=== PATIENT | female | born 1955 | race Caucasian/White ===

== ENCOUNTER 2018-06-03 15:31 | Emergency (ER) | payer MEDICARE, SELFPAY ==
[2018-06-03 15:32] VITALS: BP 104/58; PULSE 59; RESP 16; TEMP 36.6; O2SAT 98; BMI 44.4
--- NOTE | 2018-06-03 15:59 | ED.VISSUMM ---
- ER Visit Summary Date of Service: 06/03/18 Chief Complaint: Right ear pain and drainage History of Present Illness: The patient is a 63 F presents to the emergency department with right ear pain and drainage. Patient has had symptoms for the past 2 or 3 days. She states she has had a lot of drainage from right ear and decreased hearing. She denies any fevers or chills. She has had a scant cough. She denies any nausea or vomiting. Patient has no history of diabetes. She states that her ear to get wet about a week ago. Physical Examination: Vital signs reviewed General: Well-nourished, well-developed Head: Normocephalic, atraumatic Eyes: Pupils equal and reactive, extraocular muscles intact ENT: Patient has otitis externa of the right ear. There is no perforation. There is no mastoid tenderness. Left ear is normal. Neck, supple, no lymphadenopathy Heart: Regular rate and rhythm Respiratory: No distress, clear bilaterally Abdomen: Soft, nontender, nondistended, no peritoneal signs Back: Nontender Extremities: Nontender, no edema, no cords Skin: Normal color no rash Neuro: Alert and oriented, no focal or lateralizing deficits Test Results: [] Emergency Department Course and Treatment: Patient has acute otitis externa of the left ear. There is no evidence of malignant otitis externa. The canal itself is almost swollen closed. It would not hold a wick. With this, the patient will be started on oral Cipro. She will be continued on this as an outpatient. She will be discharged home. Treatment Plan: [] Disposition: Discharge Impression: 1. Otitis externa of the right ear This note was generated with [employer] dictation software. It may contain incorrect words, spelling, and punctuation that were not noted in review of the chart prior to signing ED Disposition - Plan for ED Patient: Chief Complaint: Ear Problem Instructions: ED Otitis Externa Prescriptions: Ciprofloxacin [Cipro] 500 mg PO BID #14 tab Referrals: Rufino Howard MD [Primary Care Provider] -
[2018-06-03] MEDS: Ciprofloxacin 500 MG Tablet PO (16:18)
[2018-06-03 16:19] VITALS: RESP 18
== END 2018-06-03 16:19 | disposition home or self-care (01) ==
PROVIDERS: Emergency Provider Emergency Medicine
DX: H60.91 Unspecified otitis externa, right ear (principal); I10 Essential (primary) hypertension; Z72.0 Tobacco use
CPT/HCPCS: 99283

== ENCOUNTER → 2018-07-21 15:32 | Outpatient (CLI) | payer MEDICARE, SELFPAY | PROVIDERS: Visit Provider Otolaryngology | DX: H92.10 Otorrhea, unspecified ear (principal) | CPT/HCPCS: 87070; 87075; 87077; 87186; 87205 ==

== ENCOUNTER 2020-09-10 19:09 | Emergency (ER) | payer MEDICARE, MEDICAID, SELFPAY ==
[2020-09-10 19:10] VITALS: BP 135/87; PULSE 60; RESP 17; TEMP 36.3; O2SAT 98; BMI 41.0
--- NOTE | 2020-09-10 19:23 | ED.DCSUM_ITS ---
History of Present Illness Chief Complaint: Back Informant: Patient Onset: Days Context: Gradual Onset Timing: Continuous Current Severity: Moderate Maximum Severity: Moderate Narrative: Patient is a 65-year-old female with medical history significant for hypertension and prior back pain that presents to the emergency department increasing low back pain. The patient states that she had a fall about a week ago. She was in her kitchen. She states that she was doing some cleaning and stepped back and lost her balance. She fell to the ground on her buttocks. She states since then, she is had pain in her lumbar back. It is nonradiating. It does not go down the legs. She denies any trouble urinating or moving her bowels. She states that she is tried Tylenol and muscle relaxer with little improvement. She is still able to ambulate without issue. Prior similar symptoms: No Recent Illness/Hospitalization: No Past Medical History - Allergies and Home Meds Allergies/Adverse Reactions: Allergies No Known Allergies Allergy (Verified 09/10/20 19:10) Primary Care Physician: Rufino Jernigan MD [Primary Care Provider] - Prior records reviewed: Yes Past Medical History: - - Hypertension Surgical History: noncontributory, TURP Smoking Status: Current every day smoker Review of Systems General: Denies: Chills, Fever, Sweats Eyes: Denies: Visual changes - bilaterally, Diplopia ENT: Denies: Rhinorrhea, Sore throat Cardiovascular: Denies: Chest pain, Palpitations Respiratory: Denies: Dyspnea, Cough, Dyspnea on exertion Gastrointestinal: Denies: Abdominal pain, Nausea, Vomiting, Diarrhea, Melena, Hematochezia Genitourinary: Denies: Dysuria, Hematuria, Frequency Musculoskeletal: Reports: Back pain. Denies: Extremity Pain Skin: Denies: Rash, Wounds Neurological: Denies: Headache, Weakness, Numbness Physical Exam Vital Signs/Narrative: Vital Signs Temp Pulse Resp BP Pulse Ox 09/10/20 19:10 97.3 F L 60 17 135/87 H 98 Inital Vital Signs reviewed: Yes General: Well nourished, Well developed, No Acute Distress Head: Normocephalic, Atraumatic Eyes: Perrl, EOMI ENT: Moist mucous membranes, No rhinorrhea Neck: Supple, Nontender Cardiovascular: Regular rate, Regular rhythm, No murmurs Respiratory: No distress, CTA bilaterally, Chest nontender Abdomen: Soft, Nontender, Nondistended, Normal bowel sounds Back: Normal Inspection, - - Paraspinal lumbar tenderness. No midline bony tenderness. No step-off. Extremities: Nontender, No edema Skin: Normal color, No rash Neurological: Alert, Oriented x3, Cranial nerves II-XII grossly intact, Normal Strength, Normal Sensation Psychological: Normal affect, Normal Mood Diagnostic/Tx/Re-eval Clinical Impression(s) from Imaging Studies Lumbar Spine X-Ray 09/10/20 19:25 IMPRESSION: No fracture or dislocation in the lumbar spine. Stable mild to moderate degenerative changes which are most pronounced at L5/S1. Electronically Signed: Mazin Vance, at 20:19 EDT Tel , Service support , - Medical Decision Making The patient presents with low back pain. She did have a fall. She has no red flag symptoms. She has a normal gait. She has no significant midline tenderness. However, given trauma and advanced age I did obtain plain films. There is no evidence of acute fracture. Patient was given 1 [place] with improvement of her symptoms. I do suspect that this is likely just lumbar strain. I will treat her with a short course of analgesics. She is comfortable with this plan of care and will be discharged home. Impression 1. Lumbar contusion ED Disposition - Plan for ED Patient: Disposition: Home or Assisted Living Instructions: ED LUMBAR SPRAIN/STRAIN Prescriptions: Hydrocodone Bitart/Apap 5-325 [[place] 5MG-325MG] 1 tab PO Q6H PRN PRN 3 Days #10 tab PRN Reason: Pain Prescription Printed Referrals: Rufino Jernigan MD [Primary Care Provider] -
--- NOTE | 2020-09-10 19:25 | RAD_ITS ---
STUDY: X-RAY - LUMBAR SPINE REASON FOR EXAM: Female, 65 years old. Fall. Pain. TECHNIQUE: 3 view(s) of the lumbar spine were obtained. COMPARISON: 03/10/15 FINDINGS: There is no evidence of fracture or dislocation in the lumbar spine. The vertebral body heights are well-maintained. There are stable [id number] degenerative changes which are most pronounced at L5/S1. RAD/Lumbar Spine 2 or 3 Views IMPRESSION: No fracture or dislocation in the lumbar spine. Stable mild to moderate degenerative changes which are most pronounced at L5/S1. Electronically Signed: Mazin Vance, at 20:19 EDT Tel , Service support ,
[2020-09-10] MEDS: HYDROcodone Bitartrate/Apap 5/325 Tablet PO (19:43)
[2020-09-10 20:47] VITALS: RESP 18
== END 2020-09-10 20:47 | disposition home or self-care (01) ==
LOC: ED 19:49
PROVIDERS: Emergency Provider Emergency Medicine; PCP Family Medicine
DX: S30.0XXA Contusion of lower back and pelvis, initial encounter (principal); I10 Essential (primary) hypertension; F17.200 Nicotine dependence, unspecified, uncomplicated; Z79.899 Other long term (current) drug therapy; W18.39XA Other fall on same level, initial encounter; Y93.E9 Activity, other interior property and clothing maintenance; Y92.000 Kitchen of unspecified non-institutional (private) residence as the place of occurrence of the external cause; Y99.9 Unspecified external cause status
CPT/HCPCS: 72100; 99281; 99283

== ENCOUNTER 2020-09-14 19:58 | Emergency (ER) | payer MEDICARE, MEDICAID, SELFPAY ==
[2020-09-14 19:59] VITALS: BP 130/82; PULSE 61; RESP 16; TEMP 35.9; O2SAT 99; BMI 41.1
[2020-09-14 20:28] VITALS: O2SAT 96
--- NOTE | 2020-09-14 20:50 | RAD_ITS ---
STUDY: X-RAY CHEST REASON FOR EXAM: Female, 65 years old. COUGH and amp; STUFFY NOSE X 4 DAYS -- HX OF HTN AND CHRONIC BRONCHITIS TECHNIQUE: Frontal and lateral views of the chest. COMPARISON: 11/12/2017 FINDINGS: The lungs remain hyperinflated. There is no new focal consolidation. Normal size heart. Normal mediastinum and dony. Normal visualized pulmonary arteries. Normal visualized aortic arch and descending thoracic aorta. There are diffuse degenerative changes of the visualized thoracic spine. Normal visualized ribs, clavicles, and shoulders. There is no demonstrated abnormality of the visualized soft tissue structures of the upper abdomen. RAD/Chest PA and Lateral IMPRESSION: No acute cardiopulmonary process. Electronically Signed: Radha Jerez MD at 21:12 EDT Tel , Service support ,
--- NOTE | 2020-09-14 20:51 | ED.VIS.GEN ---
History of Present Illness Chief Complaint: Cough Narrative: This patient is a 65-year-old female who presents with chief complaint of I think I have bronchitis. She is had about 4 days of URI-like illness. She complains of congestion and rhinorrhea. She complains of cough. No chest pain no shortness of breath no fevers or vomiting. Her son was ill with a similar URI-like illness and is improving now. Past Medical History - Allergies and Home Meds Allergies/Adverse Reactions: Allergies No Known Allergies Allergy (Verified 09/14/20 20:02) Primary Care Physician: Rufino Jernigan MD [Primary Care Provider] - Past Medical History: - - Hypertension Surgical History: noncontributory, TURP Smoking Status: Current every day smoker Review of Systems All systems negative except as indicated General: Denies: Fever ENT: Reports: - - Congestion, rhinorrhea Cardiovascular: Denies: Chest pain Respiratory: Reports: Cough. Denies: Dyspnea Gastrointestinal: Denies: Vomiting, Diarrhea Skin: Denies: Rash Neurological: Denies: Headache Physical Exam Vital Signs/Narrative: Vital Signs Temp Pulse Resp BP Pulse Ox 09/14/20 19:59 96.6 F L 61 16 130/82 H 99 Inital Vital Signs reviewed: Yes General: Well nourished Head: Normocephalic Eyes: EOMI ENT: Moist mucous membranes Neck: Supple Cardiovascular: Regular rate Respiratory: No distress, Wheezing - Scattered expiratory wheezing. Negative for: Rales, Rhonchi Abdomen: Soft Skin: Normal color Neurological: Alert Psychological: Normal affect Diagnostic/Tx/Re-eval Impressions Chest X-Ray 09/14/20 20:50 IMPRESSION: No acute cardiopulmonary process. Electronically Signed: Radha Jerez MD at 21:12 EDT Tel , Service support , 09/14/20 20:50 Chest PA and Lateral [RAD] Stat - Medical Decision Making Patient was given a DuoNeb aerosol. Chest x-ray as above is negative. Patient's presentation is consistent with a viral bronchitis. Given her wheezing we will place on a steroid burst and she was also given a prescription for an albuterol inhaler. Patient was discharged. Patient does understand return for new or worsening symptoms. ED Disposition - Plan for ED Patient: Disposition: Home or Assisted Living Diagnosis: Bronchitis Instructions: Acute Bronchitis Prescriptions: predniSONE tablet 60 mg PO DAILY #15 tab Prescription Printed Albuterol Inhaler [Ventolin Hfa] 1 - 2 puff INHALATION Q4H PRN PRN #1 inhaler PRN Reason: Wheezing Prescription Printed Referrals: Rufino Jernigan MD [Primary Care Provider] -
[2020-09-14 21:10] VITALS: PULSE 88; RESP 16
[2020-09-14] MEDS: Ipratropium/Albuterol Sulfate 3 ML AMPUL.NEB INHALATION (21:10)
[2020-09-14 22:01] VITALS: BP 129/78; PULSE 61; RESP 16; O2SAT 96
== END 2020-09-14 22:02 | disposition home or self-care (01) ==
LOC: ED 21:53
PROVIDERS: Emergency Provider Emergency Medicine; PCP Family Medicine
DX: J40 Bronchitis, not specified as acute or chronic (principal); F17.200 Nicotine dependence, unspecified, uncomplicated; I10 Essential (primary) hypertension
CPT/HCPCS: 71046; 94640; 99282

== ENCOUNTER 2021-03-14 19:50 | Emergency (ER) | payer MEDICARE, MEDICAID, SELFPAY ==
[2021-03-14 19:51] VITALS: BP 131/76; PULSE 62; RESP 15; TEMP 35.8; O2SAT 98; BMI 41.1
[2021-03-14 19:53] VITALS: BP 131/76; PULSE 62; RESP 15; TEMP 35.8; O2SAT 98
--- NOTE | 2021-03-14 20:02 | ED.DCSUM_ITS ---
History of Present Illness Chief Complaint: Cold Sx Narrative: Patient presents with cough and congestion for 4 to 5 days it is now becoming slightly productive. She has had similar symptoms in the past with bronchitis successfully treated with antibiotics and steroids. She has no fever or chills she has no shortness of breath. She has some upper airway congestion. No chest pain. She has no breathing difficulty. No abdominal pain no back pain no tearing sensation. No pleuritic component. Past medical history: Hypertension, history of bronchitis Medications: Reviewed Social history: Non-smoker otherwise noncontributory Review of systems: All systems negative except as indicated General: No fever Eyes: No visual changes ENT: Upper airway congestion as in HPI. No difficulty swallowing no change in voice. Neck: No neck pain Cardiovascular: No chest pain Respiratory: No shortness of breath. Somewhat productive cough as in HPI Gastrointestinal: No abdominal pain, nausea vomiting or diarrhea Genitourinary: No dysuria Musculoskeletal: Denies myalgias no difficulty with ambulation Skin: No rash Neurological: No memory loss, confusion or any focal weakness Psych: No recent behavioral changes Hematologic: No easy bleeding or easy bruising Physical exam General: Well nourished, Well developed, No Acute Distress Head: Normocephalic, Atraumatic Eyes: Conjunctiva not pale ENT: Moist mucous membranes. There is some upper airway congestion and rhinorrhea. Normal voice. Normal soft palate some postnasal drip. Neck: Supple, Nontender, No lymphadenopathy Cardiovascular: Regular rate, Regular rhythm Respiratory: No distress, CTA bilaterally Abdomen: Soft, Nontender, Nondistended Back: Nontender, Normal Inspection. Negative for: CVA tenderness Extremities: Nontender, No edema Skin: Normal color, No rash Neurological: Alert, Normal Strength, Normal Sensation Psychological: Normal affect Past Medical History - Allergies and Home Meds Allergies/Adverse Reactions: Allergies No Known Allergies Allergy (Verified 03/14/21 19:54) Primary Care Physician: Rufino Jernigan MD [Primary Care Provider] - Surgical History: noncontributory, TURP Smoking Status: Former smoker Physical Exam Vital Signs/Narrative: Vital Signs Temp Pulse Resp BP Pulse Ox 03/14/21 19:53 96.5 F L 62 15 131/76 H 98 03/14/21 19:51 96.5 F L 62 15 131/76 H 98 Diagnostic/Tx/Re-eval - Medical Decision Making Patient signs and symptoms are consistent with bronchitis, I will treat as such. ED Disposition - Plan for ED Patient: Disposition: Home or Assisted Living Diagnosis: Acute bronchitis Instructions: ED Upper Resp Infec Abx Tx Prescriptions: Prednisone [Deltasone] 20 mg PO DAILY #4 tablet Transmission Status: Pending to [facility]30 Doxycycline 100 mg PO BID #20 capsule Transmission Status: Pending to [facility] Referrals: Rufino Jernigan MD [Primary Care Provider] - 2 Days
[2021-03-14] MEDS: predniSONE 20 MG Tablet 40 MG PO (20:30)
[2021-03-14] MEDS: Doxycycline 100 MG CAPSULE PO (20:30)
[2021-03-14 20:34] VITALS: RESP 14
== END 2021-03-14 20:34 | disposition home or self-care (01) ==
LOC: ED 20:17
PROVIDERS: Emergency Provider Emergency Medicine; PCP Family Medicine
DX: J20.9 Acute bronchitis, unspecified (principal); Z87.891 Personal history of nicotine dependence; I10 Essential (primary) hypertension
CPT/HCPCS: 99283

== ENCOUNTER 2022-03-31 12:28 | Emergency (ER) | payer MEDICARE, MEDICAID, SELFPAY ==
[2022-03-31 12:30] VITALS: BP 141/83; PULSE 43; RESP 12; TEMP 35.2; O2SAT 95; BMI 45.3
--- NOTE | 2022-03-31 12:44 | EKG12_ITS ---
Test Reason : XOCHITL Blood Pressure : / mmHG Vent. Rate : 043 BPM Atrial Rate : 043 BPM P-R Int : 180 ms QRS Dur : 102 ms QT Int : 510 ms P-R-T Axes : 066 -11 018 degrees QTc Int : 430 ms Marked sinus bradycardia Abnormal ECG Confirmed by ESME SANTA, ARVIND ([id number]), primer expeditor and drier BAMBI BEST ([id number]) on 04/02/2022 8:12:14 AM Referred By: ROSIE Confirmed By:LORI VICTORIA MD
--- NOTE | 2022-03-31 12:46 | EX.ED.DYSGE1 ---
HPI History of Present Illness Chief Complaint: General Illness Informant: patient Narrative Narrative: Patient sent to the ED for evaluation for asymptomatic bradycardia. I spoke with healthcare provider prior to arrival. Patient went there for normal health visit today. Found to heart rate in the 30s at 35 reported EKG heart rate was 39. She is on metoprolol 50 mg twice daily for hypertension. Also on lisinopril and hydrochlorothiazide. Denies any recent vomiting or diarrhea denies lightheaded or any exertional dyspnea symptoms. She does not know her baseline heart rate at this time. I reviewed patient's EKG from the office there is sinus rate of 39 due to artifacts that baseline unable to evaluate any clear heart blocks. QTc 420. Prior similar symptoms: No PFSH [facility] Medical History (Updated 03/31/22 @ 15:[address] Clinton Jovel DO) HTN (hypertension) Home Medications hydrochlorothiazide 25 mg PO DAILY 06/03/18 [History Last Taken Unknown] lisinopril 10 mg PO DAILY 06/03/18 [History Last Taken Unknown] metoprolol tartrate 50 mg PO BID 06/03/18 [History Last Taken Unknown] albuterol sulfate 1 - 2 puff INHALATION Q4H PRN PRN #1 inhaler 09/14/20 [Rx Last Taken Unknown] prednisone 60 mg PO DAILY #15 tab 09/14/20 [Rx Last Taken Unknown] doxycycline monohydrate 100 mg PO BID #20 capsule 03/14/21 [Rx Last Taken Unknown] prednisone 20 mg PO DAILY #4 tablet 03/14/21 [Rx Last Taken Unknown] Allergy/AdvReac Type Severity Reaction Status Date / Time No Known Allergies Allergy Verified 03/31/22 12:30 Social History Smoking Status: Smoker, status unknown tobacco type: cigarettes ROS ROS ED Constitutional Constitutional ED: Denies chills, fever(s) or sweats Eyes Eyes: Denies change in vision ENT ENT ED: Denies dysphagia or sore throat Cardiovascular Cardiovascular: Denies chest pain, leg edema, palpitations or racing heartbeat Respiratory/Chest Respiratory/Chest: Denies cough, dyspnea or dyspnea on exertion Gastrointestinal Gastrointestinal: Denies abdominal pain, diarrhea, nausea or vomiting Genitourinary Genitourinary ED: Denies dysuria, hematuria or urinary frequency Musculoskeletal Musculoskeletal: Denies back pain, extremity pain or neck pain Integumentary Denies rash or wounds Neurologic Neurologic: Denies headache(s), paresthesias or weakness EXAM Physical Exam Const Vital Signs: 03/31/22 12:30 03/31/22 13:01 03/31/22 13:13 Temperature 95.4 F L Temperature Source Temporal Pulse Rate 43 L 46 L Respiratory Rate 12 22 H Respiratory Effort Normal Respiratory Pattern Normal Blood Pressure 141/83 H 105/70 Blood Pressure Mean 102 81 Pulse Ox 95 98 Oxygen Delivery Method Room Air Room Air Positive well nourished and well developed General Appearance ED: well developed and NAD HEENT Reports moist mucous membranes normocephalic and atraumatic Eyes PERRL, EOMs intact bilaterally and conjunctivae normal General Eye ED: Yes normal appearance of both eyes Neck no lymphadenopathy and supple General: Negative for tenderness Chest Wall Chest: Negative for tenderness Resp normal respiratory effort and normal air movement Effort and Inspection: symmetric chest movement; Negative for respiratory distress Cardio regular rhythm and no murmurs Rate: bradycardia Peripheral Pulses: pulses 2+ throughout GI normal to inspection, nondistended, normoactive bowel sounds and non-tender Palpation: Negative for guarding or rebound tenderness present Back/Spine no CVA tenderness and no thoracic nor lumbar tenderness Extremity normal to inspection General Extremety ED: Negative for edema or tenderness General Extremity: Negative for edema Neuro oriented x3 and no sensory deficits noted Sensorium / Orientation: awake and alert Skin no rashes or lesions noted and no wounds MDM MDM MDM Narrative Medical decision making narrative: Heart rate in the 40s on the monitor sinus rhythm, blood pressure 141/83. Will recheck EKG. Will check labs. will reevaluate. EKG is sinus rate of 43 there is no signs of heart block. Patient laboratory studies stable TSH slightly elevated at 7. Sent for free T4 level which is pending. Patient remained stable blood pressure systolic 140s dipped down to 105 at 1 point however rechecked prior to discharge with systolic 140s. She remained asymptomatic she walked in here. She is on metoprolol. Plan is to hold metoprolol and have her see her PCP. I spoke with her PCP Dr. Jernigan who request I speak with cardiology. also reported she had 2 no-shows in the office concerns of follow-up. I spoke with on-call sustainment logistics analyst, Dr. Art, who agrees with holding metoprolol she needs to see her PCP in 2 days for repeat EKG. I spoke with patient who states she will follow-up with her PCP. I respoke with her PCP who will get her in to the office on Tuesday. Lab Data Labs: Laboratory Results - last 24 hr 03/31/22 03/31/22 03/31/22 13:10 13:10 13:43 WBC Cancelled 9.2 Corrected WBC Cancelled RBC Cancelled 5.09 Hgb Cancelled 14.4 Hct Cancelled 45.3 MCV Cancelled 89.0 MCH Cancelled 28.3 MCHC Cancelled 31.8 L RDW Std Deviation Cancelled 43.8 RDW Coeff of Terrie Cancelled 13.5 Plt Count Cancelled 195 MPV Cancelled 11.9 Immature Gran % (Auto) Cancelled 0.500 Neut % (Auto) Cancelled 56.9 Lymph % (Auto) Cancelled 17.9 L Glenn % (Auto) Cancelled 5.4 Eos % (Auto) Cancelled 17.9 H Baso % (Auto) Cancelled 1.4 H Absolute Neuts (auto) Cancelled 5.2 Absolute Lymphs (auto) Cancelled 1.65 Total Counted Cancelled Neutrophils % (Manual) Cancelled Band Neutrophils % Cancelled Lymphocytes % (Manual) Cancelled Monocytes % (Manual) Cancelled Eosinophils % (Manual) Cancelled Basophils % (Manual) Cancelled Metamyelocytes % Cancelled Myelocytes % Cancelled Promyelocytes % Cancelled Blast Cells % Cancelled Plasma Cell % (Manual) Cancelled Other Cells % Cancelled Nucleated RBC % Cancelled 0 Nucleated RBCs/100 WBC Cancelled Differential Comment Cancelled Diff Path Review Cancelled Hypersegmented Neuts Cancelled Atypical Lymphocytes Cancelled Reactive Lymphocytes Cancelled Smudge Cells Cancelled Toxic Granulation Cancelled Toxic Vacuolation Cancelled Dohle Bodies Cancelled Krystal Rods Cancelled Platelet Estimate Cancelled Plt Morphology Comment Cancelled RBC Morphology Cancelled Polychromasia Cancelled Hypochromasia Cancelled Poikilocytosis Cancelled Basophilic Stippling Cancelled Anisocytosis Cancelled 1+ Microcytosis Cancelled Macrocytosis Cancelled Spherocytes Cancelled Sickle Cells Cancelled Target Cells Cancelled Tear Drop Cells Cancelled Ovalocytes Cancelled Stomatocytes Cancelled [place] Bodies Cancelled [place] Cells Cancelled Bite Cells Cancelled Crenated Cell Cancelled Acanthocytes (Spur) Cancelled Rouleaux Cancelled Schistocytes Cancelled Sodium Cancelled Potassium Cancelled Chloride Cancelled Carbon Dioxide Cancelled Anion Gap Cancelled BUN Cancelled Creatinine Cancelled Estim Creat Clear Calc Cancelled Est GFR (MDRD) Af Amer Cancelled Est GFR (MDRD) Non-Af Cancelled BUN/Creatinine Ratio Cancelled Glucose Cancelled Calcium Cancelled Magnesium Cancelled TSH Cancelled Free T4 03/31/22 03/31/22 13:43 13:43 WBC Corrected WBC RBC Hgb Hct MCV MCH MCHC RDW Std Deviation RDW Coeff of Terrie Plt Count MPV Immature Gran % (Auto) Neut % (Auto) Lymph % (Auto) Glenn % (Auto) Eos % (Auto) Baso % (Auto) Absolute Neuts (auto) Absolute Lymphs (auto) Total Counted Neutrophils % (Manual) Band Neutrophils % Lymphocytes % (Manual) Monocytes % (Manual) Eosinophils % (Manual) Basophils % (Manual) Metamyelocytes % Myelocytes % Promyelocytes % Blast Cells % Plasma Cell % (Manual) Other Cells % Nucleated RBC % Nucleated RBCs/100 WBC Differential Comment Diff Path Review Hypersegmented Neuts Atypical Lymphocytes Reactive Lymphocytes Smudge Cells Toxic Granulation Toxic Vacuolation Dohle Bodies Krystal Rods Platelet Estimate Plt Morphology Comment RBC Morphology Polychromasia Hypochromasia Poikilocytosis Basophilic Stippling Anisocytosis Microcytosis Macrocytosis Spherocytes Sickle Cells Target Cells Tear Drop Cells Ovalocytes Stomatocytes [place] Bodies Kun Cells Bite Cells Crenated Cell Acanthocytes (Spur) Rouleaux Schistocytes Sodium 140 Potassium 3.5 Chloride 103 Carbon Dioxide 33.0 H Anion Gap 4 L BUN 17 Creatinine 1.16 H Estim Creat Clear Calc 36.71 Est GFR (MDRD) Af Amer 60 Est GFR (MDRD) Non-Af 49 L BUN/Creatinine Ratio 14.7 Glucose 129 H Calcium 9.4 Magnesium 1.9 TSH 7.07 H Free T4 0.79 EKG Initial EKG: Attestation: I personally reviewed and interpreted this EKG as follows: Comments: Sinus rate of 43, no ST or T wave changes, QTC 430. No signs of heart block. Discharge Plan Triage Chief Complaint: General Illness ED Provider: Clinton Jovel Dx/Rx/DC Orders Clinical Impression: Sinus bradycardia, History of hypertension Instructions: ED Bradycardia Prescriptions: No Action lisinopril 10 MG tablet 10 mg PO DAILY RF: 0 metoprolol tartrate 50 MG tablet 50 mg PO BID RF: 0 hydrochlorothiazide 25 MG tablet 25 mg PO DAILY RF: 0 prednisone 20 MG tablet 60 mg PO DAILY Qty: 15 RF: 0 albuterol sulfate 1 INHALER inhaler 1 - 2 puff INHALATION Q4H PRN PRN (Reason: Wheezing) Qty: 1 RF: 0 prednisone 20 MG tablet 20 mg PO DAILY Qty: 4 RF: 0 doxycycline monohydrate 100 MG capsule 100 mg PO BID Qty: 20 RF: 0 Primary Care Provider: Rufino Jernigan Referrals: Rufino Jernigan MD [Primary Care Provider] - 2 Days Activity Restrictions/Additional Instructions: You have sinus bradycardia EKG there is no signs of heart block. Your TSH is 7.07. Free levels are sent and pending. Other electrolytes are normal. Hold your metoprolol. Per cardiology recommendations. You need to see your PCP office in 2 days for repeat EKG. You develop any symptoms of lightheaded, exertional dyspnea or syncopal episodes return to the ED immediately. Disposition Disposition: Home, Self Care
[2022-03-31 13:13] VITALS: BP 105/70; PULSE 46; RESP 22; O2SAT 98
--- NOTE | 2022-03-31 13:22 | NURSING ---
CBC IS CLOTTED, LAB WILL REPRINT LABEL
[2022-03-31 13:51] LABS: Absolute Lymphocyte Count 1.65 X10^3/uL (0.83-4.51); Absolute Neutrophil Count 5.2 X10^3/uL (2.0-7.7); Basophil# 0.13 X10^3/uL; Basophil% 1.4 % (0-1); Eosinophil# 1.65 X10^3/uL; Eosinophils% 17.9 % (0-5); Hematocrit 45.3 % (37-47); Hemoglobin 14.4 g/dL (12.0-15.0); Lymphocyte # 1.65 X10^3/ul (0.83-4.51); Lymphocyte % 17.9 % (19-41); Mean Corp Hgb Conc 31.8 g/dL (32-36); Mean Corpuscular Hgb 28.3 pg (27.0-32.0); Mean Platelet Vol. 11.9 fl (6.2-12.0); Monocyte% 5.4 % (0-10); NRBC Flagged by Analyzer 0 % (0-5); Neutrophil # 5.22 X10^3/uL (2.7-7.7); Neutrophil % 56.9 % (47-70); POSITIVE MORPHOLOGY YES; Platelet Count 195 K/mm3 (150-450); RBC Distribution Width CV 13.5 % (11.6-14.6); RBC Distribution Width SD 43.8 fl (35.1-43.9); Red Blood Count 5.09 M/mm3 (4.2-5.4); White Blood Count 9.2 K/mm3 (4.4-11.0)
[2022-03-31 13:56] LABS: Differential Indicated SCAN CRITERIA MET
[2022-03-31 14:15] LABS: Anion Gap 4 (5-15); BUN 17 mg/dL (7-18); BUN/Creat Ratio 14.7 RATIO (10-20); Calcium,Total 9.4 mg/dL (8.5-10.1); Chloride 103 mmol/L (98-107); Creatinine, Serum 1.16 mg/dL (0.55-1.02); EST Glomerular Filtration Rate 49 mL/min (>60); Est Glom Filt Rate - Afr Amer 60 mL/min (>60); Estimated Creatinine Clearance 36.71 ml/min; Glucose 129 mg/dL (74-106); Magnesium 1.9 mg/dL (1.6-2.6); Potassium 3.5 mmol/L (3.5-5.1); Sodium Level 140 mmol/L (136-145); Thyroid Stim Hormone (TSH) 7.07 uIU/mL (0.358-3.74)
[2022-03-31 14:22] LABS: Anisocytosis 1+
[2022-03-31 15:07] LABS: T4 Free Direct 0.79 ng/dL (0.76-1.46)
[2022-03-31 15:23] VITALS: BP 115/77; PULSE 48; RESP 16; TEMP 36.9; O2SAT 98
== END 2022-03-31 15:41 | disposition home or self-care (01) ==
PROVIDERS: Emergency Provider Emergency Medicine; PCP Family Medicine; Visit Provider Emergency Medicine
DX: R00.1 Bradycardia, unspecified (principal); I10 Essential (primary) hypertension; F17.210 Nicotine dependence, cigarettes, uncomplicated
CPT/HCPCS: 36415; 80048; 83735; 84439; 84443; 85025; 93005; 99284; A4216

== ENCOUNTER 2023-08-30 11:44 | Inpatient (IN) | payer MEDICARE, MEDICAID, SELFPAY ==
[2023-08-30] VITALS (7 sets, daily range): BP systolic 121–142; BP diastolic 78–97; PULSE 71–101; RESP 16–21; TEMP 35.2–36.9; O2SAT 93–100; BMI 41.7; BMI 40.9
--- NOTE | 2023-08-30 12:01 | CT_ITS ---
STUDY: CT ABDOMEN AND PELVIS WITH CONTRAST REASON FOR EXAM: Female, 68 years old. Abdominal pain. Blood in the stool. RADIATION DOSAGE (If Supplied By Facility): CTDIvol = ( 15.19 ) mGy, DLP = ( 1147.32 ) mGycm TECHNIQUE: Transaxial images were obtained from the dome of the diaphragm to the symphysis pubis without oral contrast. IV 100mL Isovue-300 was administered. Sagittal and coronal images were reconstructed. Individualized dose optimization techniques were used for this CT. COMPARISON: None. FINDINGS: The visualized lung bases are unremarkable. Coronary artery calcification. There is decreased attenuation of the liver consistent with steatosis. Normal gallbladder and extrahepatic biliary system. There are multiple benign calcified granulomata of the spleen. There is a 1 cm partially calcified splenic artery aneurysm in the region of the splenic hilum. There is diffuse atrophy of the pancreas. There is a small, circumscribed, smooth, low attenuation left adrenal mass, consistent with an adrenal adenoma. This measures 2.2 cm. This is essentially unchanged as compared to prior study dated August 31, 2012. Normal right adrenal gland. Normal right kidney. 1 cm cyst in the lower pole of the left kidney. Normal visualized stomach. Normal small intestine. Diffuse circumferential wall thickening of the distal half of the transverse colon in the left hemicolon down to the rectum with colitis. Increased markings are seen in the surrounding peritoneal fat with the increased markings in the left perinephric space. There is scattered atherosclerotic calcification of the abdominal aorta and its major visceral branches., without a demonstrated aneurysm. Normal inferior vena cava. Normal retroperitoneum. Normal urinary bladder. Small amount of fluid is seen in the pelvis. Normal abdominal wall. Disc space narrowing and degeneration at the L5-S1 level. Stable bilateral pars defects at the L5 vertebrae. CT/Abdomen/Pelvis W IV Cont ONLY IMPRESSION: Colitis as described. Diffuse fatty infiltration of the liver. 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 Small left adrenal adenoma. Electronically Signed: Kenny Bonilla MD at 13:54 EDT ,
--- NOTE | 2023-08-30 12:01 | ED.VIS.GI ---
HPI HPI - GI History of Present Illness Chief Complaint: GI Bleed Narrative Narrative: 68-year-old female presenting for evaluation of blood in her stool x3 days. States she only has it when she has a bowel movement but she is not passing stool. She only has blood coming out of her rectum. She states that she did not try a laxative or stool softener even though she has not had a bowel movement 3 days. She states she took some Pepto-Bismol which did not help the abdominal pain or stop the bleeding. She has had some vomiting as well states she vomited for the last couple of days. She states it is sporadic. She states her vomit is basically clear fluids. No fever at home. Her only abdominal surgery was a hysterectomy. No urinary, vaginal complaints. She complains of lower abdominal pain in the right lower quadrant in the left lower quadrant. PFSH PFS Medical History HTN (hypertension) Home Medications hydrochlorothiazide 25 mg tablet 25 mg PO DAILY 06/03/18 [History Last Taken Unknown] lisinopril 10 mg tablet 10 mg PO DAILY 06/03/18 [History Last Taken Unknown] metoprolol tartrate 50 mg tablet 50 mg PO BID 06/03/18 [History Last Taken Unknown] albuterol sulfate 90 mcg/actuation aerosol inhaler 1 - 2 puff inhalation Q4H PRN PRN Wheezing ##1 09/14/20 [Rx Last Taken Unknown] prednisone 20 mg tablet 60 mg (3 x 20 mg) PO DAILY ##15 09/14/20 [Rx Last Taken Unknown] doxycycline monohydrate 100 mg capsule 100 mg PO BID #20 CAPSULES 03/14/21 [Rx Last Taken Unknown] prednisone 20 mg tablet 20 mg PO DAILY #4 tabs 03/14/21 [Rx Last Taken Unknown] Allergy/AdvReac Type Severity Reaction Status Date / Time No Known Allergies Allergy Verified 08/30/23 11:45 Social History Smoking Status: Smoker, status unknown tobacco type: cigarettes ROS ROS ED Constitutional Constitutional ED: Denies chills, fever(s) or sweats Eyes Eyes: Denies blurry vision or change in vision ENT ENT ED: Denies ear pain or sore throat Cardiovascular Cardiovascular: Denies chest pain, palpitations or racing heartbeat Respiratory/Chest Respiratory/Chest: Denies cough, dyspnea or sputum Gastrointestinal Gastrointestinal: Reports abdominal pain, nausea, vomiting and other Details: Bright red bleeding per rectum ; Denies constipation or diarrhea Genitourinary Genitourinary ED: Denies dysuria, hematuria or urinary frequency Musculoskeletal Musculoskeletal: Denies arthralgias, myalgias or neck pain Integumentary Denies abscess, Abrasions or rash Neurologic Neurologic: Denies headache(s), paresthesias or weakness Psychiatric Psychiatric: Denies anxiety, depression, suicidal ideation or suicidal thoughts Endocrine Endocrinology: Denies polydipsia or polyuria EXAM Physical Exam Const Vital Signs: 08/30/23 11:45 08/30/23 13:46 Temperature 95.4 F L Temperature Source Temporal Pulse Rate 101 H 71 Respiratory Rate 18 18 Blood Pressure 124/97 H 131/81 H Blood Pressure Mean 106 97 Pulse Ox 100 93 Oxygen Delivery Method Room Air Positive well nourished General Appearance ED: NAD; Negative for pallor HEENT Reports moist mucous membranes normocephalic and atraumatic Eyes PERRL and EOMs intact bilaterally General Eye ED: Negative for pale conjunctiva Resp normal respiratory effort Effort and Inspection: Negative for respiratory distress Cardio regular rhythm Rate: tachycardic GI Palpation: tender LLQ and RLQ Back/Spine no CVA tenderness Neuro CN's II-XII intact bilaterally, moves all extremities and no sensory deficits noted Sensorium / Orientation: alert Psych mental status grossly normal and thought process normal Skin General Skin Exam: Negative for jaundice or pallor MDM MDM MDM Narrative Medical decision making narrative: Patient presenting with right flank pain. Differential includes colitis, diverticulitis, gastritis, constipation, appendicitis, UTI, pyelonephritis, calculi, ureteral calculi, obstruction, malignancy, dehydration, electrolyte abnormalities, ovarian torsion, ovarian cyst, ectopic , anemia, GI bleed. CBC will be obtained to assess white blood cell count, hemoglobin, differential. CMP to assess liver function, renal function, electrolytes, glucose, anion gap.. Urinalysis to assess for UTI. Patient was typed and screened due to history of GI bleeding. Slightly tachycardic so she was given a liter of normal saline. Status will be obtained. Patient states as far as her pain is concerned she can only describe it as pain. I after if it was sharp, stabbing, burning, aching, throbbing, squeezing, cramping however the patient states she can only describe it as pain. She states that the pain is currently not present. Her nausea is currently not present either. Clines analgesia and antiemetics. CBC shows a leukocytosis of 17.7. Hemoglobin stable at 14.1. Hematocrit 44.6. Platelets normal at 210. Creatinine slightly elevated at 1.[address] and was given IV fluids. Potassium slightly low at 3.0 otherwise electrolytes unremarkable. LFTs are normal. Lipase is negative. Analysis negative for infection. Patient was typed and screened although she does not need blood currently. CT of the abdomen pelvis shows diffuse colitis from the mid transverse colon to the rectum. Patient was discussed with Dr. Bro who recommended Zosyn. He also recommended enteropathogenic panel for stool, C. difficile, ESR, CRP, LDH, lactic acid which were all ordered and will be followed on the medical floor. Patient discussed with hospice for admission. Impression: 1. Nausea/vomiting 2. Colitis 3. GI bleed 4. Hypokalemia Lab Data Labs: Laboratory Results - last 24 hr 08/30/23 08/30/23 12:10 13:10 WBC 17.7 H RBC 5.16 Hgb 14.1 Hct 44.6 MCV 86.4 MCH 27.3 MCHC 31.6 L RDW Std Deviation 44.4 H RDW Coeff of Terrie 14.0 Plt Count 210 MPV 12.7 H Immature Gran % (Auto) 0.700 Neut % (Auto) 79.8 H Lymph % (Auto) 10.8 L [place] % (Auto) 5.4 Eos % (Auto) 2.7 Baso % (Auto) 0.6 Absolute Neuts (auto) 14.1 H Absolute Lymphs (auto) 1.90 Nucleated RBC % 0 Sodium 137 Potassium 3.0 L Chloride 103 Carbon Dioxide 27.0 Anion Gap 7 BUN 18 Creatinine 1.13 H Estim Creat Clear Calc 37.16 Est GFR (MDRD) Af Amer 61 Est GFR (MDRD) Non-Af 51 L BUN/Creatinine Ratio 15.9 Glucose 163 H Calcium 9.0 Total Bilirubin 1.00 AST 12 L ALT 17 Alkaline Phosphatase 72 Total Protein 7.0 Albumin 3.3 Globulin 3.7 Albumin/Globulin Ratio 0.9 Lipase 19 Urine Color Yellow Urine Clarity Clear Urine pH 6.5 Ur Specific [place] 1.015 Urine Protein 15 H Urine Glucose (UA) Normal Urine Ketones Negative Urine Occult Blood 10 H Urine Nitrite Negative Urine Bilirubin Negative Urine Urobilinogen Normal Ur Leukocyte Esterase 100 H Urine RBC 0 SEEN Urine WBC 5-10 SEEN Ur Squamous Epith Cells 0-5 SEEN Urine Bacteria RARE Urine Mucus 0 SEEN Blood Type A POSITIVE Antibody Screen NEGATIVE Radiography Diagnostic Testing: Clinical Impression(s) from Imaging Studies Abdomen/Pelvis CT 08/30/23 12:01 IMPRESSION: Colitis as described. Diffuse fatty infiltration of the liver. 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 Small left adrenal adenoma. Electronically Signed: Kenny Bonilla MD at 13:54 EDT , Discharge Plan Triage Chief Complaint: GI Bleed ED Provider: Erwin Adams Dx/Rx/DC Orders Prescriptions: No Action lisinopril 10 MG tablet 10 mg PO DAILY Patient Comments: Take 1 tablet by mouth once daily. metoprolol tartrate 50 MG tablet 50 mg PO BID Patient Comments: TAKE 1 TABLET TWICE DAILY hydrochlorothiazide 25 MG tablet 25 mg PO DAILY Patient Comments: Take 1 tablet by mouth once daily. prednisone 20 MG tablet 60 mg PO DAILY Qty: 15 0RF albuterol sulfate 1 INHALER inhaler 1 - 2 puff INHALATION Q4H PRN PRN (Reason: Wheezing) Qty: 1 0RF prednisone 20 MG tablet 20 mg PO DAILY Qty: 4 0RF Rx Instructions: With food doxycycline monohydrate 100 MG capsule 100 mg PO BID Qty: 20 0RF Primary Care Provider: Rufino Jernigan Referrals: Rufino Jernigan MD [Primary Care Provider] -
[2023-08-30] MEDS: 0.9% Normal Saline (1000mL) 1,000 ML 1000 ML IV (12:10)
[2023-08-30 12:36] LABS: Absolute Neutrophil Count 14.1 X10^3/uL (2.0-7.7); Basophil% 0.6 % (0-1); Eosinophil# 0.48 X10^3/uL; Eosinophils% 2.7 % (0-5); Hematocrit 44.6 % (37-47); Hemoglobin 14.1 g/dL (12.0-15.0); Lymphocyte % 10.8 % (19-41); Mean Corp Hgb Conc 31.6 g/dL (32-36); Mean Corpuscular Hgb 27.3 pg (27.0-32.0); Mean Corpuscular Volume 86.4 fL (81-99); Mean Platelet Vol. 12.7 fl (6.2-12.0); Monocyte# 0.95 X10^3/uL; Monocyte% 5.4 % (0-10); NRBC Flagged by Analyzer 0 % (0-5); Neutrophil # 14.12 X10^3/uL (2.7-7.7); Neutrophil % 79.8 % (47-70); Platelet Count 210 K/mm3 (150-450); RBC Distribution Width SD 44.4 fl (35.1-43.9); Red Blood Count 5.16 M/mm3 (4.2-5.4); White Blood Count 17.7 K/mm3 (4.4-11.0)
[2023-08-30 12:45] LABS: ALB/GLOB Ratio 0.9 RATIO (0.9-2.4); AST(SGOT) 12 U/L (15-37); Alanine Aminotransfer ALT/SGPT 17 U/L (13-56); Albumin, Serum 3.3 g/dL (3.2-5.0); Alkaline Phosphatase 72 U/L (45-117); Anion Gap 7 (5-15); BUN 18 mg/dL (7-18); BUN/Creat Ratio 15.9 RATIO (10-20); Chloride 103 mmol/L (98-107); Creatinine, Serum 1.13 mg/dL (0.55-1.02); EST Glomerular Filtration Rate 51 mL/min (>60); Est Glom Filt Rate - Afr Amer 61 mL/min (>60); Estimated Creatinine Clearance 37.16 ml/min; Globulin 3.7 g/dL (2.2-4.2); Glucose 163 mg/dL (74-106); Lipase 19 U/L (13-75); Sodium Level 137 mmol/L (136-145)
[2023-08-30 13:16] LABS: Mucous, Urine 0 SEEN /hpf (<or=2+); Red Blood Cells-Urine 0 SEEN /hpf (0-5)
[2023-08-30 13:17] LABS: Color, Urine Yellow (Yellow); Glucose, Dipstick Normal (Normal); Ketone-Dipstick Negative (Negative); Leukocyte Esterase-Dipstick 100 /ul (Negative); Nitrite-Dipstick Negative (Negative); Occult Blood-Urine 10 /ul (Negative); Protein-Dipstick 15 mg/dl (Negative); Specific Gravity, Urine 1.015 (1.002-1.030); Urine Bilirubin Dipstick Negative (Negative); Urine Clarity Clear (Clear); Urine Urobilinogen Normal (Normal); Urine pH 6.5 (5.0 - 8.0)
[2023-08-30 13:23] LABS: Bacteria RARE /hpf (None Seen); Squamous Epithelial Cells - UA 0-5 SEEN /hpf (5-10); White Blood Cells 5-10 SEEN /hpf (0-5)
--- NOTE | 2023-08-30 14:07 | PCM.HP.STD ---
HPI - General General Date of Admission: 08/30/23 Date of Service: 08/30/23 Chief Complaint: Abdominal pain, blood in stool HPI Narrative MARYJO HOLT, is a 68 F with history of hypertension who presented to [facility] ED on 08/30/2023 with blood in stool, abdominal pain, nausea/vomiting. Patient seen at bedside in the ED. Laying comfortably in bed, conversing normally, no acute distress. Patient does appear quite fatigued. States that she has seen small amount of blood in her stool over the past 3 days. States the blood has been darker red, not usually bright red. Denies any black stools. Has had worsening lower abdominal pain over that time. Has also had a few episodes of vomiting during that time as well. Has not been able to keep much food or drink down over the last few days. States the vomitus is basically clear fluids. She denies any fevers or chills at home. Does have a history of a hysterectomy, no other abdominal surgeries. Denies any dysuria or hematuria. No vaginal complaints. Patient lives at home with her son, has been able to do all things around the house for self without issue until last few days. She currently reports some mild abdominal pain, improved since admission. Has not had any bowel movement since admission. No vomiting since admission. Denies any fevers or chills. Denies any chest pain or shortness of breath. Denies any lightheadedness or dizziness. No other acute concerns. Vitals in ED notable for mild tachycardia and hypertension, otherwise unremarkable. Notable for WBC count of 17, hemoglobin 14.1, platelets 210, sodium 137, potassium 3.0, BUN 18, creatinine 1.13, lactate 0.9, magnesium 1.8, normal LFTs. UA was fairly benign. CT abdomen pelvis with IV contrast with multiple findings including diffuse circumferential wall thickening of the distal half of the transverse colon and left hemicolon down to the rectum with colitis, along with increased markings seen in the surrounding peritoneal fat; diffuse fatty infiltration of the liver; small left adrenal adenoma, stable from previous; 1 cm partially calcified splenic artery aneurysm. [facility] Medical History HTN (hypertension) Home Medications hydrochlorothiazide 25 mg tablet 25 mg PO DAILY SEE PCP 06/03/18 [History Last Taken Unknown] lisinopril 10 mg tablet 10 mg PO DAILY SEE PCP 06/03/18 [History Last Taken Unknown] metoprolol tartrate 50 mg tablet 50 mg PO BID SEE PCP 06/03/18 [History Last Taken Unknown] albuterol sulfate 90 mcg/actuation aerosol inhaler 1 - 2 puff inhalation Q4H PRN PRN Wheezing ##1 09/14/20 [Rx Last Taken Unknown] prednisone 20 mg tablet 60 mg (3 x 20 mg) PO DAILY SEE PCP #15 TABLETS 09/14/20 [Rx Last Taken Unknown] doxycycline monohydrate 100 mg capsule 100 mg PO BID SEE PCP #20 CAPSULES 03/14/21 [Rx Last Taken Unknown] prednisone 20 mg tablet 20 mg PO DAILY SEE PCP #4 tabs 03/14/21 [Rx Last Taken Unknown] aspirin 81 mg capsule 81 mg PO DAILY SEE PCP 08/30/23 [History Last Taken Unknown] atorvastatin 40 mg tablet 40 mg PO QHS SEE PCP 08/30/23 [History Last Taken Unknown] levothyroxine 50 mcg tablet 50 mcg PO DAILY SEE PCP 08/30/23 [History Last Taken Unknown] Allergy/AdvReac Type Severity Reaction Status Date / Time No Known Allergies Allergy Verified 08/30/23 11:45 Social History Smoking Status: Smoker, status unknown tobacco type: cigarettes ROS Constitutional Constitutional: Reports fatigue and weakness; Denies change in weight, chills or fever(s) Eyes Eyes: Denies change in vision Cardiovascular Cardiovascular: Denies chest pain, edema or lightheadedness Respiratory/Chest Respiratory/Chest: Denies cough Gastrointestinal Gastrointestinal: Reports abdominal pain, diarrhea, hematochezia, nausea and vomiting; Denies constipation or melena Genitourinary Genitourinary: Denies dysuria Musculoskeletal Musculoskeletal: Denies back pain Neurologic Neurologic: Reports dizziness and headache(s); Denies confusion or focal weakness Vital Signs Vital Signs Vital Signs: 08/30/23 11:45 08/30/23 13:46 Temperature 95.4 F L Temperature Source Temporal Pulse Rate 101 H 71 Respiratory Rate 18 18 Blood Pressure 124/97 H 131/81 H Blood Pressure Mean 106 97 Pulse Ox 100 93 Oxygen Delivery Method Room Air Weight Weight: 103.555 kg Body Mass Index (BMI) 41.7 Physical Exam Const alert and oriented x3 Constitutional Narrative: Pleasant elderly female, morbidly obese, laying comfortably in bed, conversing normally, no acute distress. Does appear moderately fatigued. General Appearance: cooperative, comfortable, well developed and uncooperative HEENT normocephalic, head/scalp atraumatic, hearing grossly normal bilaterally, nasal mucous membranes and turbinates normal and moist oral mucous membranes Eyes PERRL, EOMs intact bilaterally and conjunctivae normal Neck full ROM, no lymphadenopathy and supple Lymph Lymphatic: no lymphadenopathy noted Chest inspection of chest normal Resp normal respiratory effort, normal air movement, no use of accessory muscles and clear to auscultation bilaterally Cardio regular rate, regular rhythm, no murmurs and peripheral pulses 2+ throughout GI GI Narrative: Soft, mildly tender to palpation in bilateral lower quadrants, nondistended. Back/Spine normal ROM Extremity normal to inspection, full ROM and no pedal edema Skin no rashes or lesions noted Psych mental status grossly normal Results Lab / Micro Data 08/30/23 12:10 08/30/23 12:10 Labs: Laboratory Results - last 24 hr 08/30/23 12:10: WBC 17.7 H, RBC 5.16, Hgb 14.1, Hct 44.6, MCV 86.4, MCH 27.3, MCHC 31.6 L, RDW Std Deviation 44.4 H, RDW Coeff of Terrie 14.0, Plt Count 210, MPV 12.7 H, Immature Gran % (Auto) 0.700, Neut % (Auto) 79.8 H, Lymph % (Auto) 10.8 L, [place] % (Auto) 5.4, Eos % (Auto) 2.7, Baso % (Auto) 0.6, Absolute Neuts (auto) 14.1 H, Absolute Lymphs (auto) 1.90, Nucleated RBC % 0, Sodium 137, Potassium 3.0 L, Chloride 103, Carbon Dioxide 27.0, Anion Gap 7, BUN 18, Creatinine 1.13 H, Estim Creat Clear Calc 37.16, Est GFR (MDRD) Af Amer 61, Est GFR (MDRD) Non-Af 51 L, BUN/Creatinine Ratio 15.9, Glucose 163 H, Calcium 9.0, Total Bilirubin 1.00, AST 12 L, ALT 17, Alkaline Phosphatase 72, Total Protein 7.0, Albumin 3.3, Globulin 3.7, Albumin/Globulin Ratio 0.9, Lipase 19, Blood Type A POSITIVE, Antibody Screen NEGATIVE 08/30/23 13:10: Urine Color Yellow, Urine Clarity Clear, Urine pH 6.5, Ur Specific [place] 1.015, Urine Protein 15 H, Urine Glucose (UA) Normal, Urine Ketones Negative, Urine Occult Blood 10 H, Urine Nitrite Negative, Urine Bilirubin Negative, Urine Urobilinogen Normal, Ur Leukocyte Esterase 100 H, Urine RBC 0 SEEN, Urine WBC 5-10 SEEN, Ur Squamous Epith Cells 0-5 SEEN, Urine Bacteria RARE, Urine Mucus 0 SEEN Radiology Impression Abdomen/Pelvis CT 08/30/23 12:01 IMPRESSION: Colitis as described. Diffuse fatty infiltration of the liver. 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 Small left adrenal adenoma. Electronically Signed: Kenny Bonilla MD at 13:54 EDT , Assessment & Plan Assessment/Plan (1) Colitis: PLAN: Plan Patient is a 68-year-old female with history of hypertension who presented to [facility] ED on 08/30/2023 with blood in stool, abdominal pain, nausea/vomiting. 1. Colitis CT abdomen pelvis with IV contrast showed diffuse circumferential wall thickening of the distal half of the transverse colon and left hemicolon down to the rectum with colitis, along with increased markings seen in the surrounding peritoneal fat. Most likely etiologies are infectious versus inflammatory. Mildly tachycardic and hypertensive on admission, WBC count of 17, hemoglobin stable at baseline. ? Admit under inpatient status to [facility]. ED physician spoke with Dr. Bro with gastroenterology, who recommended full lab work-up for inflammatory versus infectious etiology of colitis. Labs are pending, follow-up. Treat with IV Zosyn for now. Formal GI consult placed. Follow-up a.m. CBC. Received 1 L of saline in the ED, will start LR 75 ml/hr for maintenance IV fluids until patient's p.o. intake improves. Okay for regular diet at this time. 2. Mild hypokalemia ? Suspect secondary to GI losses from vomiting and diarrhea. Potassium 3.0 on admit. Replete as needed. 3. Incidental small adrenal mass, stable ? CT abdomen pelvis showed a small left adrenal adenoma measuring 2.2 cm, consistent with an adrenal adenoma, essentially unchanged in comparison to prior CT abdomen pelvis from 2012. Consider further outpatient work-up as needed. Chronic medical conditions: ? Morbid obesity, fatty liver disease: BMI 41. CT abdomen pelvis showed liver steatosis. LFTs normal. Encouraged lifestyle modifications. ? Hypertension: Continue home hydrochlorothiazide, hold home lisinopril in setting of mildly increased creatinine from suspected hypovolemia, restart as able. DVT prophylaxis: Lovenox twice daily CODE STATUS: Full code, verified Expected disposition: Home, 2 to 3 days Total clinical time spent by myself addressing the patient's medical issues, reviewing all the data, and collaborating with patient's care team: 55 minutes. Charges/Coding Visit Charges Inpatient E&M: 07480 Init Hosp L2
[2023-08-30 14:37] LABS: Erythrocyte Sedimentation Rate 27 mm/hr (0-30)
[2023-08-30 14:44] LABS: LDH 77 U/L (84-246)
[2023-08-30] MEDS: Piperacil/Tazobactam 3.375 GM in 0.9% Normal Saline (50mL MB+) 50 ML IV ×2 (14:45→22:30)
[2023-08-30] MEDS: Potassium Chloride Oral Soln 20 MEQ/15 ML UDC 40 MEQ PO (14:45)
[2023-08-30 14:56] LABS: Magnesium 1.8 mg/dL (1.6-2.6)
--- NOTE | 2023-08-30 14:59 | ED.RN ---
THIS RN ASKED JAVY [facility] [employer]AIL[employer] TO COMPLETE PT MEDICATION RECONCILIATION. PER JAVY, HE WILL COMPLETE ON FLOOR WHEN PT IS ADMITTED. THIS RN COMPLETED MED REC TO BEST OF PT VERBAL KNOWLEDGE. PARTIALLY COMPLETE.
[2023-08-30 15:38] LABS: Lactic Acid 0.9 mmol/L (0.4-1.9)
[2023-08-30] MEDS: Acetaminophen 325 MG Tablet 650 MG PO (16:09)
[2023-08-30] MEDS: 0.9% Normal Saline (1000mL) 1,000 ML 75 ML IV (17:22)
[2023-08-30] MEDS: Ondansetron 4 MG/2 ML Vial IV (17:38)
--- NOTE | 2023-08-30 18:47 | EX.PCM.CON.G ---
HPI Consult Data Date of Consult: 08/30/23 HPI Narrative Reason for Consultation: nausea, vomiting and colitis HPI Narrative: MARYJO HOLT, is a 68-year-old female presenting for evaluation of blood in her stool x3 days. States she only has it when she has a bowel movement but she is not passing stool. She only has blood coming out of her rectum. She states that she did not try a laxative or stool softener even though she has not had a bowel movement 3 days. She states she took some Pepto-Bismol which did not help the abdominal pain or stop the bleeding. She has had some vomiting as well states she vomited for the last couple of days. She states it is sporadic. She states her vomit is basically clear fluids. No fever at home. Her only abdominal surgery was a hysterectomy. No urinary, vaginal complaints. She complains of lower abdominal pain in the right lower quadrant in the left lower quadrant. WBC 17.7 H, Hgb 14.1, Plt Count 210 Ct scan of the Abdomen and Pelvis: Severe Pancolitis Diffuse fatty infiltration of the liver. 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 Small left adrenal adenoma. [facility] Medical History HTN (hypertension) Home Medications hydrochlorothiazide 25 mg tablet 25 mg PO DAILY SEE PCP 06/03/18 [History Last Taken Unknown] lisinopril 10 mg tablet 10 mg PO DAILY SEE PCP 06/03/18 [History Last Taken Unknown] metoprolol tartrate 50 mg tablet 50 mg PO BID SEE PCP 06/03/18 [History Last Taken Unknown] albuterol sulfate 90 mcg/actuation aerosol inhaler 1 - 2 puff inhalation Q4H PRN PRN Wheezing ##1 09/14/20 [Rx Last Taken Unknown] prednisone 20 mg tablet 60 mg (3 x 20 mg) PO DAILY SEE PCP #15 TABLETS 09/14/20 [Rx Last Taken Unknown] doxycycline monohydrate 100 mg capsule 100 mg PO BID SEE PCP #20 CAPSULES 03/14/21 [Rx Last Taken Unknown] prednisone 20 mg tablet 20 mg PO DAILY SEE PCP #4 tabs 03/14/21 [Rx Last Taken Unknown] aspirin 81 mg capsule 81 mg PO DAILY SEE PCP 08/30/23 [History Last Taken Unknown] atorvastatin 40 mg tablet 40 mg PO QHS SEE PCP 08/30/23 [History Last Taken Unknown] levothyroxine 50 mcg tablet 50 mcg PO DAILY SEE PCP 08/30/23 [History Last Taken Unknown] Allergy/AdvReac Type Severity Reaction Status Date / Time No Known Allergies Allergy Verified 08/30/23 11:45 Social History Smoking Status: Smoker, status unknown tobacco type: cigarettes ROS Constitutional Constitutional: Reports fatigue and weakness; Denies change in weight, chills or fever(s) Eyes Eyes: Denies change in vision Cardiovascular Cardiovascular: Denies chest pain, edema or lightheadedness Respiratory/Chest Respiratory/Chest: Denies cough Gastrointestinal Gastrointestinal: Reports abdominal pain, diarrhea, hematochezia, nausea and vomiting; Denies constipation or melena Genitourinary Genitourinary: Denies dysuria Musculoskeletal Musculoskeletal: Denies back pain Neurologic Neurologic: Reports dizziness and headache(s); Denies confusion or focal weakness Physical Exam Const alert and oriented x3 General Appearance: cooperative, comfortable, well developed and uncooperative HEENT normocephalic, head/scalp atraumatic, hearing grossly normal bilaterally, nasal mucous membranes and turbinates normal and moist oral mucous membranes Eyes PERRL, EOMs intact bilaterally and conjunctivae normal Neck full ROM, no lymphadenopathy and supple Lymph Lymphatic: no lymphadenopathy noted Chest inspection of chest normal Resp normal respiratory effort, normal air movement, no use of accessory muscles and clear to auscultation bilaterally Cardio regular rate, regular rhythm, no murmurs and peripheral pulses 2+ throughout GI GI Narrative: Soft, mildly tender to palpation in bilateral lower quadrants, nondistended. Back/Spine normal ROM Extremity normal to inspection, full ROM and no pedal edema Skin no rashes or lesions noted Psych mental status grossly normal Lab / Micro Data 08/30/23 12:10 08/30/23 12:10 Labs: Laboratory Results - last 24 hr 08/30/23 12:10: WBC 17.7 H, RBC 5.16, Hgb 14.1, Hct 44.6, MCV 86.4, MCH 27.3, MCHC 31.6 L, RDW Std Deviation 44.4 H, RDW Coeff of Terrie 14.0, Plt Count 210, MPV 12.7 H, Immature Gran % (Auto) 0.700, Neut % (Auto) 79.8 H, Lymph % (Auto) 10.8 L, [place] % (Auto) 5.4, Eos % (Auto) 2.7, Baso % (Auto) 0.6, Absolute Neuts (auto) 14.1 H, Absolute Lymphs (auto) 1.90, Nucleated RBC % 0, ESR 27, Sodium 137, Potassium 3.0 L, Chloride 103, Carbon Dioxide 27.0, Anion Gap 7, BUN 18, Creatinine 1.13 H, Estim Creat Clear Calc 37.16, Est GFR (MDRD) Af Amer 61, Est GFR (MDRD) Non-Af 51 L, BUN/Creatinine Ratio 15.9, Glucose 163 H, Calcium 9.0, Magnesium 1.8, Total Bilirubin 1.00, AST 12 L, ALT 17, Alkaline Phosphatase 72, Lactate Dehydrogenase 77 L, C-React Prot Ext Range 54.70 H, Total Protein 7.0, Albumin 3.3, Globulin 3.7, Albumin/Globulin Ratio 0.9, Lipase 19, Blood Type A POSITIVE, Antibody Screen NEGATIVE 08/30/23 13:10: Urine Color Yellow, Urine Clarity Clear, Urine pH 6.5, Ur Specific Bagley 1.015, Urine Protein 15 H, Urine Glucose (UA) Normal, Urine Ketones Negative, Urine Occult Blood 10 H, Urine Nitrite Negative, Urine Bilirubin Negative, Urine Urobilinogen Normal, Ur Leukocyte Esterase 100 H, Urine RBC 0 SEEN, Urine WBC 5-10 SEEN, Ur Squamous Epith Cells 0-5 SEEN, Urine Bacteria RARE, Urine Mucus 0 SEEN 08/30/23 14:34: Lactic Acid 0.9 Micro: Microbiology 08/30/23 17:30 Stool Stool Lactoferrin - Final Radiology Impression Abdomen/Pelvis CT 08/30/23 12:01 IMPRESSION: Colitis as described. Diffuse fatty infiltration of the liver. 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 Small left adrenal adenoma. Electronically Signed: Kenny Bonilla MD at 13:54 EDT , Assessment & Plan Assessment/Plan (1) Colitis: PLAN: Plan Patient is a 68-year-old female with history of hypertension who presented to [facility] ED on 08/30/2023 with blood in stool, abdominal pain, nausea/vomiting. CT abdomen pelvis with IV contrast showed diffuse circumferential wall thickening of the distal half of the transverse colon and left hemicolon down to the rectum with colitis, along with increased markings seen in the surrounding peritoneal fat. The differential diagnosis for her abdominal pain associated with inflammation and lower GI bleeding and CT scan that shows diffuse bowel wall thickening is peñaloza ulcerative colitis, ischemic colitis, infectious colitis. Who I am okay with antibiotics at this time. She should get stool testing for enteric pathogens and C. difficile colitis. She should undergo an upper and lower endoscopy to evaluate her upper lower GI tract. She was explained alternatives, risk, benefits include not withstanding bleeding, infection, sepsis, perforation, need for emergent surgery . She will have an ASA of 2. Charges/Coding Visit Charges Inpatient E&M: 18170 Init Hosp L3
[2023-08-30] MEDS: Bisacodyl 5 MG Tablet 20 MG PO (19:56)
[2023-08-30] MEDS: Polyethylene Glycol 3350 BOWEL PREP PO (21:49)
[2023-08-30] MEDS: 0.9% Normal Saline (250mL Bag) 250 ML 15 ML IV (22:30)
[2023-08-30] MEDS: Ketorolac 30 MG/ML Syringe 15 MG IV (23:54)
[2023-08-30] MEDS: 0.9% Saline Lock 10 ML Syringe IV (23:55)
[2023-08-31] VITALS (10 sets, daily range): BP systolic 79–118; BP diastolic 53–78; PULSE 57–90; RESP 16–18; TEMP 36.6–37.1; O2SAT 91–96
--- NOTE | 2023-08-31 | COLBX_PTH ---
PATIENT: MARYJO HOLT LOC: MS3 U#:[id number] AGE/SX: 68/F ROOM: NC317 RE08/30/[address]: Dr. Keny Kang DO : 1955 BED: 1 DIS: 09/01/2023 SPEC #: [id number] RECD: 08/31/23 12:29 STATUS: MOISÉS MCGARRYArti #: [id number] CHRISTI: 08/31/23 00:[address]: Hector Bro DEPT: SURGICAL PATHOLOGY RECD BY: Radha Villegas ENTERED: 08/31/23 13:10 SP TYPE: COLON BX OTHR DR: DO Dr. Rufino Rossi MD Dr. Mark Tereletsky, DO Tissues: A - Gastric mucous membrane B - COLON BIOPSY C - COLON BIOPSY D - Rectum, NOS Procedures: Surgery Specimen Level IV HEADER OPERATION: Colonoscopy with polyp biopsy, EGD with biopsy PRE-OP DIAGNOSIS: Colitis, GI bleed TISSUE SUBMITTED: A - Gastric antrum ulcer, B - Polyp biopsy hepatic flexure, C - Random ischemic colitis biopsy, D - Rectal biopsy MICROSCOPIC DIAGNOSIS A. Gastric antral ulcer, biopsy: Ulceration with associated acute and chronic inflammation and granulation. B. Colonic polyp at hepatic flexure, biopsy: Fragments of hyperplastic polyp. C. Ischemic colon, biopsy: Ischemic colitis with ulceration and associated fibrinopurulent exudate. D. Rectum, biopsy: Focal hyperplastic change. AM:ángela 09/01/2023 COMMENT A. The results of immunohistochemistry for Helicobacter pylori will be reported separately ([id number]). MICROSCOPIC DESCRIPTION Slides are reviewed. GROSS DESCRIPTION A - Received in fixative is one container labeled with the patient's name and designated gastric antrum. The specimen consists of multiple irregular fragments of light brooke soft tissue that in aggregate measure 0.6 x 0.6 x 0.1 cm. The specimen is totally submitted in one cassette. B - Received in fixative is one container labeled with the patient's name and designated hepatic flexure polyp. The specimen consists of multiple irregular fragments of light brooke soft tissue that in aggregate measure 0.7 x 0.5 x 0.1 cm. The specimen is totally submitted in one cassette. C - Received in fixative is one container labeled with the patient's name and designated random ischemic colitis. The specimen consists of multiple irregular fragments of light brooke soft tissue that in aggregate measure 1.5 x 0.5 x 0.1 cm. The specimen is totally submitted in one cassette. D - Received in fixative is one container labeled with the patient's name and designated rectal biopsy. The specimen consists of one irregular fragment of light brooke soft tissue that measures 0.3 x 0.3 x 0.1 cm. The specimen is totally submitted in one cassette. / AM:ángela 08/31/2023 TC:2 CPT: 91676 x4
[2023-08-31] MEDS: Piperacil/Tazobactam 3.375 GM in 0.9% Normal Saline (50mL MB+) 50 ML IV ×3 (05:56→21:13)
[2023-08-31] MEDS: 0.9% Normal Saline (1000mL) 1,000 ML 75 ML IV ×2 (05:56→20:31)
[2023-08-31 06:33] LABS: Hematocrit 39.6 % (37-47); Hemoglobin 12.3 g/dL (12.0-15.0); Mean Corp Hgb Conc 31.1 g/dL (32-36); Mean Corpuscular Hgb 27.8 pg (27.0-32.0); Mean Corpuscular Volume 89.6 fL (81-99); Mean Platelet Vol. 12.3 fl (6.2-12.0); Platelet Count 147 K/mm3 (150-450); RBC Distribution Width SD 45.8 fl (35.1-43.9); Red Blood Count 4.42 M/mm3 (4.2-5.4)
[2023-08-31 06:52] LABS: International Normalized Ratio 1.1; Partial Thromboplast Time 29.4 Seconds (24.1-36.2); Prothrombin Time (Protime)PT. 14.3 SECONDS (11.7-14.9)
[2023-08-31] MEDS: Ketorolac 30 MG/ML Syringe 15 MG IV (06:57)
[2023-08-31] MEDS: 0.9% Saline Lock 10 ML Syringe IV (06:57)
[2023-08-31 07:17] LABS: Anion Gap 4 (5-15); BUN 13 mg/dL (7-18); BUN/Creat Ratio 12.1 RATIO (10-20); Calcium,Total 8.3 mg/dL (8.5-10.1); Chloride 108 mmol/L (98-107); Creatinine, Serum 1.07 mg/dL (0.55-1.02); EST Glomerular Filtration Rate 54 mL/min (>60); Est Glom Filt Rate - Afr Amer 65 mL/min (>60); Estimated Creatinine Clearance 39.25 ml/min; Glucose 111 mg/dL (74-106); Potassium 3.8 mmol/L (3.5-5.1); Sodium Level 140 mmol/L (136-145)
[2023-08-31] MEDS: Lactated Ringers 1,000 ML 15 ML IV (10:04)
--- NOTE | 2023-08-31 10:45 | IMM_PTH ---
PATIENT: MARYJO HOLT LOC: MS3 U#:[id number] AGE/SX: 68/F ROOM: AK317 RE08/30/[address]: Dr. Keny Kang DO : 1955 BED: 1 DIS: 09/01/2023 SPEC #: [id number] RECD: 08/31/23 13:34 STATUS: MOISÉS REArti #: [id number] CHRISTI: 08/31/23 10:[address]: Hector Bro DEPT: IMMUNOHISTOCHEMISTRY RECD BY: Anabelle Navarrete ENTERED: 08/31/23 13:35 SP TYPE: IMMUNO OTHR DR: DO Dr. Rufino Rossi MD Dr. Mark Tereletsky, DO Tissues: A - Stomach, NOS Procedures: H Pylori (initial) PHYSICIAN & INSTITUTION [place] [id number] SPECIMEN INFORMATION: Tissue Source: A - Gastric antrum ulcer Clinical Info: Colitis, GI bleed Specimen Number: [id number] CPT code: 72811 METHODOLOGY: Deparaffinized sections of prefer/formalin-fixed tissue or PAP/DQ stained slides are incubated with monoclonal/polyclonal antibodies/oligonucleotide probes. Localization is made via biotin free immunoperoxidase method. Appropriate controls are performed and reacted as expected. Results on target cell population are indicated in the following table: RESULTS: ANTIBODY / CLONE RESULT Block A H Pylori (polyclonal) negative These tests were developed and their performance characteristics determined by [facility]. They may not have been cleared or approved by the U.S. Food and Drug Administration. The FDA has determined that such clearance or approval is not necessary. The above immunohistochemical/dualISH markers are ordered and reviewed by the Pathologist. INTERPRETATION: A. Gastric antrum ulcer, biopsy: Negative for Helicobacter pylori organisms. AM:ángela 09/01/2023
--- NOTE | 2023-08-31 11:28 | OP.EGD_ITS ---
Patient Name: Anastasia Bui Procedure Date: 08/31/2023 10:54 AM Date of : 1955 Age: 68 Procedure: Upper GI endoscopy Indications: Epigastric abdominal pain, Melena Providers: Hector Bro DO Medicines: Monitored Anesthesia Care Patient Profile: This is a 68 year old female. Refer to note in patient chart for documentation of history and physical. Patient has symptoms of acute abdominal cramping, acute abdominal distention and acute global abdominal pain. Complications: No immediate complications. Procedure: Pre-Anesthesia Assessment: - Prior to the procedure, a History and Physical was performed, and patient medications and allergies were reviewed. The risks and benefits of the procedure and the sedation options and risks were discussed with the patient. All questions were answered and informed consent was obtained. Patient identification and proposed procedure were verified by the physician in the pre-procedure area. Mental Status Examination: alert and oriented. Airway Examination: normal oropharyngeal airway and neck mobility. Respiratory Examination: clear to auscultation. CV Examination: normal. Prophylactic Antibiotics: The patient does not require prophylactic antibiotics. Prior Anticoagulants: The patient has taken no anticoagulant or antiplatelet agents. ASA Grade Assessment: II - A patient with mild systemic disease. After reviewing the risks and benefits, the patient was deemed in satisfactory condition to undergo the procedure. The anesthesia plan was to use monitored anesthesia care (MAC). Immediately prior to administration of medications, the patient was re-assessed for adequacy to receive sedatives. The heart rate, respiratory rate, oxygen saturations, blood pressure, adequacy of pulmonary ventilation, and response to care were monitored throughout the procedure. The physical status of the patient was re-assessed after the procedure. After obtaining informed consent, the endoscope was passed under direct vision. Throughout the procedure, the patient's blood pressure, pulse, and oxygen saturations were monitored continuously. The Colonoscope was introduced through the mouth, and advanced to the second part of duodenum. The upper GI endoscopy was accomplished without difficulty. The patient tolerated the procedure well. Scope In: 11:04:24 AM Scope Out: 11:07:40 AM Total Procedure Duration Time 0 hours 3 minutes 16 seconds Findings: LA Grade B (one or more mucosal breaks greater than 5 mm, not extending between the tops of two mucosal folds) esophagitis with no bleeding was found 36 to 37 cm from the incisors. Biopsies were taken with a cold forceps for histology. Many oozing cratered gastric ulcers with pigmented material were found in the gastric antrum. The largest lesion was 8 mm in largest dimension. Area was successfully injected with 9 mL of a 0.1 mg/mL solution of epinephrine for drug delivery. Estimated blood loss was minimal. One oozing cratered gastric ulcer with a visible vessel was found in the gastric body. The lesion was 5 mm in largest dimension. Coagulation for hemostasis using heater probe was successful. Estimated blood loss was minimal. Few non-bleeding linear duodenal ulcers with no stigmata of bleeding were found in the duodenal bulb, in the first portion of the duodenum and in the second portion of the duodenum. The largest lesion was 3 mm in largest dimension. Impression: - LA Grade B erosive esophagitis with no bleeding. Biopsied. - Oozing gastric ulcers with pigmented material. Injected. - Oozing gastric ulcer with a visible vessel. Treated with a heater probe. - Non-bleeding duodenal ulcers with no stigmata of bleeding. Recommendation: - [facility] care. - Use Protonix (pantoprazole) 40 mg PO BID for 4 months. - Full liquid diet. - Use sucralfate tablets 1 gram PO QID. - No aspirin, ibuprofen, naproxen, or other non-steroidal anti-inflammatory drugs for 12 weeks. Procedure Code(s): --- Professional --- 65460, 59, Esophagogastroduodenoscopy, flexible, transoral; with control of bleeding, any method 40197, Esophagogastroduodenoscopy, flexible, transoral; with biopsy, single or multiple 21554, 59,51, Esophagogastroduodenoscopy, flexible, transoral; with directed submucosal injection(s), any substance CPT copyright 202 [employer]. All rights reserved. The codes documented in this report are preliminary and upon supervisor pyrotechnic loading review may be revised to meet current compliance requirements. Hector Bro DO 08/31/2023 11:26:48 AM This report has been signed electronically. Number of Addenda: 0 Note Initiated On: 08/31/2023 10:54 AM
--- NOTE | 2023-08-31 11:28 | OP.CCLET_ITS ---
08/31/2023 Rufino Jernigan Re : Upper GI endoscopy procedure for Anastasia Bui Natalier Rere This procedure was performed on Thursday, August 31, 2023. My impressions and recommendations are as follows: Impressions : - LA Grade B erosive esophagitis with no bleeding. Biopsied. - Oozing gastric ulcers with pigmented material. Injected. - Oozing gastric ulcer with a visible vessel. Treated with a heater probe. - Non-bleeding duodenal ulcers with no stigmata of bleeding. Recommendations : - Return patient to [facility] for [facility] care. - Use Protonix (pantoprazole) 40 mg PO BID for 4 months. - Full liquid diet. - Use sucralfate tablets 1 gram PO QID. - No aspirin, ibuprofen, naproxen, or other non-steroidal anti-inflammatory drugs for 12 weeks. My findings are described in the full procedure note, which is enclosed. If I can be of further assistance, please feel free to contact me at . Sincerely, Hector Bro, 08/31/2023 11:26:48 AM This report has been signed electronically.
--- NOTE | 2023-08-31 11:30 | OP.COLON_ITS ---
Patient Name: Anastasia Bui Procedure Date: 08/31/2023 11:07 AM Date of : 1955 Age: 68 Procedure: Colonoscopy Indications: Hematochezia Providers: Hector Bro DO Medicines: Monitored Anesthesia Care Patient Profile: This is a 68 year old female. Refer to note in patient chart for documentation of history and physical. Patient has symptoms of acute abdominal cramping, acute abdominal distention and acute global abdominal pain. Last Colonoscopy: date unknown. Unable to locate last colonoscopy report. Complications: No immediate complications. Procedure: Pre-Anesthesia Assessment: - Prior to the procedure, a History and Physical was performed, and patient medications and allergies were reviewed. The risks and benefits of the procedure and the sedation options and risks were discussed with the patient. All questions were answered and informed consent was obtained. Patient identification and proposed procedure were verified by the physician in the pre-procedure area. Mental Status Examination: alert and oriented. Airway Examination: normal oropharyngeal airway and neck mobility. Respiratory Examination: clear to auscultation. CV Examination: normal. Prophylactic Antibiotics: The patient does not require prophylactic antibiotics. Prior Anticoagulants: The patient has taken no anticoagulant or antiplatelet agents. ASA Grade Assessment: II - A patient with mild systemic disease. After reviewing the risks and benefits, the patient was deemed in satisfactory condition to undergo the procedure. The anesthesia plan was to use monitored anesthesia care (MAC). Immediately prior to administration of medications, the patient was re-assessed for adequacy to receive sedatives. The heart rate, respiratory rate, oxygen saturations, blood pressure, adequacy of pulmonary ventilation, and response to care were monitored throughout the procedure. The physical status of the patient was re-assessed after the procedure. After I obtained informed consent, the scope was passed under direct vision. Throughout the procedure, the patient's blood pressure, pulse, and oxygen saturations were monitored continuously. The Colonoscope was introduced through the anus and advanced to the cecum, identified by appendiceal orifice and ileocecal valve. The colonoscopy was performed without difficulty. The patient tolerated the procedure well. The quality of the bowel preparation was fair. The ileocecal valve, appendiceal orifice, and rectum were photographed. Scope In: 11:09:50 AM Scope Withdrawal Time 0 hours 5 minutes 8 seconds Scope Out: 11:18:10 AM Total Procedure Duration Time 0 hours 8 minutes 20 seconds Findings: The perianal and digital rectal examinations were normal. Multiple small and large-mouthed diverticula were found in the recto-sigmoid colon and sigmoid colon. Scattered severe inflammation characterized by erosions, erythema, friability, granularity and deep ulcerations was found in the sigmoid colon, in the descending colon, at the splenic flexure, in the transverse colon and at the hepatic flexure. Biopsies were taken with a cold forceps for histology. Verification of patient identification for the specimen was done. Estimated blood loss was minimal. An 8 mm polyp was found in the hepatic flexure. The polyp was sessile. The polyp was removed with a cold snare. Resection and retrieval were complete. Verification of patient identification for the specimen was done. Estimated blood loss was minimal. Stool was found in the recto-sigmoid colon, in the sigmoid colon, at the hepatic flexure, in the ascending colon and in the cecum. Impression: - Preparation of the colon was fair. - Diverticulosis in the recto-sigmoid colon and in the sigmoid colon. - Scattered severe inflammation was found in the sigmoid colon, in the descending colon, at the splenic flexure, in the transverse colon and at the hepatic flexure secondary to ischemic colitis. Biopsied. - One 8 mm polyp at the hepatic flexure, removed with a cold snare. Resected and retrieved. - Stool in the recto-sigmoid colon, in the sigmoid colon, at the hepatic flexure, in the ascending colon and in the cecum. Recommendation: - Return patient to [facility] for ongoing care. - Full liquid diet. - Continue present medications. -Repeat colonoscopy in approximately 3-4 months - Repeat colonoscopy in 4 months to assess disease activity. Procedure Code(s): --- Professional --- 83258, Colonoscopy, flexible; with removal of tumor(s), polyp(s), or other lesion(s) by snare technique 11829, 59, Colonoscopy, flexible; with biopsy, single or multiple CPT copyright 2021 [place] [employer]. All rights reserved. The codes documented in this report are preliminary and upon ironer sock review may be revised to meet current compliance requirements. Hector Bro DO 08/31/2023 11:30:21 AM This report has been signed electronically. Number of Addenda: 0 Note Initiated On: 08/31/2023 11:07 AM
--- NOTE | 2023-08-31 11:31 | OP.CCLET_ITS ---
08/31/2023 Rufino Jernigan Re : Colonoscopy procedure for Anastasia Bui Phillip Jernigan This procedure was performed on Thursday, August 31, 2023. My impressions and recommendations are as follows: Impressions : - Preparation of the colon was fair. - Diverticulosis in the recto-sigmoid colon and in the sigmoid colon. - Scattered severe inflammation was found in the sigmoid colon, in the descending colon, at the splenic flexure, in the transverse colon and at the hepatic flexure secondary to ischemic colitis. Biopsied. - One 8 mm polyp at the hepatic flexure, removed with a cold snare. Resected and retrieved. - Stool in the recto-sigmoid colon, in the sigmoid colon, at the hepatic flexure, in the ascending colon and in the cecum. Recommendations : - Return patient to [facility] for ongoing care. - Full liquid diet. - Continue present medications. -Repeat colonoscopy in approximately 3-4 months - Repeat colonoscopy in 4 months to assess disease activity. My findings are described in the full procedure note, which is enclosed. If I can be of further assistance, please feel free to contact me at . Sincerely, Hector Bro, 08/31/2023 11:30:21 AM This report has been signed electronically.
[2023-08-31] MEDS: Docusate Sodium 100 MG Capsule PO (12:26)
--- NOTE | 2023-08-31 13:15 | CASEMGMT ---
CELESTINA NAGY Assessment: Face to Face with pt for initial transition planning/care coordination assessment. RN LILO introduced self and role at [facility], pt voices understanding and consents to assessment. Pt is A&O x4 and answers all questions appropriately at this time. Pt lying in bed in no distress with oxygen on. Care providers, pharmacy, and demographics verified/updated. Admitting Dx: colitis PCP:Rere Specialists:Pt denies Preferred Pharmacy:[facility] Insurance: [employer] Prescription Benefit: yes LNOK: Lance Bui, son Living Arrangements: Pt lives with son in a two story home with a couple of steps to enter with a rail. Pt reports she is I in ADL's and denies concerns at home. Transportation: Pt drives self and denies concerns with transportation. DME:None HHC/SNF: Pt denies hx of. Pt states no concerns with going home at time of dc. Pt states no further concerns/needs. CM to follow. Advised pt to ask CM if any further question/concerns/needs arise, voices understanding. Pt Goal: Home Plan: Home
[2023-08-31] MEDS: Dicyclomine 10 MG Capsule 20 MG PO (15:36)
[2023-08-31] MEDS: Sucralfate 1 GM Tablet PO (15:36)
--- NOTE | 2023-08-31 15:40 | CHAPLAIN ---
Type of Pastoral Visit _x__ Initial Visit ___ Follow-up Visit ___ On-call Visit ___ General Patient Visit ___ Spiritual Assessment ___ Family Conference ___ Bereavement ___ Rapid Response ___ Code Blue ___ Other (describe below) Pastoral Care Referral From _x__ Patient ___ Family ___ Nurse ___ Physician ___ Hot Dip Plating Supervisor ___ Research Dairy Farm Supervisor ___ Other (describe below) Sacrament/Intervention _x__ Active listening ___ Anointing ___ Zoroastrian ___ Bereavement ___ Communion ___ [place] exploration ___ ___ Life review _x__ Prayer ___ Reconciliation ___ Sacrament of Sick ___ Supportive presence ___ Wedding ___ Other (describe below) Pastoral Comments patient states she is waiting on answers and the decision to go home; pt reports no special concerns or needs but believes in prayer and welcomes that for her support
--- NOTE | 2023-08-31 17:29 | PCM.PN.HOSP ---
Reason for Visit Reason for Visit: Diagnoses Noninfective gastroenteritis and colitis, unspecified (08/30/23) Subjective Subjective Patient was seen and examined today, she underwent a colonoscopy today which revealed evidence of ischemic colitis. It was recommended that the patient be kept on a clear liquid diet. Patient's EGD today revealed duodenal ulcers, gastric ulcers, and esophagitis. Objective Data Objective Data Vital Signs: Vital Signs Temp Pulse Resp BP Pulse Ox O2 Del Method O2 Flow Rate 98 F 80 18 118/78 95 Room Air 2 08/31/23 15:37 08/31/23 15:37 08/31/23 15:37 08/31/23 15:37 08/31/23 15:37 08/31/23 15:37 08/31/23 11:40 Oxygen Flow Rate (L/min) 2 Oxygen Delivery Method Room Air Weight: 101.605 kg Body Mass Index (BMI) 40.9 Intake & Output: Intake and Output for Last 24 Hours 08/29/23 08/30/23 08/31/23 23:59 23:59 23:59 Intake Total 3501 / 3501 1363.50 / 1363.50 Output Total 150 / 150 Balance 3351 / 3351 1363.50 / 1363.50 Lab / Micro Data 08/31/23 06:05 08/31/23 06:05 Labs: Laboratory Results - last 24 hr 08/31/23 06:05: WBC 16.0 H, RBC 4.42, Hgb 12.3, Hct 39.6, MCV 89.6, MCH 27.8, MCHC 31.1 L, RDW Std Deviation 45.8 H, RDW Coeff of Terrie 14.0, Plt Count 147 L, MPV 12.3 H, PT 14.3, INR 1.1, APTT 29.4, Sodium 140, Potassium 3.8, Chloride 108 H, Carbon Dioxide 28.0, Anion Gap 4 L, BUN 13, Creatinine 1.07 H, Estim Creat Clear Calc 39.25, Est GFR (MDRD) Af Amer 65, Est GFR (MDRD) Non-Af 54 L, BUN/Creatinine Ratio 12.1, Glucose 111 H, Calcium 8.3 L Micro: Microbiology 08/30/23 17:30 Stool Stool Lactoferrin - Final 08/30/23 17:30 Stool Enteric Bacteriology - Final 08/30/23 17:30 Stool C. difficile DNA Amplification - Final Physical Exam Const alert, oriented x3 and no apparent distress Constitutional Narrative: Patient is morbidly obese General Appearance: cooperative, well kempt and well developed Orientation / Consciousness: awake, oriented to person, oriented to place and oriented to time HEENT normocephalic, head/scalp atraumatic and moist oral mucous membranes Eyes PERRL, EOMs intact bilaterally and conjunctivae normal Neck supple, no JVD, thyroid normal and no carotid bruits General: trachea midline Resp normal respiratory effort, no retractions, no use of accessory muscles and clear to auscultation bilaterally Auscultation: Negative for rales, rhonchi or wheezes Cardio regular rate, regular rhythm, S1 normal heart sound, S2 normal heart sound, no murmurs, no rub and no gallops GI normal to inspection, nondistended, normoactive bowel sounds, soft to palpation, non-tender and non-distended Extremity no clubbing, cyanosis or edema Skin no rashes or lesions noted General Skin Exam: no breakdown Neuro oriented x3, CN's II-XII intact bilaterally, moves all extremities, no focal motor deficits and no sensory deficits noted Sensorium / Orientation: awake and alert Speech: speech normal Psych affect normal Assessment & Plan Assessment/Plan (1) Colitis: PLAN: Plan 1. Ischemic colitis-patient will remain on IV antibiotics at this time and a clear liquid diet, she will be reevaluated tomorrow #2 essential hypertension-patient is on metoprolol, lisinopril, and hydrochlorothiazide #3 hypothyroidism-patient is on Synthroid #4 multiple gastric ulcers-these were injected during her EGD today and a heater probe was used on some of these areas, patient is currently on Carafate and Protonix #5 duodenal ulcers-again patient is on Protonix and Carafate #6 esophagitis-again patient is on Protonix Total clinical time spent by myself addressing the patient's medical issues, reviewing all of her data, and collaborating with patient's care team: 35 minutes Charges/Coding Visit Charges Inpatient E&M: 80333 Subs Hosp L2
[2023-08-31] MEDS: Enoxaparin 40 MG/0.4 ML Syringe SC (21:12)
[2023-09-01] MEDS: Piperacil/Tazobactam 3.375 GM in 0.9% Normal Saline (50mL MB+) 50 ML IV (05:37)
[2023-09-01 05:39] VITALS: BP 100/69; PULSE 58; RESP 18; TEMP 36.5; O2SAT 93
[2023-09-01] MEDS: Dicyclomine 10 MG Capsule 20 MG PO (05:43)
[2023-09-01] MEDS: Sucralfate 1 GM Tablet PO (06:58)
[2023-09-01 07:22] VITALS: O2SAT 95
[2023-09-01 08:01] VITALS: BP 114/56; PULSE 54; RESP 18; TEMP 36.6; O2SAT 95
[2023-09-01] MEDS: hydroCHLOROthiazide 25 MG Tablet PO (08:06)
[2023-09-01] MEDS: Docusate Sodium 100 MG Capsule PO (08:07)
[2023-09-01] MEDS: Enoxaparin 40 MG/0.4 ML Syringe SC (08:07)
--- NOTE | 2023-09-01 09:33 | DCINST_ITS ---
Discharge Instructions Diet Discharge Diet: No restrictions Activity Discharge Activity: Return to Normal Activity Weight Bearing Status: Full weight bearing Follow Up Care Test Results: Test results from this visit will be discussed in further detail at your follow- up appointment, if applicable. Discharge Plan Admission Admit Date/Time: 08/30/23 14:25 Primary Reason for Your Visit: Stomach ulcers, esophagitis, ischemic colitis Attending Provider: Keny Kang Primary Care Provider: Rufino Jernigan Consulting Providers: Collin Cee Additional Instructions / Restrictions: Do not take any aspirin, ibuprofen, or Aleve for now, you may take Tylenol for pain Discharge Orders/Prescriptions Prescriptions: New sucralfate 1 gram Tablet 1 g PO TIDAC Qty: 90 0RF pantoprazole [Protonix] 40 mg tablet,delayed release (DR/EC) 40 mg PO BID Qty: 60 1RF ciprofloxacin HCl 500 mg tablet 500 mg PO BID Qty: 10 0RF Rx Instructions: start on 09/01/23 metronidazole 500 mg tablet 500 mg PO TID Qty: 15 0RF Rx Instructions: start on 09/01/23 Continued lisinopril 10 MG tablet 10 mg PO DAILY Patient Comments: Take 1 tablet by mouth once daily. metoprolol tartrate 50 MG tablet 50 mg PO BID Hold Instructions: Pt has been DC'd Patient Comments: TAKE 1 TABLET TWICE DAILY hydrochlorothiazide 25 MG tablet 25 mg PO DAILY Patient Comments: Take 1 tablet by mouth once daily. albuterol sulfate 1 INHALER inhaler 1 - 2 puff INHALATION Q4H PRN PRN (Reason: Wheezing) Qty: 1 0RF prednisone 20 MG tablet 20 mg PO DAILY Qty: 4 0RF Hold Instructions: Pt has been DC'd Rx Instructions: With food atorvastatin 40 mg tablet 40 mg PO QHS Patient Comments: Take 1 tablet by mouth daily at bedtime. For cholesterol. levothyroxine 50 mcg tablet 50 mcg PO DAILY Patient Comments: Take 1 tablet by mouth once daily on an empty stomach. For Thyroid. Discontinued prednisone 20 MG tablet 60 mg PO DAILY Qty: 15 0RF Hold Instructions: Pt has been DC'd doxycycline monohydrate 100 MG capsule 100 mg PO BID Qty: 20 0RF Hold Instructions: Pt has been DC'd aspirin 81 mg capsule 81 mg PO DAILY Referrals / Follow Up: Rufino Jernigan MD [Primary Care Provider] - See Referral Note (At your follow-up time, call the office to confirm that he does not want to see you earlier) Friend,Hector, DO [Med Staff - Active Staff] - See Referral Note (In 3 to 4 weeks, call the office and tell them that you were seen by the doctor in the hospital) Disposition Disposition (needs filled in before D/C Order can be placed): Home, Self Care
--- NOTE | 2023-09-01 10:10 | PCM.DC.SUM ---
Providers Date of Admission: 08/30/23 Date of Discharge: 09/01/23 Primary Care Physician: Dr. Rufino Jernigan MD Consultations 08/30/23 16:09 Consult: Gastroenterology Routine Consulting Provider: Rufina Gastroenterology Reason for Consult: Colitis EMERGENT Consult: No MD Notified: Yes Date Notified: 08/30/23 Time Notified: 16:09 Method of Notification: Verbal Reason For Visit: COLITIS Diagnosis Discharge Diagnosis (1) Colitis: Status: Acute Code(s): K52.9 - Noninfective gastroenteritis and colitis, unspecified Plan 1. Ischemic colitis-patient will remain on IV antibiotics at this time and a clear liquid diet, she will be reevaluated tomorrow #2 essential hypertension-patient is on metoprolol, lisinopril, and hydrochlorothiazide #3 hypothyroidism-patient is on Synthroid #4 multiple gastric ulcers-these were injected during her EGD today and a heater probe was used on some of these areas, patient is currently on Carafate and Protonix #5 duodenal ulcers-again patient is on Protonix and Carafate #6 esophagitis-again patient is on Protonix Total clinical time spent by myself addressing the patient's medical issues, reviewing all of her data, and collaborating with patient's care team: 35 minutes Medications at Discharge Home Medications hydrochlorothiazide 25 mg tablet 25 mg PO DAILY SEE PCP 06/03/18 lisinopril 10 mg tablet 10 mg PO DAILY SEE PCP 06/03/18 metoprolol tartrate 50 mg tablet 50 mg PO BID SEE PCP 06/03/18 albuterol sulfate 90 mcg/actuation aerosol inhaler 1 - 2 puff inhalation Q4H PRN PRN Wheezing ##1 09/14/20 prednisone 20 mg tablet 20 mg PO DAILY SEE PCP #4 tabs 03/14/21 atorvastatin 40 mg tablet 40 mg PO QHS SEE PCP 08/30/23 levothyroxine 50 mcg tablet 50 mcg PO DAILY SEE PCP 08/30/23 ciprofloxacin HCl 500 mg tablet 500 mg PO BID #10 tabs 09/01/23 metronidazole 500 mg tablet 500 mg PO TID #15 tabs 09/01/23 pantoprazole 40 mg tablet,delayed release (Protonix) 40 mg PO BID #60 tabs 09/01/23 sucralfate 1 gram tablet 1 g PO TIDAC #90 tabs 09/01/23 Hospital Course Operations None Procedures Colonoscopy and EGD Summary of Care Provided Minutes Spent on Discharge: 31 Hospital Course: This 68-year-old white female was seen in the emergency room at [facility] with complaints of rectal bleeding for 3 days. She also complained of some intermittent vomiting. Labs obtained in the emergency room revealed an elevated white blood cell count of 17.7, hemoglobin was 14.1, chemistry profile was remarkable for glucose of 163, CT of the abdomen and pelvis was obtained and showed colitis, small left adrenal adenoma, and fatty infiltration of the liver. Patient was admitted to [place] [address] for lower GI bleed, she underwent a colonoscopy which showed ischemic colitis, she also underwent an EGD which showed multiple gastric ulcers, esophagitis, and duodenal ulcers. Patient did not require blood transfusion during her hospitalization, on 09/01/2023, patient was seen and examined: On examination she appeared in good health and spirits, she does not appear to be in any distress. Vital signs as documented. Skin warm and dry and without overt rashes. Neck without JVD, thyroid appears normal, trachea is midline, neck is supple. Lungs clear, normal air movement was noted. Heart exam notable for regular rhythm, normal sounds and absence of murmurs, rubs or gallops. Abdomen unremarkable and without evidence of organomegaly, masses, or abdominal aortic enlargement, bowel sounds are present in all 4 quadrants, no abdominal tenderness was noted. Extremities nonedematous, no cyanosis was noted, no clubbing was noted. Neuro: Cranial nerves II through XII are grossly intact, no focal motor deficits were noted, sensation to light touch and pinprick is intact, motor exam 5/5 throughout. Psych: Patient is alert and oriented x3, she does not appear anxious or depressed, she does not appear agitated. Patient was discharged home in stable condition on 09/01/2023 Weight / BMI Weight Weight: 101.605 kg Body Mass Index (BMI) 40.9 ABG / Lab / Microbiology Data 08/31/23 06:05 08/31/23 06:05 Microbiology: Microbiology 08/30/23 17:30 Stool Stool Lactoferrin - Final 08/30/23 17:30 Stool Enteric Bacteriology - Final 08/30/23 17:30 Stool C. difficile DNA Amplification - Final D/C Instructions Discharge Diet: No restrictions Weight Bearing Status: Full weight bearing Meaningful Use Info Meaningful Use Diagnoses (Choose all that apply): None applicable Discharge Plan Admission Admit Date/Time: 08/30/23 14:25 Primary Reason for Your Visit: Stomach ulcers, esophagitis, ischemic colitis Attending Provider: Keny Kang Primary Care Provider: Rufino Jernigan Consulting Providers: Collin Cee Instructions Additional Instructions / Restrictions: Do not take any aspirin, ibuprofen, or Aleve for now, you may take Tylenol for pain Discharge Orders/Prescriptions Prescriptions: New sucralfate 1 gram Tablet 1 g PO TIDAC Qty: 90 0RF pantoprazole [Protonix] 40 mg tablet,delayed release (DR/EC) 40 mg PO BID Qty: 60 1RF ciprofloxacin HCl 500 mg tablet 500 mg PO BID Qty: 10 0RF Rx Instructions: start on 09/01/23 metronidazole 500 mg tablet 500 mg PO TID Qty: 15 0RF Rx Instructions: start on 09/01/23 Continued lisinopril 10 MG tablet 10 mg PO DAILY Patient Comments: Take 1 tablet by mouth once daily. metoprolol tartrate 50 MG tablet 50 mg PO BID Hold Instructions: Pt has been DC'd Patient Comments: TAKE 1 TABLET TWICE DAILY hydrochlorothiazide 25 MG tablet 25 mg PO DAILY Patient Comments: Take 1 tablet by mouth once daily. albuterol sulfate 1 INHALER inhaler 1 - 2 puff INHALATION Q4H PRN PRN (Reason: Wheezing) Qty: 1 0RF prednisone 20 MG tablet 20 mg PO DAILY Qty: 4 0RF Hold Instructions: Pt has been DC'd Rx Instructions: With food atorvastatin 40 mg tablet 40 mg PO QHS Patient Comments: Take 1 tablet by mouth daily at bedtime. For cholesterol. levothyroxine 50 mcg tablet 50 mcg PO DAILY Patient Comments: Take 1 tablet by mouth once daily on an empty stomach. For Thyroid. Discontinued prednisone 20 MG tablet 60 mg PO DAILY Qty: 15 0RF Hold Instructions: Pt has been DC'd doxycycline monohydrate 100 MG capsule 100 mg PO BID Qty: 20 0RF Hold Instructions: Pt has been DC'd aspirin 81 mg capsule 81 mg PO DAILY Referrals / Follow Up: Rufino Jernigan MD [Primary Care Provider] - See Referral Note (At your follow-up time, call the office to confirm that he does not want to see you earlier) Friend,Hector, [Med Staff - Active Staff] - See Referral Note (In 3 to 4 weeks, call the office and tell them that you were seen by the doctor in the hospital) Disposition Disposition (needs filled in before D/C Order can be placed): Home, Self Care Charges/Coding Visit Charges Inpatient E&M: 18105 Disch Hosp >30min
--- NOTE | 2023-09-01 10:28 | CASEMGMT ---
Pt to dc today. Faxed dc summary with med list to [facility] LILO Barkley at [phone].
--- NOTE | 2023-09-01 11:13 | PHA.DC.MR.R ---
Pharmacy [place] Med Reconciliation Pharmacy Service has performed discharge medication reconciliation for this patient. Patient counselling materials prepared, but pt left prior to counselling opportunity. Medicication list reviewed. The patient's discharge medication list was reviewed for discrepancies and discrepancies were resolved. Medications at Discharge Home Medications hydrochlorothiazide 25 mg tablet 25 mg PO DAILY SEE PCP 06/03/18 lisinopril 10 mg tablet 10 mg PO DAILY SEE PCP 06/03/18 metoprolol tartrate 50 mg tablet 50 mg PO BID SEE PCP 06/03/18 albuterol sulfate 90 mcg/actuation aerosol inhaler 1 - 2 puff inhalation Q4H PRN PRN Wheezing ##1 09/14/20 prednisone 20 mg tablet 20 mg PO DAILY SEE PCP #4 tabs 03/14/21 atorvastatin 40 mg tablet 40 mg PO QHS SEE PCP 08/30/23 levothyroxine 50 mcg tablet 50 mcg PO DAILY SEE PCP 08/30/23 ciprofloxacin HCl 500 mg tablet 500 mg PO BID #10 tabs 09/01/23 metronidazole 500 mg tablet 500 mg PO TID #15 tabs 09/01/23 pantoprazole 40 mg tablet,delayed release (Protonix) 40 mg PO BID #60 tabs 09/01/23 sucralfate 1 gram tablet 1 g PO TIDAC #90 tabs 09/01/23
== END 2023-09-01 11:08 | disposition home or self-care (01) | DRG 393 ==
LOC: ED 13:40 → MS3 14:42
PROVIDERS: Anesthesiology; Internal Medicine Gastroenterology; Admitting Provider Hospitalist; Emergency Provider Student in an Organized Health Care Education/Training Program; PCP Family Medicine; Visit Provider Internal Medicine
PROC: 0DJD8ZZ Inspection of Lower Intestinal Tract, Via Natural or Artificial Opening Endoscopic (ICD-10-PCS; CPT 45378; principal; 2023-08-31 10:40)
DX: K55.9 Vascular disorder of intestine, unspecified (principal); K25.4 Chronic or unspecified gastric ulcer with hemorrhage; Z68.41 Body mass index [BMI] 40.0-44.9, adult; K76.0 Fatty (change of) liver, not elsewhere classified; E66.01 Morbid (severe) obesity due to excess calories; I10 Essential (primary) hypertension; E03.9 Hypothyroidism, unspecified; E87.6 Hypokalemia; F17.210 Nicotine dependence, cigarettes, uncomplicated; K57.30 Diverticulosis of large intestine without perforation or abscess without bleeding; K20.80 Other esophagitis without bleeding; K63.5 Polyp of colon; K26.9 Duodenal ulcer, unspecified as acute or chronic, without hemorrhage or perforation; D35.02 Benign neoplasm of left adrenal gland
CPT/HCPCS: 36415; 74177; 80048; 80053; 81001; 83605; 83615; 83630; 83690; 83735; 85025; 85027; 85610; 85652; 85730; 86140; 86850; 86900; 86901; 87177; 87209; 87493; 87506; 88305; 88342; 94668; 99284; J7030; J7050; J7120; Q9967; A4216; J2405

== ENCOUNTER 2024-01-28 17:18 | Emergency (ER) | payer MEDICARE, MEDICAID, SELFPAY ==
[2024-01-28 17:19] VITALS: BP 113/72; PULSE 86; RESP 22; TEMP 37.3; O2SAT 94; BMI 41.7
[2024-01-28 17:26] VITALS: O2SAT 97
--- NOTE | 2024-01-28 17:40 | EX.ED.DYSGE1 ---
HPI <AILYN Jarquin - Last Filed: 01/28/24 18:52> History of Present Illness Chief Complaint: Cough Narrative Narrative: Patient is a 69-year-old female with history of hypertension, hyperlipidemia, hypothyroidism who presents to the emergency department with complaints of 3 days of worsening cough, body aches, fever and chills. Patient states that she has been around a lot of people that tested positive for influenza. She states that she is not feeling better after 3 days and is here for evaluation. She is complaining of cough, shortness of breath, headache as well as body aches. She states she does smoke anywhere from half a pack to a pack a day however she quit yesterday. PFS <AILYN Jarquin - Last Filed: 01/28/24 18:52> [facility] Medical History (Updated 01/28/24 @ 18:50 by AILYN Jarquin) HTN (hypertension) Hypothyroid Home Medications hydrochlorothiazide 25 mg tablet 25 mg PO DAILY SEE PCP 06/03/18 [History Last Taken Unknown] lisinopril 10 mg tablet 10 mg PO DAILY SEE PCP 06/03/18 [History Last Taken Unknown] metoprolol tartrate 50 mg tablet 50 mg PO BID SEE PCP 06/03/18 [History Last Taken Unknown] albuterol sulfate 90 mcg/actuation aerosol inhaler 1 - 2 puff inhalation Q4H PRN PRN Wheezing ##1 09/14/20 [Rx Last Taken Unknown] prednisone 20 mg tablet 20 mg PO DAILY SEE PCP #4 tabs 03/14/21 [Rx Last Taken Unknown] atorvastatin 40 mg tablet 40 mg PO QHS SEE PCP 08/30/23 [History Last Taken Unknown] levothyroxine 50 mcg tablet 50 mcg PO DAILY SEE PCP 08/30/23 [History Last Taken Unknown] ciprofloxacin HCl 500 mg tablet 500 mg PO BID #10 tabs 09/01/23 [Rx Last Taken Unknown] metronidazole 500 mg tablet 500 mg PO TID #15 tabs 09/01/23 [Rx Last Taken Unknown] pantoprazole 40 mg tablet,delayed release (Protonix) 40 mg PO BID #60 tabs 09/01/23 [Rx Last Taken Unknown] sucralfate 1 gram tablet 1 g PO TIDAC #90 tabs 09/01/23 [Rx Last Taken Unknown] albuterol sulfate 90 mcg/actuation aerosol inhaler (ProAir HFA) 2 puff inhalation Q6H PRN shortness of breath or wheezing #6.7 grams 01/28/24 [Rx Last Taken Unknown] prednisone 50 mg tablet 50 mg PO DAILY #5 tabs 01/28/24 [Rx Last Taken Unknown] Allergy/AdvReac Type Severity Reaction Status Date / Time No Known Allergies Allergy Verified 01/28/24 17:18 Social History Smoking Status: Former smoker ROS <AILYN Jarquin - Last Filed: 01/28/24 18:52> ROS ED ROS Narrative Constitutional: Negative for weight loss, weakness. Positive for fever and chills Eyes: Negative for vision loss, vision change, double vision ENT: Negative for any sore throat, ear pain, congestion Cardiovascular: Negative for any chest pain, tightness, palpitations Respiratory: Negative for any sputum production, hemoptysis, dyspnea on exertion, orthopnea. Positive for cough, dyspnea Gastrointestinal: Negative for any abdominal pain, nausea, vomiting, diarrhea, constipation, blood in stool, blood in vomit : Negative for any urinary frequency, dysuria, retention, blood in urine Muscle skeletal: Negative for any neck pain, back pain. Positive for myalgias Neurological: Negative for any headache, syncope, dizziness Skin: Negative for any rashes, itching, abrasions, lacerations Psychiatric: Negative for any depression, anxiety, stress, suicidal ideation, homicidal ideation Hematologic: Negative for any excessive bruising, easy bleeding EXAM <AILYN Jarquin - Last Filed: 01/28/24 18:52> Physical Exam Narrative Exam Narrative: Vital signs reviewed. HEET: Head normocephalic atraumatic, TMs clear bilaterally. Posterior pharynx is clear, moist mucous membranes. Nares clear bilaterally. Neck: Supple with no lymphadenopathy or tenderness. No signs of meningismus. Cardiac: Regular rate and rhythm no murmurs gallops or rubs, equal peripheral pulses bilaterally. Respiratory: Patient has expiratory wheezing in the right mid, right lower lobe. Remainder of the pulmonary examination was unremarkable. No chest tenderness. Abdomen: Soft, nontender, nondistended. No abdominal bruit or pulsatile masses. No hepatosplenomegaly Extremities: No peripheral edema, no signs of gross trauma or deformity. Active full range of motion of all extremities. Neuro: Cranial nerves II through XII intact, no focal neurological deficits. Skin: Clean dry and intact with no rash, purpura, petechiae, vesicles or pustules. Backs/flank: No CVA tenderness, no midline spinal tenderness, no deformity. Psych: Normal mood and affect. No SI, HI or acute psychosis. Const Vital Signs: 01/28/24 17:19 01/28/24 17:26 01/28/24 17:48 Temperature 99.2 F H Temperature Source Temporal Pulse Rate 86 86 Respiratory Rate 22 H 16 Respiratory Effort Short of Breath Respiratory Depth Deep Respiratory Pattern Tachypnea Normal Blood Pressure 113/72 Blood Pressure Mean 85 Pulse Ox 94 Oxygen Delivery Method Room Air Room Air 01/28/24 18:59 Temperature 98.4 F Temperature Source Pulse Rate 78 Respiratory Rate 17 Respiratory Effort Respiratory Depth Respiratory Pattern Blood Pressure 92/72 Blood Pressure Mean 78 Pulse Ox 98 Oxygen Delivery Method Positive well nourished and well developed General Appearance ED: well developed <Dr. Erwin Adams DO - Last Filed: 01/28/24 22:11> Physical Exam Const Vital Signs: 01/28/24 17:19 01/28/24 17:26 01/28/24 17:48 Temperature 99.2 F H Temperature Source Temporal Pulse Rate 86 86 Respiratory Rate 22 H 16 Respiratory Effort Short of Breath Respiratory Depth Deep Respiratory Pattern Tachypnea Normal Blood Pressure 113/72 Blood Pressure Mean 85 Pulse Ox 94 Oxygen Delivery Method Room Air Room Air 01/28/24 18:59 Temperature 98.4 F Temperature Source Pulse Rate 78 Respiratory Rate 17 Respiratory Effort Respiratory Depth Respiratory Pattern Blood Pressure 92/72 Blood Pressure Mean 78 Pulse Ox 98 Oxygen Delivery Method MDM <AILYN Jarquin - Last Filed: 01/28/24 18:52> MDM Radiography Diagnostic Testing: Clinical Impression(s) from Imaging Studies Chest X-Ray 01/28/24 18:01 IMPRESSION: No radiographic evidence of acute cardiopulmonary disease. Electronically Signed: Magdi Mcqueen MD at 18:24 EST , Treatment and Re-Evaluation :: Patient appears to be in no obvious distress, vital signs are stable. Presenting to the emergency department with complaints of cough, congestion, body aches over the last 3 days. Differential diagnosis includes community-acquired pneumonia viral symptomology such as COVID-19, influenza, gastroenteritis, another virus. Patient will receive rapid COVID-19/influenza/RSV. Patient will be given breathing treatments for the wheezing. Patient be given oral Tylenol two-view chest x-ray. Patient be reevaluated. All radiologic examinations were read, reviewed by the emergency department attending. From these reads, a plan of care will be put in place. On reevaluation, the patient was feeling better. Patient will be given a Naprosyn for her back pain. Patient chest x-ray entered by the ER physician was negative for any acute cardiopulmonary pathology. Patient's rapid viral test was positive for RSV as well as influenza A. This does coincide with patient's symptoms. At this time, patient be given an albuterol inhaler as well as a 5-day burst of prednisone. She will continue to take ibuprofen, Tylenol, all questions were answered, patient stable for discharge. She was given strict return precaution. <Dr. Erwin Adams, DO - Last Filed: 01/28/24 22:11> [facility] Narrative Medical decision making narrative: Patient appears to be in no obvious distress, vital signs are stable. Presenting to the emergency department with complaints of cough, congestion, body aches over the last 3 days. Differential diagnosis includes community-acquired pneumonia viral symptomology such as COVID-19, influenza, gastroenteritis, another virus. Patient will receive rapid COVID-19/influenza/RSV. Patient will be given breathing treatments for the wheezing. Patient be given oral Tylenol two-view chest x-ray. Patient be reevaluated. All radiologic examinations were read, reviewed by the emergency department attending. From these reads, a plan of care will be put in place. On reevaluation, the patient was feeling better. Patient will be given a Naprosyn for her back pain. Patient chest x-ray entered by the ER physician was negative for any acute cardiopulmonary pathology. Patient's rapid viral test was positive for RSV as well as influenza A. This does coincide with patient's symptoms. At this time, patient be given an albuterol inhaler as well as a 5-day burst of prednisone. She will continue to take ibuprofen, Tylenol, all questions were answered, patient stable for discharge. She was given strict return precaution. This patient was seen with a PA/FULL ST[employer] SOFTWARE DEVELOPER Individually assessed they patient including history and physical. I have reviewed everything on the chart that is available and agree with the documentation provided by the PA/FULL ST[employer] SOFTWARE DEVELOPER including discussion about the assessment, treatment plan, discussion, and return precautions. Patient presenting with respiratory symptoms. Concern for viral etiology. She was tested and all her tests were negative. Patient treated with steroids and breathing treatments and feels better and her wheezing is improved. Chest x-ray my interpretation shows no acute process. Radiologist interprets this and agrees. Given that she feels better we will put her on a burst of prednisone and give her albuterol. Tylenol ibuprofen for pain and/or fever Radiography Diagnostic Testing: Clinical Impression(s) from Imaging Studies Chest X-Ray 01/28/24 18:01 IMPRESSION: No radiographic evidence of acute cardiopulmonary disease. Electronically Signed: Magdi Mcqueen MD at 18:24 EST , Discharge Plan Triage Chief Complaint: Cough ED Midlevel Provider: Vasile Cid ED Provider: Erwin Adams Dx/Rx/DC Orders Clinical Impression: Viral illness, RSV (respiratory syncytial virus infection), Influenza Instructions: RSV (Respiratory Syncytial Virus), ED Influenza (Adult) Prescriptions: New albuterol sulfate [ProAir HFA] 90 mcg/actuation HFA aerosol inhaler 2 puff inhalation Q6H PRN (Reason: shortness of breath or wheezing) Qty: 6.7 0RF prednisone 50 mg tablet 50 mg PO DAILY Qty: 5 0RF No Action lisinopril 10 MG tablet 10 mg PO DAILY Patient Comments: Take 1 tablet by mouth once daily. metoprolol tartrate 50 MG tablet 50 mg PO BID Hold Instructions: Pt has been DC'd Patient Comments: TAKE 1 TABLET TWICE DAILY hydrochlorothiazide 25 MG tablet 25 mg PO DAILY Patient Comments: Take 1 tablet by mouth once daily. albuterol sulfate 1 INHALER inhaler 1 - 2 puff INHALATION Q4H PRN PRN (Reason: Wheezing) Qty: 1 0RF prednisone 20 MG tablet 20 mg PO DAILY Qty: 4 0RF Hold Instructions: Pt has been DC'd Rx Instructions: With food atorvastatin 40 mg tablet 40 mg PO QHS Patient Comments: Take 1 tablet by mouth daily at bedtime. For cholesterol. levothyroxine 50 mcg tablet 50 mcg PO DAILY Patient Comments: Take 1 tablet by mouth once daily on an empty stomach. For Thyroid. sucralfate 1 gram Tablet 1 g PO TIDAC Qty: 90 0RF pantoprazole [Protonix] 40 mg tablet,delayed release (DR/EC) 40 mg PO BID Qty: 60 1RF ciprofloxacin HCl 500 mg tablet 500 mg PO BID Qty: 10 0RF Rx Instructions: start on 09/01/23 metronidazole 500 mg tablet 500 mg PO TID Qty: 15 0RF Rx Instructions: start on 09/01/23 Primary Care Provider: Rufino Jernigan Referrals: Rufino Jernigan MD [Primary Care Provider] - Activity Restrictions/Additional Instructions: Please follow-up outpatient. You should start feeling better within 3 to 5 days. You have both influenza A and RSV. Use the albuterol inhaler, as well is the prednisone. Disposition Disposition: Home, Self Care Discharge Date/Time: 01/28/24 19:00
[2024-01-28] MEDS: Albuterol 2.5 MG/3 ML VIAL.NEB. INHALATION (17:45)
[2024-01-28] MEDS: Ipratropium/Albuterol Sulfate 3 ML AMPUL.NEB INHALATION (17:45)
[2024-01-28 17:48] VITALS: PULSE 86; RESP 16
[2024-01-28] MEDS: Acetaminophen 500 MG Tablet 1000 MG PO (17:50)
--- NOTE | 2024-01-28 18:01 | RAD_ITS ---
EXAM: XR CHEST, 2 VIEWS CLINICAL INDICATION: cough TECHNIQUE: Frontal and lateral views of the chest. COMPARISON: 09/14/2020 FINDINGS: LUNGS AND PLEURAL SPACES: Unremarkable. No consolidation or edema. No pneumothorax. No effusion. HEART: Unremarkable. Cardiac silhouette not enlarged. MEDIASTINUM: Central airways and mediastinal contour are unremarkable. BONES/JOINTS: Unremarkable. No acute fracture. SOFT TISSUES: Unremarkable. RAD/Chest PA and Lateral IMPRESSION: No radiographic evidence of acute cardiopulmonary disease. Electronically Signed: Magdi Mcqueen MD at 18:24 EST ,
--- OUTSIDE RECORDS SUMMARY | 2024-01-28 18:19 | XMS RPT_ITS | CCD ---
Author Name Unknown Address [address] [place] [address] Organization [facility] Care Team Providers Care Unit Aide Tech Name Role Phone JOSE KEILA Unavailable Unavailable LUKAS JERNIGAN Unavailable Unavailable Lukas Jernigan MD Primary Care Provider Lukas Jernigan MD Primary Care Provider Lukas Jernigan MD Primary Care Provider Lukas Jernigan MD Primary Care Provider LUKAS JERNIGAN Primary Care Unavailab LUKAS Herbert Primary Care Unavailab EVELYNE Salvador Referring Unavailable LUKAS JERNIGAN Primary Care Unavailab EVELYNE Salvador Attending Unavailable PODLOGADA BUSTILLOS Attending Unavailable LUKAS JERNIGAN Primary Care Unavailab LUKAS Herbert Primary Care Unavailab le Medications Current Medications Medication Drug Class(es) Dates Sig (Normalized) Sig (Original) hydroCHLOROthiazide 25 mg oral tablet (20 sources) Thiazide Diuretic Start: 4 End: 4 take 1 tablet by mouth once daily hydroCHLOROthiazide 25 mg tablet Indications: Essential hypertension Take 1 tablet by mouth once daily. 90 tablet 1 12/08/2023 06/05/2024 Active Completed/Discontinued Medications Medication Drug Class(es) Dates Sig (Normalized) Sig (Original) [id number] 200 actuat albuterol 0.09 mg/actuat metered dose inhaler (12 sources) beta2-Adrenergic Agonist Start: 04-21-2023 take 2 puff(s) by inhalation every four hours as needed for wheezing albuterol HFA (PROVENTIL HFA, VENTOLIN HFA) 90 mcg/actuation inhaler Inhale 2 Puffs as instructed every 4 hours as needed for wheezing/shortnes s of breath. 6.7 g 0 04/21/2023 Active Problems Active Problems Problem Classification Problem Date Documented Date Episodic/Chronic Cardiac dysrhythmias (17 sources) Atrial premature complex ; Translations: [Atrial premature depolarization] Onset: 04-02-2022 04-02-2022 Chronic Cardiac dysrhythmias (2 sources) Bradycardia; Translations: [Bradycardia, unspecified] Episodic Chronic kidney disease (5 sources) Chronic kidney disease stage 3A ; Translations: [Chronic kidney disease, stage 3a (HCC)] Onset: 12-08-2023 Chronic Chronic kidney disease (1 source) Chronic kidney disease; Translations: [Chronic kidney disease, stage 3a (HCC)] Onset: 12-08-2023 Diabetes mellitus without complication (3 sources) Increased glucose level; Translations: [Other abnormal glucose] Onset: 12-08-2023 Episodic Disorders of lipid metabolism (20 sources) Pure hypercholesterolemia; Translations: [Pure hypercholesterolemia, unspecified] Onset: 06-22-2019 06-22-2019 Chronic Essential hypertension (20 sources) Hypertensive disorder; Translations: [Essential (primary) hypertension] Onset: 12-08-2023 12-01-2017 Chronic Noninfectious gastroenteritis (1 source) Colitis; Translations: [Noninfective gastroenteritis and colitis, unspecified] 09-05-2023 Episodic Other nutritional; endocrine; and metabolic disorders (20 sources) Body mass index 30+ - obesity; Translations: [Obesity, unspecified] 12-01-2017 Chronic Other nutritional; endocrine; and metabolic disorders (9 sources) Body mass index 40+ - severely obese; Translations: [Morbid (severe) obesity due to excess calories] Onset: 06-01-2023 Chronic Other nutritional; endocrine; and metabolic disorders (1 source) Morbid (severe) obesity due to excess calories; Translations: [Obesity, Class III, BMI 40-49.9 (morbid obesity) ([facility])] Onset: 06-01-2023 Chronic Other screening for suspected conditions (not mental disorders or infectious disease) (5 sources) Raised TSH level; Translations: [Other specified abnormal findings of blood chemistry] Onset: 06-01-2023 Episodic Thyroid disorders (3 sources) Acquired hypothyroidism; Translations: [Hypothyroidism, unspecified] Onset: 12-08-2023 Chronic Unclassified (1 source) Acute cough; Translations: [Acute cough] Onset: 04-21-2023 Past or Other Problems Problem Classification Problem Date Documented Da te Episodic/Chronic Residual codes; unclassified (20 sources) Tobacco use and exposure - finding; Translations: [Tobacco use] Onset: 08-21-2018 08-21-2018 Episodic Residual codes; unclassified (1 source) Tobacco use; Translations: [Tobacco use] Onset: 08-22-2018 Episodic Spondylosis; intervertebral disc disorders; other back problems (20 sources) Chronic low back pain; Translations: [Lumbago with sciatica, right side] Onset: 08-30-2018 08-30-2018 Episodic Results Test Name Value Interpretation Reference Range Facil ity Vital Signs Date Time Vital Sign Value Performing Clinician Ronald barajas 06-01-2023 12:53-0400 Body weight 103.33 kg Ada Podlogar CARD SORTER.SLAB PULLER Work Phone: [facility] 06-01-2023 12:53-0400 Diastolic blood pressure 78 mm[Hg] Ada Podlogar CARD SORTER.SLAB PULLER Work Phone: [facility] 06-01-2023 12:53-0400 Heart rate 63 /min Ada Podlogar CARD SORTER.SLAB PULLER Work Phone: [facility] 06-01-2023 12:53-0400 Respiratory rate 16 /min Ada Podlogar CARD SORTER.SLAB PULLER Work Phone: [facility] 06-01-2023 12:53-0400 SaO2% (BldA) [Mass fraction] 96 % Ada Podlogar CARD SORTER.SLAB PULLER Work Phone: [facility] 06-01-2023 12:53-0400 Systolic blood pressure 108 mm[Hg] Ada Podlogar CARD SORTER.SLAB PULLER Work Phone: [facility] 12-02-2022 12:59-0500 Body weight 104.24 kg Ada Podlogar CARD SORTER.SLAB PULLER Work Phone: [facility] 12-02-2022 12:59-0500 Diastolic blood pressure 82 mm[Hg] Ada Podlogar CARD SORTER.SLAB PULLER Work Phone: [facility] 12-02-2022 12:59-0500 Heart rate 60 /min Ada Podlogar CARD SORTER.SLAB PULLER Work Phone: [facility] 12-02-2022 12:59-0500 Respiratory rate 16 /min Ada Podlogar CARD SORTER.SLAB PULLER Work Phone: [facility] 12-02-2022 12:59-0500 SaO2% (BldA) [Mass fraction] 98 % Ada Podlogar CARD SORTER.SLAB PULLER Work Phone: [facility] 12-02-2022 12:59-0500 Systolic blood pressure 130 mm[Hg] Ada Podlogar CARD SORTER.SLAB PULLER Work Phone: [facility] 04-02-2022 09:58-0400 Body weight 109.59 kg Lukas Jernigan MD Work Phone: [facility] 04-02-2022 09:58-0400 Diastolic blood pressure 80 mm[Hg] Lukas Jernigan MD Work Phone: [facility] 04-02-2022 09:58-0400 Heart rate 75 /min Lukas Jernigan MD Work Phone: [facility] 04-02-2022 09:58-0400 Respiratory rate 18 /min Lukas Jernigan MD Work Phone: [facility] 04-02-2022 09:58-0400 SaO2% (BldA) [Mass fraction] 97 % Lukas Jernigan MD Work Phone: [facility] 04-02-2022 09:58-0400 Systolic blood pressure 110 mm[Hg] Lukas Jernigan MD Work Phone: [facility] 03-31-2022 11:35-0400 Body weight 111.4 kg Ada Podlogar CARD SORTER.SLAB PULLER Work Phone: [facility] 03-31-2022 11:35-0400 Diastolic blood pressure 82 mm[Hg] Ada Podlogar CARD SORTER.SLAB PULLER Work Phone: [facility] 03-31-2022 11:35-0400 Heart rate 45 /min Ada Podlogar CARD SORTER.SLAB PULLER Work Phone: [facility] 03-31-2022 11:35-0400 Respiratory rate 18 /min Ada Podlogar CARD SORTER.SLAB PULLER Work Phone: [facility] 03-31-2022 11:35-0400 SaO2% (BldA) [Mass fraction] 98 % Ada Podlogar CARD SORTER.SLAB PULLER Work Phone: [facility] 03-31-2022 11:35-0400 Systolic blood pressure 112 mm[Hg] Ada Podlogar CARD SORTER.SLAB PULLER Work Phone: [facility] Encounters Encounter Date Encounter Type Care Provider Facility Start: 01-18-2024 ambulatory Lukas Jernigan MD Work Phone: Internal Medicine [facility] Start: 01-11-2024 ambulatory Lukas Jernigan MD Work Phone: Internal Medicine [facility] Start: 01-06-2024 ambulatory Rossy Griggs MA [facility] Procedures Date Procedure Procedure Detail Performing Clinician Start: 12-08-2023 Lipid 1996 panel - S priti or Plasma Rossy Griggs MA Start: 08-31-2023 Colonoscopy Rufino Jernigan MD Work Phone: Start: 04-02-2022 Lipid 1996 panel - S priti or Plasma Rossy Griggs MA Start: 03-11-2021 Adult depression screening assessment Lukas Jernigan MD Work Phone: Start: 01-01-2020 Mammography Rufino Jernigan MD Work Phone: Start: 12-04-2018 Colonoscopy Rufino Jernigan MD Work Phone: Plan of Treatment Date Care Activity Detail Author Start: 12-08-2028 Lipid panel Lipid Screening [facility] Start: 12-01-2027 Urine microalbumin profile [facility] Start: 04-02-2027 Lipid 1996 panel - S priti or Plasma Lipid Screening [facility] Start: 04-02-2027 LIPID SCREEN LIPID SCREEN [facility] Start: 12-08-2026 Diabetes Screening Diabetes Screenin g [facility] Start: 04-02-2025 DIABET[facility]CREEN [facility] Start: 04-02-2025 Diabetes Screening Diabetes Screenin g [facility] Start: 12-24-2024 LIPID SCREEN LIPID SCREEN [facility] Start: 12-08-2024 Annual PCP Team Urology Surgeon david Disease Visit Annual PCP Team Chronic Disease Visit [facility] Start: 12-08-2024 Creatinine measurement Serum Creatin ine [facility] Start: 12-08-2024 Shingrix Vaccine (1 of 2) Mars grix Vaccine (1 of 2) [facility] Immunizations Immunization Date Immunization Notes Care Provider Fa ziggy 06-22-2019 pneumococcal conjuga te vaccine, 13 valcecilia Jernigan MD Work Phone: [facility] 08-21-2018 influenza virus vacc ine, unspecified formulation Rossy Griggs MA [facility] 12-01-2017 pneumococcal polysaccharide vaccine, 23 valent Lukas Jernigan MD Work Phone: [facility] 12-01-2017 tetanus toxoid, redu crystal diphtheria toxoid, and acellular pertussis vaccine, adsorbed Lukas Jernigan MD Work Phone: [facility] Payers Date Payer Category Payer Medicare [employer] MEDICARE [employer] GOLD PLUS [id number] 2020-Present [phone] [address] [address] [place] [address] [facility] [id number] 2020 Medicare HU[employer]NA MEDICARE HU[employer]NA GOLD PLUS [id number] 2020-Present [phone] [address] [address] [place] [address] [facility] [id number] 2020 Private Health Insurance [id number] 2016 Medicaid [facility] [id number] 2016-Present [phone] [address] [place] [address] Medicaid [id number] 2016 Medicaid [facility] MEDIC A[facility] MEDICAID [id number] 2016-Present [phone] [address] [place] [address] Medicaid [id number] 2016 Medicare [id number] Social History Date Type Detail Facility Start: [facility]-11[facility]2021 [facility] Work Phone: Start: 03-11-2021 End: 06-01-2023 Cigarettes smoked current (pack per day) - Reported 0.25 [facility] Start: 03-11-2021 End: 12-02-2022 Tobacco use and exposure Smokeless tobacco non-user [facility] Work Phone: Start: 03-11-2021 End: 06-01-2023 Alcohol intake Ex-drinker (finding) [facility] Start: 03-11-2021 End: 12-02-2022 Tobacco Comment Quit 2020 [facility] Start: 1955 Sex Assigned At Not on file [facility] Start: 02-15-2022 End: 04-02-2022 Exposure to SARS-CoV-2 (event) Not sure [facility] History of tobacco use Current smoker [facility] Work Phone: History of tobacco use Cigarette Smoker [facility] Work Phone: Start: 12-02-2022 [facility] Occasional tobacco smoker [facility] Start: 06-01-2023 End: 12-08-2023 Tobacco use panel [facility] Adult Depression Screening Assessment 0 [facility] Clinical Notes 06-22-2019 to 01-16-2024 Note Date & Type Note Facility documented in this encounter [facility]02-14-2024 NotePatient Outreach (INTMMN) ANASTASIA BUI ([id number]) 1955 F Date Time Provider Department 01/11/24 LUKAS JERNIGAN During your visit today, we recorded the following information about you: Allergies As of Date: 01/11/2024 (No Known Allergies) Date Reviewed: 12/08/2023 Reviewed by: My Mott Cma - Fully Assessed Visit Diagnosis:Chronic kidney disease, stage 3a (HCC) [N18.31] Order(s):[facility] Order #: [id number] FUTURE Prescriptions as of 01/16/2024 - lisinopril (ZESTRIL) 10 mg tablet Take 1 tablet by mouth once daily. - hydroCHLOROthiazide 25 mg tablet Take 1 tablet by mouth once daily. - levothyroxine (SYNTHROID) 50 mcg tablet Take 1 tablet by mouth once daily. Take on empty stomach. For Thyroid. - atorvastatin (LIPITOR) 40 mg tablet Take 1 tablet by mouth daily at bedtime. For cholesterol. - amitriptyline (ELAVIL) 25 mg tablet Take 1 tablet by mouth daily at bedtime. - albuterol HFA (PROVENTIL HFA, VENTOLIN HFA) 90 mcg/actuation inhaler Inhale 2 Puffs as instructed every 4 hours as needed for wheezing/shortness of breath. Problem List As Of Date 01/11/2024 Noted Resolved Obesity (BMI 35.0-39.9 without comorbidity) [E6* Hypertension [I10] Tobacco use [Z72.0] 08/21/2018 Chronic bilateral low back pain with right-side*08/30/2018 Hyperlipidemia [E78.5] 06/22/2019 Pure hypercholesterolemia [E78.00] 06/22/2019 Premature atrial complex [I49.1] 04/02/2022 Obesity, Class III, BMI >= 40 [E66.01] 06/01/2023 Chronic kidney disease, stage 3a (HCC) [N18.31] 12/08/2023 Encounter Status:Closed by VERA HANLEY on 01/16/24[facility] 01-06-2024 NotePatient Outreach (NETNAV) ANASTASIA BUI ([id number]) 1955 F Date Time Provider Department 01/06/24 ROSSY BRIDGES NETNALucia During your visit today, we recorded the following information about you: Rossy Bridges MA 01/06/2024 11:34 AM Signed POPULATION HEALTH NAVIGATION OUTREACH Action/ Mammogram ordered 02/02/2023 Patient Identified by Name and : NO Outreach Outcome/Action Unable to reach patient: Left message Nadanut message sent Did you use a PCP flex slot to schedule this appointment? N/A Reason for Outreach Care Gap or Scheduling/Wellness visits Payer: Payor: HUMANA MEDICARE / Plan: [employer] / Product Type: HMO / Care Gap Reviewed:: Breast Cancer screening Reminder: Reminder note to check Health Maintenance for items below Health Maintenance items due: Covid-19 Vaccine(1) Never done RSV Vaccine(1 - 1-dose 60+ series) Never done Hemoglobin/Hematocrit due on 10/24/2019 Mammogram Screening due on 01/01/2021 Pneumococcal Vaccine: 65+(3 of 3 - PPSV23 or PCV20) due on 12/01/2022 Advance Directive Discussion Never done Navigation Signature: Rossy Griggs MA January 06, 2024 11:27 AM Allergies As of Date: 01/06/2024 (No Known Allergies) Date Reviewed: 12/08/2023 Reviewed by: My Mott Cma - Fully Assessed Reason for Visit: Population Health Navigation Outreach [3910] Cmt: [employer] Care Gaps Prescriptions as of 01/06/2024 - lisinopril (ZESTRIL) 10 mg tablet Take 1 tablet by mouth once daily. - hydroCHLOROthiazide 25 mg tablet Take 1 tablet by mouth once daily. - levothyroxine (SYNTHROID) 50 mcg tablet Take 1 tablet by mouth once daily. Take on empty stomach. For Thyroid. - atorvastatin (LIPITOR) 40 mg tablet Take 1 tablet by mouth daily at bedtime. For cholesterol. - amitriptyline (ELAVIL) 25 mg tablet Take 1 tablet by mouth daily at bedtime. - albuterol HFA (PROVENTIL HFA, VENTOLIN HFA) 90 mcg/actuation inhaler Inhale 2 Puffs as instructed every 4 hours as needed for wheezing/shortness of breath. Problem List As Of Date 01/06/2024 Noted Resolved Obesity (BMI 35.0-39.9 without comorbidity) [E6* Hypertension [I10] Tobacco use [Z72.0] 08/21/2018 Chronic bilateral low back pain with right-side*08/30/2018 Hyperlipidemia [E78.5] 06/22/2019 Pure hypercholesterolemia [E78.00] 06/22/2019 Premature atrial complex [I49.1] 04/02/2022 Obesity, Class III, BMI >= 40 [E66.01] 06/01/2023 Chronic kidney disease, stage 3a (HCC) [N18.31] 12/08/2023 Encounter Status:Closed by ROSSY BRIDGES on 01/06/24[facility]02-09-2024 NoteHNO ID: [id number] Author: ROSSY BRIDGES MA Service: ? Author Type: Cook House Laborer Type: Progress Notes Filed: 01/06/2024 11:34 Note Text: POPULATION HEALTH NAVIGATION OUTREACH Action/FYI Mammogram ordered 02/02/2023 Patient Identified by Name and : NO Outreach Outcome/Action Unable to reach patient: Left message Nadanut message sent Did you use a PCP flex slot to schedule this appointment? N/A Reason for Outreach Care Gap or Scheduling/Wellness visits Payer: Payor: HUMANA MEDICARE / Plan: [employer] / Product Type: HMO / Care Gap Reviewed:: Breast Cancer screening Reminder: Reminder note to check Health Maintenance for items below Health Maintenance items due: Covid-19 Vaccine(1) Never done RSV Vaccine(1 - 1-dose 60+ series) Never done Hemoglobin/Hematocrit due on 10/24/2019 Mammogram Screening due on 01/01/2021 Pneumococcal Vaccine: 65+(3 of 3 - PPSV23 or PCV20) due on 12/01/2022 Advance Directive Discussion Never done Navigation Signature: Rossy Griggs MA January 06, 2024 11:27 [facility]02-09-2024 History of Present illness Narrative* Rossy Bridges MA - 01/06/2024 11:27 AM EST POPULATION HEALTH NAVIGATION OUTREACH Action/FYI Mammogram ordered 02/02/2023 Patient Identified by Name and : NO Outreach Outcome/Action Unable to reach patient: Left message Nadanut message sent Did you use a PCP flex slot to schedule this appointment? N/A Reason for Outreach Care Gap or Scheduling/Wellness visits Payer: Payor: HU[employer]NA MEDICARE / Plan: [employer] / Product Type: HMO / Care Gap Reviewed:: Breast Cancer screening Reminder: Reminder note to check Health Maintenance for items below Health Maintenance items due: Covid-19 Vaccine(1) Never done RSV Vaccine(1 - 1-dose 60+ series) Never done Hemoglobin/Hematocrit due on 10/24/2019 Mammogram Screening due on 01/01/2021 Pneumococcal Vaccine: 65+(3 of 3 - PPSV23 or PCV20) due on 12/01/2022 Advance Directive Discussion Never done Navigation Signature: Rossy Griggs MA January 06, 2024 11:27 AM [facility] NoteHNO ID: [id number] Author: EVELYNE DIAZ APRN.SLAB PULLER Service: ? Author Type: Nurse Practitioner Type: Progress Notes Filed: 12/08/2023 16:40 Note Text: Chief Complaint Patient presents with: 6 Month Exam HPI Anastasia Bui is a 68 year old female who presents here today for Above Complaints.. Patient presents for routine follow up. Patient reports she is doing well and has no complaints or concerns at this time. Past medical history, appointments, medications, allergies reviewed. Previous Medical History PAST MEDICAL HISTORY Diagnosis Date Anxiety and depression Cataracts, bilateral s/p surgical removal Hyperlipidemia Hypertension Morbid obesity (HCC) Osteopenia Premature atrial complex Tobacco use Previous Surgical History PAST SURGICAL HISTORY Procedure Laterality Date DELIVERY ONLY 1989 COLONOSCOPY 09/01/12 XCAPSL CTRC RMVL INSJ IO LENS PROSTH CPLX WO ECP 02/17/12 03/01/12 bilateral Family History FAMILY HISTORY Problem Relation Age of Onset Stroke Father Diabetes Father Hypertension Father Alcohol/Drug Father Cancer Mother ovarian Coronary Artery Disease Sister DC Arthritis Brother Patient Allergies ALLERGIES No Known Allergies Current Medications Current Outpatient Medications on File Prior to Visit Medication Sig levothyroxine (SYNTHROID) 50 mcg tablet Take 1 tablet by mouth once daily. Take on empty stomach. For Thyroid. lisinopril (ZESTRIL) 10 mg tablet Take 1 tablet by mouth once daily. hydroCHLOROthiazide 25 mg tablet Take 1 tablet by mouth once daily. atorvastatin (LIPITOR) 40 mg tablet Take 1 tablet by mouth daily at bedtime. For cholesterol. amitriptyline (ELAVIL) 25 mg tablet Take 1 tablet by mouth daily at bedtime. albuterol HFA (PROVENTIL HFA, VENTOLIN HFA) 90 mcg/actuation inhaler Inhale 2 Puffs as instructed every 4 hours as needed for wheezing/shortness of breath. No current facility-administered medications on file prior to visit. Social History Social History Tobacco Use Smoking status: Some Days Packs/day: 0.25 Years: 50.00 Additional pack years: 0.00 Total pack years: 12.50 Types: Cigarettes Smokeless tobacco: Never Tobacco comments: Quit 2020 Substance Use Topics Alcohol use: Not Currently Alcohol/week: 2.0 standard drinks of alcohol Types: 2 Cans of Beer (12oz) per week Drug use: No Review of Symptoms REVIEW OF SYSTEMS SEE HPI EXAM: BP 124/80 Pulse 98 Resp 16 Wt 102.1 kg (225 lb) BMI 41.15 kg/m? General Appearance: Well appearing, alert, in no acute distress, well-hydrated, well nourished.. Lungs: Lungs clear to auscultation. No wheezing, rhonchi, rales.. Heart: RRR without murmur, gallop, or rubs. No ectopy. Musculoskeletal: No joint swelling, deformity, or tenderness. Peripheral Pulses: Normal. Neurologic: Gait normal. Reflexes normal and symmetric. Sensation grossly intact.. Health Maintenance List Covid-19 Vaccine(1) Never done Shingrix Vaccine(1 of 2) Never done RSV Vaccine(1 - 1-dose 60+ series) Never done Mammogram Screening due on 01/01/2021 Pneumococcal Vaccine: 65+(3 of 3 - PPSV23 or PCV20) due on 12/01/2022 Advance Directive Discussion Never done Depression Assessment Never done Influenza Vaccine(1) due on 05/27/2024 Annual PCP Team Chronic Disease Visit due on 06/01/2024 BP Controlled (<130/80) due on 06/01/2024 Colorectal Cancer Screening due on 08/31/2024 Diabetes Screening due on 04/02/2025 Lipid Screening due on 04/02/2027 DTaP,Tdap,Td Vaccine(3 - Td or Tdap) due on 12/01/2027 Bone Density Screening Completed Hepatitis C Screening Completed ASSESSMENT/PLAN: 1. Pure hypercholesterolemia - ICD9: 272.0, ICD10: E78.00 (primary diagnosis) - LIPID PANEL, NONFASTING 2. Essential hypertension - ICD9: 401.9, ICD10: I10 - Controlled - Continue current medications - Recommend home blood pressure monitoring, to bring results to next visit - Encouraged sodium restriction, DASH or Mediterranean diet - Recommend regular aerobic exercise - Discussed need for and benefit of weight loss. BMI 41.15 kg/(m2) - LISINOPRIL 10 MG TABLET - HYDROCHLOROTHIAZIDE 25 MG TABLET - COMP METABOLIC PANEL 3. Hypothyroidism, acquired - ICD9: 244.9, ICD10: E03.9 - Instructed patient on importance of taking on an empty stomach either first thing in the morning or at bedtime. - check TSH today - LEVOTHYROXINE 50 MCG TABLET - TSH BLD 4. Prediabetes - ICD9: 790.29, ICD10: R73.03 - HGB A1C Evelyne Diaz APRN.[facility]10-09-2023 NoteHNO ID: [id number] Author: Mareg Barrios LPN Service: ? Author Type: LICENSED NURSE Type: Progress Notes Filed: 10/05/2023 2:09 PM Note Text: Letter sent to contact office to schedule follow up visit.[facility]10-09-2023 NotePatient Outreach (FAMPWS) ANASTASIA BUI ([id number]) 1955 F Date Time Provider Department 09/05/23 AMIRA LÓPEZ During your visit today, we recorded the following information about you: Amira López MA 10/05/2023 2:09 PM Signed TRANSITION CARE MANAGEMENT (TCM) INITIAL CONTACT [employer] Outreach Provider Action/FYI: - Pt admitted to [facility] 08/30/23 - 09/01/23 for colitis - Underwent colonoscopy for GI bleed shoing ischemic colitis - Underwent EGD showing multiple gastric ulcers, esophagitis, and duodenal ulcers - Unable to reach patient via phone, number disconnected Initial contact with patient post discharge, spoke to unable to reach patient. Patient identified by name and . TRANSITION CARE MANAGEMENT INITIAL OUTREACH DOCUMENTATION: Date of Outreach: 09/05/2023 Outreach Attempt 1: Contact Not Made Date of Discharge 09/01/2023 Some recent data might be hidden SUMMARY: -Pt discharged from [facility] on 09/01/23. -Admitted for: Acute Colitis Do you have a hospital follow up appointment with your PCP? Appointment on with . No. Assist patient with follow-up appointment within 1-14 calendar days from discharge date. If patient prefers not to schedule follow-up appointment at this time, notify PCP. MEDICATIONS: Many patients have questions or concerns about their medications once they are home. Were you prescribed any new medications? Yes If yes, what are those medications? Sucralfate 1 gram tablet TIDAC; pantoprazole 40 mg BID, ciprofloxacin 500 mg BID x5 days, Metronidazole 500 mg TID x5 days Were you told to hold any medications? No Were any of your medications discontinued? Yes If yes, what are those medications? Prednisone, doxycycline, aspirin Do you have any questions about getting or taking your medications? No Your discharge instructions/After visit Summary (AVS) are important in guiding you through the recovery process. Is there anything I might help you understand? No Do you have all the necessary equipment and supplies at home? Yes Medical records from recent hospitalization: [facility] Lukas Bhatt MD 09/05/2023 9:59 AM Signed Reviewed. Can we send letter for follow up OV? Marge Barrios LPN 10/05/2023 2:09 PM Signed Letter sent to contact office to schedule follow up visit. Allergies As of Date: 09/05/2023 (No Known Allergies) Date Reviewed: 06/01/2023 Reviewed by: Dorinda Garcia LPN - Fully Assessed Reason for Visit: Transition Of Care [4074] Primary Visit Diagnosis:Colitis [K52.9] Prescriptions as of 10/05/2023 - levothyroxine (SYNTHROID) 50 mcg tablet Take 1 tablet by mouth once daily. Take on empty stomach. For Thyroid. - lisinopril (ZESTRIL) 10 mg tablet Take 1 tablet by mouth once daily. - hydroCHLOROthiazide 25 mg tablet Take 1 tablet by mouth once daily. - atorvastatin (LIPITOR) 40 mg tablet Take 1 tablet by mouth daily at bedtime. For cholesterol. - amitriptyline (ELAVIL) 25 mg tablet Take 1 tablet by mouth daily at bedtime. - albuterol HFA (PROVENTIL HFA, VENTOLIN HFA) 90 mcg/actuation inhaler Inhale 2 Puffs as instructed every 4 hours as needed for wheezing/shortness of breath. Problem List As Of Date 09/05/2023 Noted Resolved Obesity (BMI 35.0-39.9 without comorbidity) [E6* Hypertension [I10] Tobacco use [Z72.0] 08/21/2018 Chronic bilateral low back pain with right-side*08/30/2018 Hyperlipidemia [E78.5] 06/22/2019 Pure hypercholesterolemia [E78.00] 06/22/2019 Premature atrial complex [I49.1] 04/02/2022 Obesity, Class III, BMI >= 40 [E66.01] 06/01/2023 Encounter Status:Closed by AMIRA LÓPEZ on 10/05/23[facility]10-[facility] History of Present illness Narrative* Marge Barrios LPN - 09/05/2023 1:02 PM EDT Letter sent to contact office to schedule follow up visit. * Lukas Jernigan MD - 09/05/2023 9:59 AM EDT Reviewed. Can we send letter for follow up OV? * Amira López MA - 09/05/2023 9:24 AM EDT TRANSITION CARE MANAGEMENT (TCM) INITIAL CONTACT [employer] Outreach Provider Action/FYI: - Pt admitted to [facility] 08/30/23 - 09/01/23 for colitis - Underwent colonoscopy for GI bleed shoing ischemic colitis - Underwent EGD showing multiple gastric ulcers, esophagitis, and duodenal ulcers - Unable to reach patient via phone, number disconnected Initial contact with patient post discharge, spoke to unable to reach patient. Patient identified by name and . TRANSITION CARE MANAGEMENT INITIAL OUTREACH DOCUMENTATION: Date of Outreach: 09/05/2023 Outreach Attempt 1: Contact Not Made Date of Discharge 09/01/2023 Some recent data might be hidden SUMMARY: -Pt discharged from [facility] on 09/01/23. -Admitted for: Acute Colitis Do you have a hospital follow up appointment with your PCP? Appointment on with . No. Assist patient with follow-up appointment within 1-14 calendar days from discharge date. If patient prefers not to schedule follow-up appointment at this time, notify PCP. MEDICATIONS: Many patients have questions or concerns about their medications once they are home. Were you prescribed any new medications? Yes If yes, what are those medications? Sucralfate 1 gram tablet TIDAC; pantoprazole 40 mg BID, ciprofloxacin 500 mg BID x5 days, Metronidazole 500 mg TID x5 days Were you told to hold any medications? No Were any of your medications discontinued? Yes If yes, what are those medications? Prednisone, doxycycline, aspirin Do you have any questions about getting or taking your medications? No Your discharge instructions/After visit Summary (AVS) are important in guiding you through the recovery process. Is there anything I might help you understand? No Do you have all the necessary equipment and supplies at home? Yes Medical records from recent [facility] NoteHNO ID: [id number] Author: Lukas Jernigan MD Service: ? Author Type: Physician Type: Progress Notes Filed: 09/05/2023 9:59 AM Note Text: Reviewed. Can we send letter for follow up OV?[facility] 09-05-2023 NoteHNO ID: [id number] Author: Amira López MA Service: ? Author Type: [employer] Type: Progress Notes Filed: 10/05/2023 2:09 PM Note Text: TRANSITION CARE MANAGEMENT (TCM) INITIAL CONTACT [employer] Outreach Provider Action/FYI: - Pt admitted to [facility] 08/30/23 - 09/01/23 for colitis - Underwent colonoscopy for GI bleed shoing ischemic colitis - Underwent EGD showing multiple gastric ulcers, esophagitis, and duodenal ulcers - Unable to reach patient via phone, number disconnected Initial contact with patient post discharge, spoke to unable to reach patient. Patient identified by name and . TRANSITION CARE MANAGEMENT INITIAL OUTREACH DOCUMENTATION: Date of Outreach: 09/05/2023 Outreach Attempt 1: Contact Not Made Date of Discharge 09/01/2023 Some recent data might be hidden SUMMARY: -Pt discharged from [facility] on 09/01/23. -Admitted for: Acute Colitis Do you have a hospital follow up appointment with your PCP? Appointment on with . No. Assist patient with follow-up appointment within 1-14 calendar days from discharge date. If patient prefers not to schedule follow-up appointment at this time, notify PCP. MEDICATIONS: Many patients have questions or concerns about their medications once they are home. Were you prescribed any new medications? Yes If yes, what are those medications? Sucralfate 1 gram tablet TIDAC; pantoprazole 40 mg BID, ciprofloxacin 500 mg BID x5 days, Metronidazole 500 mg TID x5 days Were you told to hold any medications? No Were any of your medications discontinued? Yes If yes, what are those medications? Prednisone, doxycycline, aspirin Do you have any questions about getting or taking your medications? No Your discharge instructions/After visit Summary (AVS) are important in guiding you through the recovery process. Is there anything I might help you understand? No Do you have all the necessary equipment and supplies at home? Yes Medical records from recent hospitalization: [facility]10-05-2023 Miscellaneous Notes* Telephone Encounter - Lukas Jernigan MD - 09/01/2023 9:37 AM EDT Thank you. Will f/u 1-2 weeks after discharge. * Telephone Encounter - Talon Reid RN - 09/01/2023 9:18 AM EDT Iam Kent Senior Manufacturing Engineer- phoned to let pcp know, patient was admitted to [facility] on 08-30-23 with gastroenteritis and colitis. Patient is still inpatient this morning with possible discharge today. [facility] NotePatient Outreach (NETNAV) ANASTASIA BUI ([id number]) 1955 F Date Time Provider Department 08/10/23 ROSSY BRIDGES During your visit today, we recorded the following information about you: Rossy Bridges MA 08/10/2023 2:43 PM Signed POPULATION HEALTH NAVIGATION OUTREACH Action/ Mammogram ordered 02/02/2023 FOBT 06/01/2023 Spoke with patient - Declines mammogram and flu, states she still has FOBT and will complete soon. Patient Identified by Name and : YES, via phone Outreach Outcome/Action Spoke to patient / parent / legal guardian: Patient declined Did you use a PCP flex slot to schedule this appointment? N/A Reason for Outreach Care Gap or Scheduling/Wellness visits Payer: Payor: [employer] MEDICARE / Plan: [employer] / Product Type: HMO / Care Gap Reviewed:: Breast Cancer screening Colorectal Cancer Screening Flu Vaccine Reminder: Reminder note to check Health Maintenance for items below Health Maintenance items due: Colorectal Cancer Screening due on 12/25/2020 Mammogram Screening due on 01/01/2021 Advance Directive Discussion Never done Depression Assessment Never done Influenza Vaccine(1) due on 07/29/2023 Navigation Signature: Rossy Griggs MA August 10, 2023 8:30 AM Allergies As of Date: 08/10/2023 (No Known Allergies) Date Reviewed: 06/01/2023 Reviewed by: Dorinda Garcia LPN - Fully Assessed Reason for Visit: Population Health Navigation Outreach [3910] Cmt: [employer] Care Gaps Prescriptions as of 08/10/2023 - levothyroxine (SYNTHROID) 50 mcg tablet Take 1 tablet by mouth once daily. Take on empty stomach. For Thyroid. - lisinopril (ZESTRIL) 10 mg tablet Take 1 tablet by mouth once daily. - hydroCHLOROthiazide 25 mg tablet Take 1 tablet by mouth once daily. - atorvastatin (LIPITOR) 40 mg tablet Take 1 tablet by mouth daily at bedtime. For cholesterol. - amitriptyline (ELAVIL) 25 mg tablet Take 1 tablet by mouth daily at bedtime. - albuterol HFA (PROVENTIL HFA, VENTOLIN HFA) 90 mcg/actuation inhaler Inhale 2 Puffs as instructed every 4 hours as needed for wheezing/shortness of breath. Problem List As Of Date 08/10/2023 Noted Resolved Obesity (BMI 35.0-39.9 without comorbidity) [E6* Hypertension [I10] Tobacco use [Z72.0] 08/21/2018 Chronic bilateral low back pain with right-side*08/30/2018 Hyperlipidemia [E78.5] 06/22/2019 Pure hypercholesterolemia [E78.00] 06/22/2019 Premature atrial complex [I49.1] 04/02/2022 Obesity, Class III, BMI >= 40 [E66.01] 06/01/2023 Encounter Status:Closed by ROSSY BRIDGES on 08/10/23[facility]09-13-2023 NoteHNO ID: [id number] Author: Rossy Bridges MA Service: ? Author Type: [employer] Type: Progress Notes Filed: 08/10/2023 2:43 PM Note Text: POPULATION HEALTH NAVIGATION OUTREACH Action/FYI Mammogram ordered 02/02/2023 FOBT 06/01/2023 Spoke with patient - Declines mammogram and flu, states she still has FOBT and will complete soon. Patient Identified by Name and : YES, via phone Outreach Outcome/Action Spoke to patient / parent / legal guardian: Patient declined Did you use a PCP flex slot to schedule this appointment? N/A Reason for Outreach Care Gap or Scheduling/Wellness visits Payer: Payor: [employer] MEDICARE / Plan: [employer] / Product Type: HMO / Care Gap Reviewed:: Breast Cancer screening Colorectal Cancer Screening Flu Vaccine Reminder: Reminder note to check Health Maintenance for items below Health Maintenance items due: Colorectal Cancer Screening due on 12/25/2020 Mammogram Screening due on 01/01/2021 Advance Directive Discussion Never done Depression Assessment Never done Influenza Vaccine(1) due on 07/29/2023 Navigation Signature: Rossy Griggs MA August 10, 2023 8:30 [facility]09-13-2023 History of Present illness Narrative* Rossy Bridges MA - 08/10/2023 8:30 AM EDT POPULATION HEALTH NAVIGATION OUTREACH Action/FYI Mammogram ordered 02/02/2023 FOBT 06/01/2023 Spoke with patient - Declines mammogram and flu, states she still has FOBT and will complete soon. Patient Identified by Name and : YES, via phone Outreach Outcome/Action Spoke to patient / parent / legal guardian: Patient declined Did you use a PCP flex slot to schedule this appointment? N/A Reason for Outreach Care Gap or Scheduling/Wellness visits Payer: Payor: [employer] MEDICARE / Plan: [employer] GOLD PLUS / Product Type: HMO / Care Gap Reviewed:: Breast Cancer screening Colorectal Cancer Screening Flu Vaccine Reminder: Reminder note to check Health Maintenance for items below Health Maintenance items due: Colorectal Cancer Screening due on 12/25/2020 Mammogram Screening due on 01/01/2021 Advance Directive Discussion Never done Depression Assessment Never done Influenza Vaccine(1) due on 07/29/2023 Navigation Signature: Rossy Griggs MA August 10, 2023 8:30 AM documented in this encounterTri[facility]23 NoteHNO ID: [id number] Author: Ada Alonzo APRN.SLAB PULLER Service: ? Author Type: Nurse Practitioner Type: Progress Notes Filed: 06/01/2023 1:33 PM Note Text: 06/01/2023 Patient presents with: F/U 6 Month SUBJECTIVE: This is a 68 year old that is here today for Above Complaints. Since last office visits has been in good health without ER visits or hospitalizations. HTN: Patient is compliant with meds Yes Monitors bp at home: Yes. Denies side effects: Yes. Chest pain: No. Dyspnea: No. Edema: No. Palpitations: No. Syncope: No. Headache: No. Dizziness: No. HYPOTHYROIDISM: taking synthroid s prescribed HYPERLIPIDEMIA: Patient is taking medications: Yes. Patient is watching diet: Yes. Patient denies myalgias: Yes. Patient denies gi upset: Yes Still smoking. Trying to stop completely. Smokes up to eight cigarettes a day PAST MEDICAL HISTORY Diagnosis Date Anxiety and depression Cataracts, bilateral s/p surgical removal Hyperlipidemia Hypertension Morbid obesity (HCC) Osteopenia Premature atrial complex Tobacco use ALLERGIES Patient has no known allergies. MEDICATIONS Current Outpatient Medications Medication Sig lisinopril (ZESTRIL, PRINIVIL) 10 mg tablet Take 1 tablet by mouth once daily. hydroCHLOROthiazide (HYDRODIURIL, ESIDRIX) 25 mg tablet Take 1 tablet by mouth once daily. levothyroxine (SYNTHROID) 50 mcg tablet Take 1 tablet by mouth once daily. Take on empty stomach. For Thyroid. atorvastatin (LIPITOR) 40 mg tablet Take 1 tablet by mouth daily at bedtime. For cholesterol. amitriptyline (ELAVIL) 25 mg tablet Take 1 tablet by mouth daily at bedtime. albuterol HFA (PROVENTIL HFA, VENTOLIN HFA) 90 mcg/actuation inhaler Inhale 2 Puffs as instructed every 4 hours as needed for wheezing/shortness of breath. No current facility-administered medications for this visit. Medications and allergies reviewed by this provider. SOCIAL HISTORY Social History Tobacco Use Smoking status: Some Days Packs/day: 0.25 Years: 50.00 Pack years: 12.50 Types: Cigarettes Smokeless tobacco: Never Tobacco comments: Quit 2020 Substance Use Topics Alcohol use: Not Currently Alcohol/week: 5.0 standard drinks Types: 2 Cans of Beer (12oz) per week Drug use: No REVIEW OF SYSTEMS All other reviewed and negative other than HPI. OBJECTIVE: BP 108/78 Pulse 63 Resp 16 Wt 103.3 kg (227 lb 12.8 oz) SpO2 96% BMI 41.67 kg/m? . Vital signs reviewed by this provider. APPEARANCE Well appearing, alert, in no acute distress, well-hydrated, well nourished. EYES conjunctiva and sclera normal. EARS External ears normal, canals clear NECK Supple, no adenopathy; thyroid symmetric, normal size, no bruits HEART RRR with normal S1 and S2, no murmurs, no gallops, no JVD appreciated LUNG clear to auscultation. No wheezes, rhonchi or rales EXTREMITIES Extremities normal, No deformities, No skin discoloration, No edema, and Normal pulses bilaterally. Component Latest Ref Rng AND Units 04/02/2022 Protein, Total 6.3 - 8.0 g/dL 7.2 Albumin 3.9 - 4.9 g/dL 4.1 Calcium 8.5 - 10.2 mg/dL 9.4 Bilirubin, Total 0.2 - 1.3 mg/dL 1.0 Alkaline Phosphatase 34 - 123 U/L 72 AST 13 - 35 U/L 44 (H) ALT 7 - 38 U/L 33 Glucose 74 - 99 mg/dL 160 (H) BUN 7 - 21 mg/dL 13 Creatinine 0.58 - 0.96 mg/dL 1.15 (H) Sodium 136 - 144 mmol/L 137 Potassium 3.7 - 5.1 mmol/L 3.6 (L) Chloride 97 - 105 mmol/L 99 CO2 22 - 30 mmol/L 26 Anion Gap 9 - 18 mmol/L 12 eGFR >=60 mL/min/1.73mA? 52 (L) Total Cholesterol, Nonfasting <200 mg/dL 199 Triglycerides, Nonfasting <150 mg/dL 113 HDL Cholesterol, Nonfasting >39 mg/dL 41 LDL Cholesterol, Nonfasting <100 mg/dL 135 (H) Non HDL Cholesterol, Nonfasting <130 mg/dL 158 (H) VLDL Cholesterol, Nonfasting <30 mg/dL 23 Total Chol/HDL Ratio, Nonfasting <5.10 mg/dL 4.85 LDL/HDL Ratio, Nonfasting <2.54 mg/dL 3.29 (H) TSH 0.270 - 4.200 mIU/L 8.120 (H) Free T4 0.9 - 1.7 ng/dL 0.8 (L) Microsomal Antibody <5.6 IU/mL 800.5 (H) COLORECTAL CANCER SCREENING due on 12/25/2020 MAMMOGRAM due on 01/01/2021 ADVANCE DIRECTIVE DISCUSSION Never done DEPRESSION ASSESSMENT Never done SHINGRIX VACCINE(1 of 2) due on 12/02/2023 COVID-19 VACCINE(1) due on 12/02/2023 PNEUMOCOCCAL: 65+(3 - PPSV23 if available, else PCV20) due on 12/02/2023 INFLUENZA(1) due on 07/29/2023 ANNUAL PCP TEAM CHRONIC DISEASE VISIT due on 12/02/2023 BP CONTROLLED (<130/80) due on 06/01/2024 DIABETES SCREEN due on 04/02/2025 LIPID SCREEN due on 04/02/2027 DTAP,TDAP,TD(2 - Td or Tdap) due on 12/01/2027 BONE DENSITY Completed HEPATITIS C SCREENING Completed ASSESSMENT/PLAN: 1. Essential hypertension - ICD9: 401.9, ICD10: I10 (primary diagnosis) - Controlled - Continue current medications - Recommend home blood pressure monitoring, to bring results to next visit - Encouraged sodium restriction, DASH or Mediterranean diet - Recommend regular aerobic ex (more content not included)...[facility]07-05-[facility]23 History of Present illness Narrative* Ada Alonzo, JEREMY.SLAB PULLER - 06/01/2023 12:54 PM EDT 06/01/2023 Patient presents with: F/U 6 Month SUBJECTIVE: This is a 68 year old that is here today for Above Complaints. Since last office visitshas been in good health without ER visits or hospitalizations. HTN: Patient is compliant with meds Yes Monitors bp at home: Yes. Denies side effects: Yes. Chest pain: No. Dyspnea: No. Edema: No. Palpitations: No. Syncope: No. Headache: No. Dizziness: No. HYPOTHYROIDISM: taking synthroid s prescribed HYPERLIPIDEMIA: Patient is taking medications: Yes. Patient is watching diet: Yes. Patient denies myalgias: Yes. Patient denies gi upset: Yes Still smoking. Trying to stop completely. Smokes up to eight cigarettes a day PAST MEDICAL HISTORY Diagnosis Date Anxiety and depression Cataracts, bilateral s/p surgical removal Hyperlipidemia Hypertension Morbid obesity (HCC) Osteopenia Premature atrial complex Tobacco use ALLERGIES Patient has no known allergies. MEDICATIONS Current Outpatient Medications Medication Sig lisinopril (ZESTRIL, PRINIVIL) 10 mg tablet Take 1 tablet by mouth once daily. hydroCHLOROthiazide (HYDRODIURIL, ESIDRIX) 25 mg tablet Take 1 tablet by mouth once daily. levothyroxine (SYNTHROID) 50 mcg tablet Take 1 tablet by mouth once daily. Take on empty stomach. For Thyroid. atorvastatin (LIPITOR) 40 mg tablet Take 1 tablet by mouth daily at bedtime. For cholesterol. amitriptyline (ELAVIL) 25 mg tablet Take 1 tablet by mouth daily at bedtime. albuterol HFA (PROVENTIL HFA, VENTOLIN HFA) 90 mcg/actuation inhaler Inhale 2 Puffs as instructed every 4 hours as needed for wheezing/shortness of breath. No current facility-administered medications for this visit. Medications and allergies reviewed by this provider. SOCIAL HISTORY Social History Tobacco Use Smoking status: Some Days Packs/day: 0.25 Years: 50.00 Pack years: 12.50 Types: Cigarettes Smokeless tobacco: Never Tobacco comments: Quit 2020 Substance Use Topics Alcohol use: Not Currently Alcohol/week: 5.0 standard drinks Types: 2 Cans of Beer (12oz) per week Drug use: No REVIEW OF SYSTEMS All other reviewed and negative other than HPI. OBJECTIVE: BP 108/78 Pulse 63 Resp 16 Wt 103.3 kg (227 lb 12.8 oz) SpO2 96% BMI 41.67 kg/m . Vital signs reviewed by this provider. APPEARANCE Well appearing, alert, in no acute distress, well-hydrated, well nourished. EYES conjunctiva and sclera normal. EARS External ears normal, canals clear NECK Supple, no adenopathy; thyroid symmetric, normal size, no bruits HEART RRR with normal S1 and S2, no murmurs, no gallops, no JVD appreciated LUNG clear to auscultation. No wheezes, rhonchi or rales EXTREMITIES Extremities normal, No deformities, No skin discoloration, No edema, and Normal pulses bilaterally. Component Latest Ref Rng & Units 04/02/2022 Protein, Total 6.3 - 8.0 g/dL 7.2 Albumin 3.9 - 4.9 g/dL 4.1 Calcium 8.5 - 10.2 mg/dL 9.4 Bilirubin, Total 0.2 - 1.3 mg/dL 1.0 Alkaline Phosphatase 34 - 123 U/L 72 AST 13 - 35 U/L 44 (H) ALT 7 - 38 U/L 33 Glucose 74 - 99 mg/dL 160 (H) BUN 7 - 21 mg/dL 13 Creatinine 0.58 - 0.96 mg/dL 1.15 (H) Sodium 136 - 144 mmol/L 137 Potassium 3.7 - 5.1 mmol/L 3.6 (L) Chloride 97 - 105 mmol/L 99 CO2 22 - 30 mmol/L 26 Anion Gap 9 - 18 mmol/L 12 eGFR >=60 mL/min/1.73m 52 (L) Total Cholesterol, Nonfasting <200 mg/dL 199 Triglycerides, Nonfasting <150 mg/dL 113 HDL Cholesterol, Nonfasting >39 mg/dL 41 LDL Cholesterol, Nonfasting <100 mg/dL 135 (H) Non HDL Cholesterol, Nonfasting <130 mg/dL 158 (H) VLDL Cholesterol, Nonfasting <30 mg/dL 23 Total Chol/HDL Ratio, Nonfasting <5.10 mg/dL 4.85 LDL/HDL Ratio, Nonfasting <2.54 mg/dL 3.29 (H) TSH 0.270 - 4.200 mIU/L 8.120 (H) Free T4 0.9 - 1.7 ng/dL 0.8 (L) Microsomal Antibody <5.6 IU/mL 800.5 (H) COLORECTAL CANCER SCREENING due on 12/25/2020 MAMMOGRAM due on 01/01/2021 ADVANCE DIRECTIVE DISCUSSION Never done DEPRESSION ASSESSMENT Never done SHINGRIX VACCINE(1 of 2) due on 12/02/2023 COVID-19 VACCINE(1) due on 12/02/2023 PNEUMOCOCCAL: 65+(3 - PPSV23 if available, else PCV20) due on 12/02/2023 INFLUENZA(1) due on 07/29/2023 ANNUAL PCP TEAM CHRONIC DISEASE VISIT due on 12/02/2023 BP CONTROLLED (<130/80) due on 06/01/2024 DIABETES SCREEN due on 04/02/2025 LIPID SCREEN due on 04/02/2027 DTAP,TDAP,TD(2 - Td or Tdap) due on 12/01/2027 BONE DENSITY Completed HEPATITIS C SCREENING Completed ASSESSMENT/PLAN: 1. Essential hypertension - ICD9: 401.9, ICD10: I10 (primary diagnosis) - Controlled - Continue current medications - Recommend home blood pressure monitoring, to bring results to next visit - Encouraged sodium restriction, DASH or Mediterranean diet - Recommend regular aerobic exercise - Discussed need for and benefit of weight loss. BMI 41.66 kg/(m^2) - Smoking cessation encouraged; discussed risks to health and quitting strategies. Patient is contemplative - Follow up in 6 months for hypertension visit - LISINOPRIL 10 MG TABLET - HYDROCHLOROTHIAZIDE 25 MG TABLET - COMP METABOLIC PANEL 2. Hypothyroidism, acquired - ICD9: 244.9, ICD10: E03.9 - Instructed patient on importance of taking on an empty stomach either first thing in the morning or at bedtime. - continue current dose of Synthroid 0.050 mg - Follow up in 6 months - LEVOTHYROXINE 50 MCG TABLET - TSH BLD 3. Pure hypercholesterolemia - ICD9: 272.0, ICD10: E78.00 - ATORVASTATIN 40 MG TABLET - LIPID PANEL BASIC 4. Prediabetes - ICD9: 790.29, ICD10: R73.03 - HGB A1C 5. Encounter for screening fecal occult blood testing - ICD9: V76.51, ICD10: Z12.11 - FECAL OCCULT BLOOD TEST 6. Obesity, Class III, BMI >= 40 - ICD9: 278.01, ICD10: E66.01 Weight increasing - Behavioral intervention - Lengthy discussion in office today regarding diet and exercise. Discussed use of small plate to eat meals from, drink 1 glass of water 10-15 minutes prior to eating meal, drink 8 glasses of water daily, eat fresh fruit and vegetable during meal first then lean protein such as grilled/baked chicken breast or fish, limit carbohydrate intake (less pasta, breads, rice and snack foods) as well as limiting sugars (desserts etc). Important to count / track your calories and exercise as well. 7. Tobacco use - ICD9: 305.1, ICD10: Z72.0 - Cessation encouraged. - Physiologic and physical aspects of tobacco addiction as well as strategies for quitting were discussed. - Counseling was given focusing on the harmful effects of this addiction especially given the patient's medical condition(s) which will be worsened because of the chemicals in tobacco. Ada Alonzo APRN.KEILA Prescription instructions reviewed with patient as applicable. Patient advised if symptoms do not improve or if symptoms worsen sooner, to contact their primary care physician. Potential red flag symptoms discussed with the patient. Reviewed appropriate action plan to take if red flag symptoms occur. Patient agreeable to treatment plan. I spent a total of 25 minutes on the date of the service which included preparing to see the patient, [id number] patient care, completing clinical documentation, obtaining and/or reviewing separately obtained history, performing a medically appropriate examination, counseling and educating the pat ient/family/caregiver, and ordering medications, tests, or procedures. documented in this encounterTrihealth [facility]05-25-[facility]23 NoteHNO ID: [id number] Author: RT Nathan(Jose Angel) Service: Nuclear Medicine Author Type: Technologist Type: Progress Notes Filed: 04/21/2023 11:18 AM Note Text: Radiology Service Progress Note PATIENT NAME: Anastasia Bui DATE OF SERVICE: April 21, 2023 TIME: 11:10 AM PATIENT IDENTITY VERIFICATION COMPLETED USING TWO (2) IDENTIFIERS: Name and Date of confirmed by patient verbally. FALL SCREENING: Has the patient had 2 falls in the last year or 1 fall with injury or currently using an Ambulatory Assistive Device (Walker, Cane, Wheelchair, Crutches, etc.)? No PATIENT GENDER DATA: Female. status: : No status: NO. PATIENT RELEVANT IMPLANT DATA REVIEWED: Not Applicable RADIOLOGY DEPARTMENT: General X-ray: Exam(s) Completed: Chest X-Ray PERIPHERAL IV DATA: Not applicable SIGNED BY: RT Nathan(Jose Angel) April 21, 2023 11:10 [facility]05-25-2023 NoteHNO ID: [id number] Author: CNIDY Li Service: ? Author Type: Physician Subway Guard Type: Progress Notes Filed: 04/21/2023 11:36 AM Note Text: This note was created using NoteWriter. Subjective Anastasia Bui is a 68 year old female. HPI 68-year-old female presents for cough. Patient states she has had a cough for a little over a week. She has had some nasal congestion. She states occasionally she coughs up some mucus. She denies any chest pain or shortness of breath. She denies history of COPD, but is a smoker. She smokes half pack per day for 50 years. She denies being on any inhalers at home. No sick contacts. No fevers. She states she has a sore throat from coughing so much. No other complaints. PAST MEDICAL HISTORY Diagnosis Date Anxiety and depression Cataracts, bilateral s/p surgical removal Hyperlipidemia Hypertension Morbid obesity (HCC) Osteopenia Premature atrial complex Tobacco use PAST SURGICAL HISTORY Procedure Laterality Date DELIVERY ONLY 1989 COLONOSCOPY 09/01/12 XCAPSL CTRC RMVL INSJ IO LENS PROSTH CPLX WO ECP 02/17/12 03/01/12 bilateral ALLERGIES Patient has no known allergies. MEDICATIONS levothyroxine (SYNTHROID) 50 mcg tablet Take 1 tablet by mouth once daily. Take on empty stomach. For Thyroid. atorvastatin (LIPITOR) 40 mg tablet Take 1 tablet by mouth daily at bedtime. For cholesterol. amitriptyline (ELAVIL) 25 mg tablet Take 1 tablet by mouth daily at bedtime. lisinopril (ZESTRIL, PRINIVIL) 10 mg tablet Take 1 tablet by mouth once daily. hydroCHLOROthiazide (HYDRODIURIL, ESIDRIX) 25 mg tablet Take 1 tablet by mouth once daily. FAMILY HISTORY Problem Relation Age of Onset Stroke Father Diabetes Father Hypertension Father Alcohol/Drug Father Cancer Mother ovarian Coronary Artery Disease Sister DC Arthritis Brother Social History Tobacco Use Smoking status: Some Days Packs/day: 0.25 Years: 50.00 Pack years: 12.50 Types: Cigarettes Smokeless tobacco: Never Tobacco comments: Quit 2020 Substance Use Topics Alcohol use: Not Currently Alcohol/week: 5.0 standard drinks Types: 2 Cans of Beer (12oz) per week Drug use: No Review of Systems Constitutional: Negative for chills and fever. HENT: Positive for congestion and sore throat. Negative for ear pain. Respiratory: Positive for cough. Negative for shortness of breath. Cardiovascular: Negative for chest pain. Gastrointestinal: Negative for diarrhea and vomiting. Objective BP 128/88 Pulse 93 Temp 36.6 ?C (97.9 ?F) Resp 20 Wt 101.9 kg (224 lb 9.6 oz) SpO2 94% BMI 41.08 kg/m? Physical Exam Vitals and nursing note reviewed. Constitutional: General: She is not in acute distress. Appearance: Normal appearance. She is not toxic-appearing. HENT: Nose: Nose normal. Mouth/Throat: Mouth: Mucous membranes are moist. Pharynx: No oropharyngeal exudate or posterior oropharyngeal erythema. Eyes: Conjunctiva/sclera: Conjunctivae normal. Cardiovascular: Rate and Rhythm: Normal rate and regular rhythm. Pulmonary: Effort: Pulmonary effort is normal. Breath sounds: Wheezing (mild expiratory) present. Neurological: Mental Status: She is alert. Assessment and Plan ASSESSMENT/PLAN: 1. Sinobronchitis - ICD9: 473.9, 490, ICD10: J32.9, J40 (primary diagnosis) - Will begin treatment with Doxycycline -Rx for prednisone, albuterol inhaler. - Supportive care with plenty of fluids, rest, and analgesia prn. 2. Acute cough - ICD9: 786.2, ICD10: R05.1 - XR CHEST 2V FRONTAL/LAT -Chest x-ray no acute findings. -Declines COVID/flu swab. 3. Wheezing - ICD9: 786.07, ICD10: R06.2 -Suspect component of COPD, smoker for 50+ years. No official diagnosis. -Chest x-ray negative, -Recommend follow-up with PCP. -Rx for albuterol inhaler, prednisone, doxycycline. Diagnosis and treatment plan were discussed and questions were answered to the patient's satisfaction. Pt acknowledged understanding of concepts and follow up plan. Specific signs and symptoms that would indicate the need for higher level of care were discussed in detail warranting prompt ER evaluation. Morgan Hayes, [facility]03-27-2023 Miscellaneous Notes* Telephone Encounter - Marge Barrios LPN - 02/21/2023 12:52 PM EDT Phoned patient and updated her with provider's message. She voiced understanding. * Telephone Encounter - Lukas Jernigan MD - 02/21/2023 10:22 AM EDT It does not look like we have seen her for back pain since 2019 and at that time she stated her pain had resolved with PT. Unfortunately, I will not be able to provide her a letter for this. * Telephone Encounter - Siri Hurst LPN - 02/21/2023 10:14 AM EDT Pt called to check status. Needs a response today has to turn in to the courts. Please call pt back. Siri Hurst LPN * Telephone Encounter - Radha Phoenix LPN - 02/18/2023 2:53 PM EDT Patient calling she had just received Jury duty letter today. Patient said she can not do jury dutywith her back issues. Patient said she has 5 days to have letter saying she can not do jury duty returned to the court. Patient would like called when she can seed cone picker letter. Please advise Please advise documented in this encounterTrihealth [facility]03-08-2023 NotePatient Outreach (INTMMN) ANASTASIA BUI ([id number]) 1955 F Date Time Provider Department 02/02/23 LUKAS JERNIGAN During your visit today, we recorded the following information about you: Allergies As of Date: 02/02/2023 (No Known Allergies) Date Reviewed: 12/02/2022 Reviewed by: Marge Barrios LPN - Fully Assessed Visit Diagnosis:Encounter for screening mammogram for breast cancer [Z12.31] Order(s):[facility] SCREENING [[id number]] Order #: [id number] FUTURE Prescriptions as of 02/07/2023 - lisinopril (ZESTRIL, PRINIVIL) 10 mg tablet Take 1 tablet by mouth once daily. - hydroCHLOROthiazide (HYDRODIURIL, ESIDRIX) 25 mg tablet Take 1 tablet by mouth once daily. - levothyroxine (SYNTHROID) 50 mcg tablet Take 1 tablet by mouth once daily. Take on empty stomach. For Thyroid. - atorvastatin (LIPITOR) 40 mg tablet Take 1 tablet by mouth daily at bedtime. For cholesterol. - amitriptyline (ELAVIL) 25 mg tablet Take 1 tablet by mouth daily at bedtime. Problem List As Of Date 02/02/2023 Noted Resolved Obesity (BMI 35.0-39.9 without comorbidity) [E6* Hypertension [I10] Tobacco use [Z72.0] 08/21/2018 Chronic bilateral low back pain with right-side*08/30/2018 Hyperlipidemia [E78.5] 06/22/2019 Pure hypercholesterolemia [E78.00] 06/22/2019 Premature atrial complex [I49.1] 04/02/2022 Encounter Status:Closed by VERA HANLEY on 02/07/23[facility] 01-28-2023 NotePatient Outreach (NETNAV) ANASTASIA BUI ([id number]) 1955 F Date Time Provider Department 01/28/23 ROSSY BRIDEGS During your visit today, we recorded the following information about you: Rossy Griggs MA 01/28/2023 11:14 AM Signed POPULATION HEALTH NAVIGATION OUTREACH Action/FYI Spoke with patient - declined HM due at this time Patient Identified by Name and : YES, via phone Outreach Outcome/Action Spoke to patient / parent / legal guardian: Patient declined Did you use a PCP flex slot to schedule this appointment? N/A Reason for Outreach Care Gap or Scheduling/Wellness visits Payer: Payor: [employer] MEDICARE / Plan: [employer] PLUS / Product Type: HMO / Care Gap Reviewed:: Breast Cancer screening Colorectal Cancer Screening Reminder: Reminder note to check Health Maintenance for items below Health Maintenance items due: COLORECTAL CANCER SCREENING due on 12/25/2020 MAMMOGRAM due on 01/01/2021 ADVANCE DIRECTIVE DISCUSSION Never done DEPRESSION ASSESSMENT Never done Navigation Signature: Rossy Griggs MA January 28, 2023 11:09 AM Allergies As of Date: 01/28/2023 (No Known Allergies) Date Reviewed: 12/02/2022 Reviewed by: Marge Barrios LPN - Fully Assessed Reason for Visit: Population Health Navigation Outreach [3910] Cmt: Human Care Gaps Prescriptions as of 01/28/2023 - lisinopril (ZESTRIL, PRINIVIL) 10 mg tablet Take 1 tablet by mouth once daily. - hydroCHLOROthiazide (HYDRODIURIL, ESIDRIX) 25 mg tablet Take 1 tablet by mouth once daily. - levothyroxine (SYNTHROID) 50 mcg tablet Take 1 tablet by mouth once daily. Take on empty stomach. For Thyroid. - atorvastatin (LIPITOR) 40 mg tablet Take 1 tablet by mouth daily at bedtime. For cholesterol. - amitriptyline (ELAVIL) 25 mg tablet Take 1 tablet by mouth daily at bedtime. Problem List As Of Date 01/28/2023 Noted Resolved Obesity (BMI 35.0-39.9 without comorbidity) [E6* Hypertension [I10] Tobacco use [Z72.0] 08/21/2018 Chronic bilateral low back pain with right-side*08/30/2018 Hyperlipidemia [E78.5] 06/22/2019 Pure hypercholesterolemia [E78.00] 06/22/2019 Premature atrial complex [I49.1] 04/02/2022 Encounter Status:Closed by ROSSY BRIDGES on 01/28/23[facility]03-03-2023 NoteHNO ID: [id number] Author: Rossy Griggs MA Service: ? Author Type: Cook House Laborer Type: Progress Notes Filed: 01/28/2023 11:14 AM Note Text: POPULATION HEALTH NAVIGATION OUTREACH Action/FYI Spoke with patient - declined HM due at this time Patient Identified by Name and : YES, via phone Outreach Outcome/Action Spoke to patient / parent / legal guardian: Patient declined Did you use a PCP flex slot to schedule this appointment? N/A Reason for Outreach Care Gap or Scheduling/Wellness visits Payer: Payor: HU[employer] MEDICARE / Plan: [employer] GOLD PLUS / Product Type: HMO / Care Gap Reviewed:: Breast Cancer screening Colorectal Cancer Screening Reminder: Reminder note to check Health Maintenance for items below Health Maintenance items due: COLORECTAL CANCER SCREENING due on 12/25/2020 MAMMOGRAM due on 01/01/2021 ADVANCE DIRECTIVE DISCUSSION Never done DEPRESSION ASSESSMENT Never done Navigation Signature: Rossy Griggs MA January 28, 2023 11:09 [facility]03-03-2023 History of Present illness Narrative* Rossy Griggs MA - 01/28/2023 11:09 AM EST POPULATION HEALTH NAVIGATION OUTREACH Action/FYI Spoke with patient - declined HM due at this time Patient Identified by Name and : YES, via phone Outreach Outcome/Action Spoke to patient / parent / legal guardian: Patient declined Did you use a PCP flex slot to schedule this appointment? N/A Reason for Outreach Care Gap or Scheduling/Wellness visits Payer: Payor: HU[employer]NA MEDICARE / Plan: [employer]NA GOLD PLUS / Product Type: HMO / Care Gap Reviewed:: Breast Cancer screening Colorectal Cancer Screening Reminder: Reminder note to check Health Maintenance for items below Health Maintenance items due: COLORECTAL CANCER SCREENING due on 12/25/2020 MAMMOGRAM due on 01/01/2021 ADVANCE DIRECTIVE DISCUSSION Never done DEPRESSION ASSESSMENT Never done Navigation Signature: Rossy Griggs MA January 28, 2023 11:09 AM documented in this encounterTrihealth [facility]01-12-2023 History of Present illness Narrative* Octavia Landry MA - 12/09/2022 3:22 PM EST POPULATION HEALTH NAVIGATION OUTREACH Action/FYI LM to schedule ad, mammogram, influenza, notes added to upcoming ov. FOBT just ordered 12/02/2022 Pt identified by name and : NO Outreach Outcome/Action Unable to reach patient: Left message for patient to return call. If patient returns call, please assist with scheduling appointment with mammogram MyChart message sent Did you use a PCP flex slot to schedule this appointment? N/A Reason for Outreach Care Gap or Scheduling/Wellness visits Payer: Payor: HU[employer]NA MEDICARE / Plan: [employer] / Product Type: HMO / Care Gap Reviewed:: Breast Cancer screening Colorectal Cancer Screening Flu Vaccine Reminder: Reminder note to check Health Maintenance for items below Health Maintenance items due: COLORECTAL CANCER SCREENING due on 12/25/2020 MAMMOGRAM due on 01/01/2021 ADVANCE DIRECTIVE DISCUSSION Never done DEPRESSION ASSESSMENT Never done Navigation Signature: Octavia Landry MA December 09, 2022 3:23 PM documented in this encounterTrihealth [facility]01-05-2023 Instructions* Patient Instructions* Ada Alonzo APRN.CNP - 12/02/2022 1:17 PM EST Check blood work in 8 weeks documented in this encounterTrihealth [facility]01-05-2023 History of Present illness Narrative* Ada Alonzo APRN.CNP - 12/02/2022 1:01 PM EST 12/02/2022 Patient presents with: Follow Up: Med refills SUBJECTIVE: This is a 67 year old that is here today for Above Complaints. Since last office visit without ER visits or hospitalizations. HTN: Patient is compliant with meds Yes Monitors bp at home: No. Denies side effects: Yes. Chest pain: No. Dyspnea: No. Edema: No. Palpitations: No. Syncope: No. Headache: No. Dizziness: No. HYPOTHYROIDISM: has been out of synthroid for a couple of months, wasn't sure she needed to keep taking it. HYPERLIPIDEMIA: patient has been out of medication for a couple of months Reports she has been walking a lot more. Weight down 15# PAST MEDICAL HISTORY Diagnosis Date Anxiety and depression Cataracts, bilateral s/p surgical removal Hyperlipidemia Hypertension Morbid obesity (HCC) Osteopenia Premature atrial complex Tobacco use ALLERGIES Patient has no known allergies. MEDICATIONS Current Outpatient Medications Medication Sig lisinopril (ZESTRIL, PRINIVIL) 10 mg tablet Take 1 tablet by mouth once daily. hydroCHLOROthiazide (HYDRODIURIL, ESIDRIX) 25 mg tablet Take 1 tablet by mouth once daily. levothyroxine (SYNTHROID) 50 mcg tablet Take 1 tablet by mouth once daily. Take on empty stomach. For Thyroid. (Patient not taking: Reported on 12/02/2022) atorvastatin (LIPITOR) 40 mg tablet Take 1 tablet by mouth daily at bedtime. For cholesterol. (Patient not taking: Reported on 12/02/2022) amitriptyline (ELAVIL) 25 mg tablet Take 1 tablet by mouth daily at bedtime. (Patient not taking: Reported on 12/02/2022) No current facility-administered medications for this visit. Medications and allergies reviewed by this provider. SOCIAL HISTORY Social History Tobacco Use Smoking status: Some Days Packs/day: 0.25 Years: 50.00 Pack years: 12.50 Types: Cigarettes Smokeless tobacco: Never Tobacco comments: Quit 2020 Substance Use Topics Alcohol use: Not Currently Alcohol/week: 5.0 standard drinks Types: 2 Cans of Beer (12oz) per week Drug use: No REVIEW OF SYSTEMS All other reviewed and negative other than HPI. OBJECTIVE: BP 130/82 Pulse 60 Resp 16 Wt 104.2 kg (229 lb 12.8 oz) SpO2 98% BMI 42.03 kg/m . Vital signs reviewed by this provider. APPEARANCE Well appearing, alert, in no acute distress, well-hydrated, well nourished. EYES conjunctiva and sclera normal. HEART RRR with normal S1 and S2, no murmurs, no gallops, no JVD appreciated LUNG clear to auscultation. No wheezes, rhonchi, or rales EXTREMITIES Extremities normal, No deformities, No skin discoloration, and No edema SKIN Skin color, texture, turgor normal, no suspicious rashes or lesions to exposed skin COLORECTAL CANCER SCREENING due on 12/25/2020 MAMMOGRAM due on 01/01/2021 ADVANCE DIRECTIVE DISCUSSION Never done DEPRESSION ASSESSMENT Never done INFLUENZA(1) due on 05/27/2023 SHINGRIX VACCINE(1 of 2) due on 12/02/2023 COVID-19 VACCINE(1) due on 12/02/2023 PNEUMOCOCCAL: 65+(3) due on 12/02/2023 BP CONTROLLED (<130/80) due on 03/31/2023 ANNUAL PCP TEAM CHRONIC DISEASE VISIT due on 04/02/2023 DIABETES SCREEN due on 04/02/2025 LIPID SCREEN due on 04/02/2027 DTAP,TDAP,TD(2 - Td or Tdap) due on 12/01/2027 BONE DENSITY Completed HEPATITIS C SCREENING Completed ASSESSMENT/PLAN: 1. Essential hypertension - ICD9: 401.9, ICD10: I10 (primary diagnosis) - good control - Continue current medication(s) - Encouraged dietary sodium restriction/DASH diet - Recommended regular aerobic exercise. - Recommend home blood pressure monitoring, to bring results in on next visit - Discussed need and benefit for weight loss. - Recheck in 6 months, sooner should new symptoms or problems arise. - Goal of BP <140/90 - Patient counselled on smoking cessation. - Recommended no refined sugar, low refined starch, healthy oil intake (olive oil), healthy protein(fish) along the lines of the Mediterranean diet. - COMP METABOLIC PANEL - LISINOPRIL 10 MG TABLET - HYDROCHLOROTHIAZIDE 25 MG TABLET 2. Hypothyroidism, acquired - ICD9: 244.9, ICD10: E03.9 - Instructed patient on importance of taking on an empty stomach either first thing in the morning or at bedtime. - restart current dose of Synthroid 0.050 mg - Follow up in 8 weeks to check TSH - TSH BLD - LEVOTHYROXINE 50 MCG TABLET 3. Pure hypercholesterolemia - ICD9: 272.0, ICD10: E78.00 - needs to restart her medication, patient agreeable to do so - ATORVASTATIN 40 MG TABLET 4. Screening for colon cancer - ICD9: V76.51, ICD10: Z12.11 - FECAL OCCULT BLOOD TEST 5. Morbid obesity with BMI of 40.0-44.9, adult (HCC) - ICD9: 278.01, V85.41, ICD10: E66.01, Z68.41 Weight decreasing - Behavioral intervention - Lengthy discussion in office today regarding diet and exercise. Discussed use of small plate to eat meals from, drink 1 glass of water 10-15 minutes prior to eating meal, drink 8 glasses of water daily, eat fresh fruit and vegetable during meal first then lean protein such as grilled/baked chicken breast or fish, limit carbohydrate intake (less pasta, breads, rice and snack foods) as well as limiting sugars (desserts etc). Important to count / track your calories and exercise as well. 6. Chronic kidney disease, stage 3a (HCC) - ICD9: 585.3, ICD10: N18.31 - eGFR: Stable - Counseled on avoiding regular use of NSAIDs, adequate hydration, potential risk of IV dye - follow-up in 6 months - CMP in 8 weeks when she gets the TSH drawn Ada Alonzo APRN.KEILA Prescription instructions reviewed with patient as applicable. Patient advised if symptoms do not improve or if symptoms worsen sooner, to contact their primary care physician. Potential red flag symptoms discussed with the patient. Reviewed appropriate action plan to take if red flag symptoms occur. Patient agreeable to treatment plan. I spent a total of 25 minutes on the date of the service which included preparing to see the patient, [id number] patient care, completing clinical documentation, obtaining and/or reviewing separately obtained history, performing a medically appropriate examination, counseling and educating the pat ient/family/caregiver, and ordering medications, tests, or procedures. documented in this encounterTrihealth [facility]12-07-2022 Miscellaneous Notes* Telephone Encounter - Siri Hurst LPN - 11/03/2022 2:08 PM EST Left a message for pt to call the office and ask to speak to a nurse. Siri Hurst LPN * Telephone Encounter - Julia Crowder LPN - 11/02/2022 2:43 PM EST Left message to call & schedule appt. Julia Crowder LPN * Telephone Encounter - Lukas Jernigan MD - 11/02/2022 1:04 PM EST Needs to schedule 6 month follow up. 30 day rx sent. * [facility] En[facility] 11/01/2022 10:01 AM EST Patient has been identified by name and date of : Yes Requested Prescriptions Pending Prescriptions Disp Refills lisinopril (ZESTRIL, PRINIVIL) 10 mg tablet 90 tablet 1 Sig: Take 1 tablet by mouth once daily. hydroCHLOROthiazide (HYDRODIURIL, ESIDRIX) 25 mg tablet 90 tablet 1 Sig: Take 1 tablet by mouth once daily. RX INSTRUCTIONS: Patient is completely out of this medication, please send today. Patient did not make a follow up appointment, Patient aware RX will be sent to pharmacy. No need to notify patient. [facility] documented in this encounterTrihealth Bethes[facility]10-14-2022 History of Present illness Narrative* Yamila Kyle MA - 09/10/2022 10:42 AM EDT POPULATION HEALTH NAVIGATION OUTREACH Action/I Patient is on HCC list for below gaps and needs appt to address : E66.01 - Morbid (severe) obesity due to excess calories
Care gaps/appts to address: Return in about 6 months (around 10/03/2022). COLORECTAL CANCER SCREENING MAMMOGRAM ADVANCE DIRECTIVE DISCUSSION INFLUENZA(1) Outcomes: Attempted to call- no answer- unable to LM-disconnected Also sent [employer] message. Pt identified by name and : NO Outreach Outcome/Action Unable to reach patient: Left message Nadanut message sent Did you use a PCP flex slot to schedule this appointment? N/A Reason for Outreach HCC or suspected condition Payer: Payor: [employer] MEDICARE / Plan: [employer] / Product Type: HMO / Care Gap Reviewed:: Follow-up appointment Breast Cancer screening Colorectal Cancer Screening Flu vaccine Reminder: Reminder note to check Health Maintenance for items below Health Maintenance items due: COVID-19 VACCINE(1) Never done SHINGRIX VACCINE(1 of 2) Never done COLORECTAL CANCER SCREENING due on 12/25/2020 MAMMOGRAM due on 01/01/2021 ADVANCE DIRECTIVE DISCUSSION Never done DEPRESSION ASSESSMENT Never done INFLUENZA(1) due on 07/29/2022 Message Sent to Practice: No Navigation Signature: Yamila Kyle MA September 10, 2022 10:48 AM documented in this encounterTrihealth [facility]hes[facility]08-29-2022 History of Present illness Narrative* Nela Taylor MA - 07/26/2022 3:11 PM EDT POPULATION HEALTH NAVIGATION OUTREACH Action/FYI Attempted to contact patient, no answer and left message requesting a return call to schedule Annual Wellness Visit. [email or web address] message also sent. Patient is on HCC list for below gaps and needs appt to address : E66.01 - Morbid (severe) obesity due to excess calories
patient also due for : ANNUAL WELLNESS VISIT COLORECTAL CANCER SCREENING MAMMOGRAM Pt identified by name and : NO Outreach Outcome/Action Unable to reach patient: Left message MyChart message sent Did you use a PCP flex slot to schedule this appointment? N/A Reason for Outreach HCC or suspected condition Payer: Payor: [employer] MEDICARE / Plan: [employer] / Product Type: HMO / Care Gap Reviewed:: Annual Wellness visit Breast Cancer screening Colorectal Cancer Screening Reminder: Reminder note to check Health Maintenance for items below Health Maintenance items due: COVID-19 VACCINE(1) Never done SHINGRIX VACCINE(1 of 2) Never done COLORECTAL CANCER SCREENING due on 12/25/2020 MAMMOGRAM due on 01/01/2021 ADVANCE DIRECTIVE DISCUSSION Never done DEPRESSION SCREENING due on 03/11/2022 Message Sent to Practice: No Navigation Signature: Nela Taylor MA July 26, 2022 3:11 PM documented in this encounterTrihealth [facility]06-16-2022 History of Present illness Narrative* Bernie Dwyer - 05/13/2022 9:07 AM EDT POPULATION HEALTH NAVIGATION OUTREACH Action/FYI [employer] caregaps Patient due for the following Follow up- last OV 04/02/2022 noted toReturn in about 6 months (around 10/03/2022). Colorectal Cancer Screening Advance Directives Mammogram - ordered on 02/24/2022 Left voicemail for patient to return call [employer] message sent Pt identified by name and : NO Outreach Outcome/Action Unable to reach patient: Left message [email or web address] message sent Did you use a PCP flex slot to schedule this appointment? N/A Reason for Outreach Care Gap or Scheduling/Wellness visits Payer: Payor: [employer] MEDICARE / Plan: [employer] / Product Type: HMO / Care Gap Reviewed:: Follow-up appointment Breast Cancer screening Colorectal Cancer Screening Reminder: Reminder note to check Health Maintenance for items below Health Maintenance items due: COVID-19 VACCINE(1) Never done SHINGRIX VACCINE(1 of 2) Never done COLORECTAL CANCER SCREENING due on 12/25/2020 MAMMOGRAM due on 01/01/2021 ADVANCE DIRECTIVE DISCUSSION Never done DEPRESSION SCREENING due on 03/11/2022 Message Sent to Practice: No Navigation Signature: Bernie Dwyer May 13, 2022 9:07 AM documented in this encounterTri[facility] Miscellaneous Notes* Telephone Encounter - My Monsivais MA - 04/05/2022 3:00 PM EDT Patient notified of results, verbalizes understanding of instructions. My Monsivais MA * Telephone Encounter - My Monsivais MA - 04/05/2022 9:34 AM EDT Contacted Lab Client Services. Tech states an A1C can not be added on d/t no lavender top tube was drawn. Patient will need to return to lab. Unable to reach patient. Unable to leave message d/t mailbox being full. Please try again later. My Monsivais MA * Telephone Encounter - Ada Alonzo APRN.CNP - 04/05/2022 9:06 AM EDT Please call and see if lab can add on A1c to current blood work drawn, if not please have patient return for this. Ada Alonzo APRN.CNP documented in this encounterTri[facility]05-06-2022 History of Present illness Narrative* Lukas Jernigan MD - 04/02/2022 10:13 AM EDT Chief Complaint Patient presents with: ER F/U: 03/31/22 HPI Anastasia Bui is a 67 year old female who presents here today for ER Follow Up. Patient was evaluated at [facility] ED on 03/31 for marked bradycardia in the 30's in our office. Increased to 40's while in the ED and EKG showed sinus bradycardia without heart block. Labs did show elevatedTSH to 7. Discussed case with cardiology who recommended she hold her beta souleymane and f/u with ouroffice in 2 days for repeat EKG. Since stopping her metoprolol, her HR has normalized today. States she feels better since stopping the medication with less fatigue and feels like her heart beat is beating normally. BP well controlled on current regimen. Denies chest pain, SOB, palpitations, LE edema. Past medical history, appointments, medications, allergies reviewed. Previous Medical History PAST MEDICAL HISTORY Diagnosis Date Anxiety and depression Cataracts, bilateral s/p surgical removal Hyperlipidemia Hypertension Morbid obesity (HCC) Osteopenia Tobacco use Previous Surgical History PAST SURGICAL HISTORY Procedure Laterality Date DELIVERY ONLY 1989 COLONOSCOPY 09/01/12 XCAPSL CTRC RMVL INSJ IO LENS PROSTH CPLX WO ECP 02/17/12 03/01/12 bilateral Family History FAMILY HISTORY Problem Relation Age of Onset Stroke Father Diabetes Father Hypertension Father Alcohol/Drug Father Cancer Mother ovarian Coronary Artery Disease Sister DC Arthritis Brother Patient Allergies ALLERGIES No Known Allergies Current Medications Current Outpatient Medications on File Prior to Visit Medication Sig atorvastatin (LIPITOR) 40 mg tablet Take 1 tablet by mouth daily at bedtime. For cholesterol. lisinopril (ZESTRIL, PRINIVIL) 10 mg tablet Take 1 tablet by mouth once daily. hydroCHLOROthiazide (HYDRODIURIL, ESIDRIX) 25 mg tablet Take 1 tablet by mouth once daily. albuterol HFA (PROVENTIL HFA, VENTOLIN HFA) 90 mcg/actuation inhaler Inhale 2 Puffs as instructed every 4 hours as needed. fluticasone (FLONASE) 50 mcg/actuation nasal spray Use 2 Sprays in each nostril once daily. Rinse mouth after use. cyclobenzaprine (FLEXERIL) 5 mg tablet Take 1 tablet by mouth twice daily as needed for Muscle Spasm. amitriptyline (ELAVIL) 25 mg tablet Take 1 tablet by mouth daily at bedtime. No current facility-administered medications on file prior to visit. Social History Social History Tobacco Use Smoking status: Former Smoker Packs/day: 0.25 Years: 50.00 Pack years: 12.50 Smokeless tobacco: Never Used Tobacco comment: Quit 2020 Substance Use Topics Alcohol use: Not Currently Alcohol/week: 5.0 standard drinks Types: 2 Cans of Beer (12oz) per week Drug use: No Review of Symptoms REVIEW OF SYSTEMS See HPI EXAM: BP 110/80 Pulse 75 Resp 18 Wt 109.6 kg (241 lb 9.6 oz) SpO2 97% BMI 44.19 kg/m General Appearance: Well appearing, alert, in no acute distress, well-hydrated, well nourished.. Skin: Skin color, texture, turgor normal, no suspicious rashes or lesions. Lungs: Lungs clear to auscultation. No wheezing, rhonchi, rales.. Heart: RRR without murmur, gallop, or rubs. No ectopy. Abdomen: Normal abdominal exam, Abdomen soft, non-tender. Bowel sounds normal. No masses, organomegaly. Extremities: No deformities, edema, skin discoloration, clubbing or cyanosis. Good capillary refill. . Health Maintenance List COVID-19 VACCINE(1) Never done SHINGRIX VACCINE(1 of 2) Never done COLORECTAL CANCER SCREENING due on 12/25/2020 MAMMOGRAM due on 01/01/2021 ADVANCE DIRECTIVE DISCUSSION Never done DEPRESSION SCREENING due on 03/11/2022 INFLUENZA(Season Ended) due on 07/29/2022 PNEUMOVAX AGE 65 AND OVER WITH 5YR LOOKBACK(1) due on 12/01/2022 DIABETES SCREEN due on 12/24/2022 ANNUAL PCP TEAM CHRONIC DISEASE VISIT due on 03/31/2023 BP CONTROLLED (<130/80) due on 03/31/2023 LIPID SCREEN due on 12/24/2024 DTAP,TDAP,TD(2 - Td or Tdap) due on 12/01/2027 BONE DENSITY Completed HEPATITIS C SCREENING Completed MENINGOCOCCAL CONJUGATE Aged Out Data reviewed EKG: Sinus rhythm at 84 bpm with PACs. Otherwise normal EKG. ASSESSMENT/PLAN: 1. Bradycardia - ICD9: 427.89, ICD10: R00.1 (primary diagnosis) Resolved with cessation of metoprolol. EKG NSR today. BP well controlled, so will continue current reigmen and obtain labs as ordered to follow up on elevated TSH in the ED. Will call with results. F/u in 6 months or PRN. - ECG COMPLETE - COMP METABOLIC PANEL 2. Elevated TSH - ICD9: 794.5, ICD10: R79.89 - TSH BLD - T4 FREE/FREE THYROX - THYROID PEROXIDASE ANTIBODY BLOOD 3. Primary hypertension - ICD9: 401.9, ICD10: I10 - good control - Continue current medication(s) - Encouraged dietary sodium restriction/DASH diet - Recommended regular aerobic exercise. - Reviewed risks of HTN and principles of treatment - Goal of BP <140/90 4. Pure hypercholesterolemia - ICD9: 272.0, ICD10: E78.00 - LIPID PANEL, NONFASTING - COMP METABOLIC PANEL Lukas Jernigan MD documented in this encounterTri[facility]05-05-2022 Miscellaneous Notes* Telephone Encounter - Sara Mendieta Ma - 04/01/2022 10:20 AM EDT Pt scheduled for ER f/u on 04/02/22 @ 10:00 am with PCP. Sara Mendieta Ma * Telephone Encounter - Jaky Franz Ma - 03/31/2022 3:31 PM EDT Spouse will have patient call to schedule ER follow up Jaky Franz Ma * Telephone Encounter - Lukas Jernigan MD - 03/31/2022 3:14 PM EDT Called by Dr. Patterson at [facility] ED regarding bradycardia. Asymptomatic on current regimen. TSH slightly elevated at 7. Cardiology consulted who recommended she hold her beta souleymane and would need EKG on in2 days to reassess. Please call patient this afternoon to schedule OV on Tuesday. documented in this encounterTri[facility]05-04-2022 History of Present illness Narrative* Ada Alonzo, JEREMY.SLAB PULLER - 03/31/2022 11:39 AM EDT 03/31/2022 Patient presents with: Recheck SUBJECTIVE: This is a 67 year old that is here today for Above Complaints. Since last office visit has been in good health without ER visits or hospitalizations. HTN: Patient is compliant with meds Yes Monitors bp at home: No. Denies side effects: Yes. Chest pain: No. Dyspnea: No. Edema: No. Palpitations: No. Syncope: No. Headache: No. Dizziness: No. HYPERLIPIDEMIA: Patient is taking medications: Yes. Patient is watching diet: No. Patient denies myalgias: Yes. Patient denies gi upset: Yes Uses albuterol inhaler occasionally more so in the summer due to allergies. Denies SOB, dyspnea, wheezing or coughing Heart rate low on exam. Denies dizziness, lightheadedness, presyncope or syncope PAST MEDICAL HISTORY Diagnosis Date Anxiety and depression Cataracts, bilateral s/p surgical removal Hyperlipidemia Hypertension Morbid obesity (HCC) Osteopenia Tobacco use ALLERGIES Patient has no known allergies. MEDICATIONS Current Outpatient Medications Medication Sig lisinopril (ZESTRIL, PRINIVIL) 10 mg tablet Take 1 tablet by mouth once daily. hydroCHLOROthiazide (HYDRODIURIL, ESIDRIX) 25 mg tablet Take 1 tablet by mouth once daily. metoprolol tartrate, short acting, (LOPRESSOR) 50 mg tablet Take 1 tablet by mouth twice daily. albuterol HFA (PROVENTIL HFA, VENTOLIN HFA) 90 mcg/actuation inhaler Inhale 2 Puffs as instructed every 4 hours as needed. fluticasone (FLONASE) 50 mcg/actuation nasal spray Use 2 Sprays in each nostril once daily. Rinse mouth after use. atorvastatin (LIPITOR) 40 mg tablet Take 1 tablet by mouth daily at bedtime. For cholesterol. cyclobenzaprine (FLEXERIL) 5 mg tablet Take 1 tablet by mouth twice daily as needed for Muscle Spasm. amitriptyline (ELAVIL) 25 mg tablet Take 1 tablet by mouth daily at bedtime. No current facility-administered medications for this visit. Medications and allergies reviewed by this provider. SOCIAL HISTORY Social History Tobacco Use Smoking status: Former Smoker Packs/day: 0.25 Years: 50.00 Pack years: 12.50 Smokeless tobacco: Never Used Tobacco comment: Quit 2020 Substance Use Topics Alcohol use: Not Currently Alcohol/week: 5.0 standard drinks Types: 2 Cans of Beer (12oz) per week Drug use: No REVIEW OF SYSTEMS All other reviewed and negative other than HPI. OBJECTIVE: BP 112/82 Pulse (!) 45 Resp 18 Wt 111.4 kg (245 lb 9.6 oz) SpO2 98% BMI 44.92 kg/m . Vital signs reviewed by this provider. APPEARANCE Well appearing, alert, in no acute distress, well-hydrated, well nourished. and Obese EYES PERRLA, conjunctiva and sclera normal. HEART RRR with normal S1 and S2, no murmurs, no gallops, no JVD appreciated, Rate bradycardia and Rhythm regular rate with premature beats EXTREMITIES Extremities normal, No deformities, No skin discoloration and No edema SKIN Skin color, texture, turgor normal, no suspicious rashes or lesions to exposed skin Component Latest Ref Rng & Units 12/24/2019 12/25/2019 Protein, Total 6.3 - 8.0 g/dL 7.5 Albumin 3.9 - 4.9 g/dL 4.2 Calcium 8.5 - 10.2 mg/dL 9.4 Bilirubin, Total 0.2 - 1.3 mg/dL 0.6 Alkaline Phosphatase 34 - 123 U/L 55 AST 13 - 35 U/L 19 Glucose 74 - 99 mg/dL 107 (H) BUN 7 - 21 mg/dL 24 (H) Creatinine 0.58 - 0.96 mg/dL 1.15 (H) Sodium 136 - 144 mmol/L 139 Potassium 3.7 - 5.1 mmol/L 4.1 Chloride 97 - 105 mmol/L 100 CO2 22 - 30 mmol/L 26 Anion Gap 9 - 18 mmol/L 13 ALT 7 - 38 U/L 12 eGFR- 57 eGFR-All Other Races . 47 Total Cholesterol, Nonfasting <200 mg/dL 228 (H) Triglycerides, Nonfasting <150 mg/dL 88 HDL Cholesterol, Nonfasting >39 mg/dL 37 (L) LDL Cholesterol, Nonfasting <100 mg/dL 173 (H) Non HDL Cholesterol, Nonfasting <130 mg/dL 191 (H) VLDL Cholesterol, Nonfasting <30 mg/dL 18 Total Chol/HDL Ratio, Nonfasting <5.10 mg/dL 6.16 (H) LDL/HDL Ratio, Nonfasting <2.54 mg/dL 4.68 (H) Hemoglobin A1C 4.3 - 5.6 % 6.3 (H) Estimated Average Glucose mg/dL 134 Occult Blood, Stool Negative Negative COVID-19 VACCINE(1) Never done SHINGRIX VACCINE(1 of 2) Never done COLORECTAL CANCER SCREENING due on 12/25/2020 MAMMOGRAM due on 01/01/2021 ADVANCE DIRECTIVE DISCUSSION Never done BP CONTROLLED (<130/80) due on 03/11/2022 DEPRESSION SCREENING due on 03/11/2022 INFLUENZA(Season Ended) due on 07/29/2022 PNEUMOVAX AGE 65 AND OVER WITH 5YR LOOKBACK(1) due on 12/01/2022 DIABETES SCREEN due on 12/24/2022 ANNUAL PCP TEAM CHRONIC DISEASE VISIT due on 03/31/2023 LIPID SCREEN due on 12/24/2024 DTAP,TDAP,TD(2 - Td or Tdap) due on 12/01/2027 BONE DENSITY Completed HEPATITIS C SCREENING Completed MENINGOCOCCAL CONJUGATE Aged Out ASSESSMENT/PLAN: 1. Bradycardia - ICD9: 427.89, ICD10: R00.1 (primary diagnosis) - discussed EKG with PCP- recommend ER evaluation - no red flag symptoms at this time - ECG COMPLETE EKG Interpretation: RHYTHM: Marked Sinus bradycardia at 39 beats per minute AXIS: Normal axis INTERVALS: Normal WI interval QRS COMPLEX: Normal ST SEGMENT: Normal ST-T segments QTc : 420 - patient is agreeable to go to ER. Report called ti Dr. Patterson at [facility]- patient given copy camera operator of office EKG to take with her 2. Pure hypercholesterolemia - ICD9: 272.0, ICD10: E78.00 - Obtain blood work fasting - LIPID PANEL BASIC - ATORVASTATIN 40 MG TABLET - follow-up pending blood work 3. Primary hypertension - ICD9: 401.9, ICD10: I10 - good control - Discontinue metoprolol (Lopressor/Toprol) - Encouraged dietary sodium restriction/DASH diet - Recommended regular aerobic exercise. - Recommend home blood pressure monitoring, to bring results in on next visit - Discussed need and benefit for weight loss. - Goal of BP <130/80 - follow-up after hospital discharge Ada Alonzo APRN.CNP Prescription instructions reviewed with patient as applicable. Patient advised if symptoms do not improve or if symptoms worsen sooner, to contact their primary care physician. Potential red flag symptoms discussed with the patient. Reviewed appropriate action plan to take if red flag symptoms occur. Patient agreeable to treatment plan. documented in this encounterTri[facility]03-31-2022 Miscellaneous Notes* Telephone Encounter - Ada Alonzo APRN.CNP - 02/25/2022 3:58 PM EDT Patient needs to come in for office appointment- has been almost a year since her last one. I see she is scheduled for video visit tomorrow- please see if she can come to office if not sage reschedule so she can come in. Ada Alonzo APRN.CNP * Telephone Encounter - Sue Zaman Ma - 02/24/2022 10:40 AM EDT LUIS E 03/11/21 NOV not scheduled at this time Sue Zaman Ma * Telephone Encounter - Suzie Lombardi - 02/24/2022 10:32 AM EDT Patient has been identified by name and date of : Yes Pending Prescriptions Disp Refills LISINOPRIL 10 MG TABLET 30 tablet 5 Sig: Take 1 tablet by mouth once daily. NERY: No HYDROCHLOROTHIAZIDE 25 MG TABLET 30 tablet 5 Sig: Take 1 tablet by mouth once daily. NERY: No METOPROLOL TARTRATE 50 MG TABLET 60 tablet 5 Sig: Take 1 tablet by mouth twice daily. NERY: No RX INSTRUCTIONS: Patient aware RX will be sent to pharmacy. No need to notify patient. Suzie Lombardi documented in this encounter[address]-2019 History of Past illness Narrative* Problem Noted Date Resolved Date Hyperlipidemia 06/22/2019 documented as of this encounter (statuses as of 02/25/2022) [place] [address] History of Past illness Narrative* Problem Noted Date Resolved Date Hyperlipidemia 06/22/2019 documented as of this encounter (statuses as of 02/25/2022) [place] [address] History of Past illness Narrative* Problem Noted Date Resolved Date Hyperlipidemia 06/22/2019 documented as of this encounter (statuses as of 03/31/2022) [address] History of Past illness Narrative* Problem Noted Date Resolved Date Hyperlipidemia 06/22/2019 documented as of this encounter (statuses as of 04/01/2022) [address] History of Past illness Narrative* Problem Noted Date Resolved Date Hyperlipidemia 06/22/2019 documented as of this encounter (statuses as of 04/02/2022) [place] [address] History of Past illness Narrative* Problem Noted Date Resolved Date Hyperlipidemia 06/22/2019 documented as of this encounter (statuses as of 04/05/2022) [address] History of Past illness Narrative* Problem Noted Date Resolved Date Hyperlipidemia 06/22/2019 documented as of this encounter (statuses as of 05/13/2022) [address] History of Past illness Narrative* Problem Noted Date Resolved Date Hyperlipidemia 06/22/2019 documented as of this encounter (statuses as of 07/26/2022) [place] [address] History of Past illness Narrative* Problem Noted Date Resolved Date Hyperlipidemia 06/22/2019 documented as of this encounter (statuses as of 09/10/2022) [address] History of Past illness Narrative* Problem Noted Date Resolved Date Hyperlipidemia 06/22/2019 documented as of this encounter (statuses as of 11/05/2022) [address] History of Past illness Narrative* Problem Noted Date Resolved Date Hyperlipidemia 06/22/2019 documented as of this encounter (statuses as of 12/03/2022) [address] History of Past illness Narrative* Problem Noted Date Resolved Date Hyperlipidemia 06/22/2019 documented as of this encounter (statuses as of 12/09/2022) [address] History of Past illness Narrative* Problem Noted Date Resolved Date Hyperlipidemia 06/22/2019 documented as of this encounter (statuses as of 01/28/2023) [address] History of Past illness Narrative* Problem Noted Date Resolved Date Hyperlipidemia 06/22/2019 documented as of this encounter (statuses as of 02/21/2023) [address] History of Past illness Narrative* Problem Noted Date Resolved Date Hyperlipidemia 06/22/2019 documented as of this encounter (statuses as of 06/01/2023) [address] History of Past illness Narrative* Problem Noted Date Diagnosed Date Resolved Date Hyperlipidemia 06/22/2019 documented as of this encounter (statuses as of 08/10/2023) [address] History of Past illness Narrative* Problem Noted Date Diagnosed Date Resolved Date Hyperlipidemia 06/22/2019 documented as of this encounter (statuses as of 09/21/2023) [address] History of Past illness Narrative* Problem Noted Date Diagnosed Date Resolved Date Hyperlipidemia 06/22/2019 documented as of this encounter (statuses as of 10/06/2023) [address] History of Past illness Narrative* Problem Noted Date Diagnosed Date Resolved Date Hyperlipidemia 06/22/2019 documented as of this encounter (statuses as of 01/06/2024) [address] History of Past illness Narrative* Problem Noted Date Diagnosed Date Resolved Date Hyperlipidemia 06/22/2019 documented as of this encounter (statuses as of 01/16/2024) [address] History of Past illness Narrative* Problem Noted Date Diagnosed Date Resolved Date Hyperlipidemia 06/22/2019 documented as of this encounter (statuses as of 01/23/2024) [facility] note* Diagnosis Annual physical exam Routine general medical examination at a health care facility documented in this encounter [facility] note* Diagnosis Bradycardia- Primary Other specified cardiac dysrhythmias Pure hypercholesterolemia Primary hypertension Unspecified essential hypertension documented in this encounter [facility] note* Diagnosis Bradycardia- Primary Other specified cardiac dysrhythmias Elevated TSH Nonspecific abnormal results of thyroid function study Primary hypertension Unspecified essential hypertension Pure hypercholesterolemia documented in this encounter [facility] note* Diagnosis Elevated glucose- Primary Other abnormal glucose documented in this encounter [facility] note* Diagnosis Pure hypercholesterolemia Annual physical exam Routine general medical examination at a health care facility [facility] Diagnosis Essential hypertension- Primary Unspecified essential hypertension Hypothyroidism, acquired Unspecified hypothyroidism Pure hypercholesterolemia Screening for colon cancer Special screening for malignant neoplasms, colon Morbid obesity with BMI of 40.0-44.9, adult (HCC) Morbid obesity Chronic kidney disease, stage 3a (HCC) documented in this encounter [facility] note* Diagnosis Essential hypertension- Primary Unspecified essential hypertension Hypothyroidism, acquired Unspecified hypothyroidism Pure hypercholesterolemia Prediabetes Other abnormal glucose Encounter for screening fecal occult blood testing Special screening for malignant neoplasms, colon Obesity, Class III, BMI >= 40 Morbid obesity Tobacco use Tobacco use disorder documented in this encounter [facility] note* Diagnosis Colitis- Primary Other and unspecified noninfectious gastroenteritis and colitis documented in this encounter [facility] note* Diagnosis Encounter for screening mammogram for breast cancer documented in this encounter [facility] for referral (narrative)* Outpatient Procedure (Routine) - Pending Review Specialty Diagnoses / Procedures Referred By Contradha t Referred To [facility] Diagnoses Bradycardia Procedures ECG COMPLETE ECG ROUTINE ECG W/LEAST 12 LDS W/I&R PodAda rodriguez APRN.SLAB PULLER [address] [place] [address] [facility] [place] [address] [place] [address] Referral ID Status Reason Start Date Expiration Date Visits Requested Visits Authorized [id number] Pending Review Auto-Generat ed Referral 03/31/2022 03/31/2023 1 1 [facility] for referral (narrative)* Outpatient Procedure (Routine) - Pending Review Specialty Diagnoses / Procedures Referred By Amy de dios Referred To [facility] Diagnoses Bradycardia Procedures ECG COMPLETE ECG ROUTINE ECG W/LEAST 12 LDS W/I&R Lukas Jernigan MD [address] [place] [address] [facility] [place] [address] [place] [id number] Referral ID Status Reason Start Date Expiration Date Visits Requested Visits Authorized [id number] Pending Review Auto-Generat ed Referral 04/02/2022 04/02/2023 1 1 [facility] for referral (narrative)* Diagnostic Procedure Only (Routine) - Pending Review Specialty Diagnoses / Procedures Referred By Amy de dios Referred To Contact [facility] Diagnoses Encounter for screening mammogram for breast cancer Procedures HILDA SCREENING SCREENING MAMMOGRAPHY BI 2-VIEW BREAST INC CAD Lukas Jernigan MD [address] [place] [address] [facility] [address] [place] [id number] Referral ID Status Reason Start Date Expiration Date Visits Requested Visits Authorized [id number] Pending Review Auto-Generat ed Referral 01/18/2024 02/16/2025 1 1 [facility] Summary Purpose Family History No Family History Records FoundNo Family History Records Found Advance Directives No Advanced Directives Records FoundNo Advanced Directives Records Found Additional Source Comments INFORMATION SOURCE (unrecogn ized section and content) DATE CREATED AUTHOR AUTHOR'S ORGANIZ ATION 01/16/2024 [facility] Source Comments (unrecognize d section and content) In the event this informatio n is protected by the Federal Confidentiality of Alcohol and Drug Abuse Patient Records regulations: The Federal rules restrict any use of the information to criminally investigate or prosecute any alcohol or drug abuse patient.[facility] Hospital[facility] the event this information is protected by the Federal Confidentiality of Alcohol and Drug Abuse Patient Records regulations: The Federal rules restrict any use of the information to criminally investigate or prosecute any alcohol or drug abuse patient.[facility] Hospital[facility] the event this information is protected by the Federal Confidentiality of Alcohol and Drug Abuse Patient Records regulations: The Federal rules restrict any use of the information to criminally investigate or prosecute any alcohol or drug abuse patient.[facility] Hospital[facility] the event this information is protected by the Federal Confidentiality of Alcohol and Drug Abuse Patient Records regulations: The Federal rules restrict any use of the information to criminally investigate or prosecute any alcohol or drug abuse patient.[facility] HospitalIn the event this information is protected by the Federal Confidentiality of Alcohol and Drug Abuse Patient Records regulations: The Federal rules restrict any use of the information to criminally investigate or prosecute any alcohol or drug abuse patient.[facility] HospitalIn the event this information is protected by the Federal Confidentiality of Alcohol and Drug Abuse Patient Records regulations: The Federal rules restrict any use of the information to criminally investigate or prosecute any alcohol or drug abuse patient.[facility] HospitalIn the event this information is protected by the Federal Confidentiality of Alcohol and Drug Abuse Patient Records regulations: The Federal rules restrict any use of the information to criminally investigate or prosecute any alcohol or drug abuse patient.[facility] HospitalIn the event this information is protected by the Federal Confidentiality of Alcohol and Drug Abuse Patient Records regulations: The Federal rules restrict any use of the information to criminally investigate or prosecute any alcohol or drug abuse patient.[facility] HospitalIn the event this information is protected by the Federal Confidentiality of Alcohol and Drug Abuse Patient Records regulations: The Federal rules restrict any use of the information to criminally investigate or prosecute any alcohol or drug abuse patient.[facility] HospitalIn the event this information is protected by the Federal Confidentiality of Alcohol and Drug Abuse Patient Records regulations: The Federal rules restrict any use of the information to criminally investigate or prosecute any alcohol or drug abuse patient.[facility] HospitalIn the event this information is protected by the Federal Confidentiality of Alcohol and Drug Abuse Patient Records regulations: The Federal rules restrict any use of the information to criminally investigate or prosecute any alcohol or drug abuse patient.[facility] HospitalIn the event this information is protected by the Federal Confidentiality of Alcohol and Drug Abuse Patient Records regulations: The Federal rules restrict any use of the information to criminally investigate or prosecute any alcohol or drug abuse patient.[facility] HospitalIn the event this information is protected by the Federal Confidentiality of Alcohol and Drug Abuse Patient Records regulations: The Federal rules restrict any use of the information to criminally investigate or prosecute any alcohol or drug abuse patient.[facility] HospitalIn the event this information is protected by the Federal Confidentiality of Alcohol and Drug Abuse Patient Records regulations: The Federal rules restrict any use of the information to criminally investigate or prosecute any alcohol or drug abuse patient.[facility] HospitalIn the event this information is protected by the Federal Confidentiality of Alcohol and Drug Abuse Patient Records regulations: The Federal rules restrict any use of the information to criminally investigate or prosecute any alcohol or drug abuse patient.[facility] HospitalIn the event this information is protected by the Federal Confidentiality of Alcohol and Drug Abuse Patient Records regulations: The Federal rules restrict any use of the information to criminally investigate or prosecute any alcohol or drug abuse patient.[facility] HospitalIn the event this information is protected by the Federal Confidentiality of Alcohol and Drug Abuse Patient Records regulations: The Federal rules restrict any use of the information to criminally investigate or prosecute any alcohol or drug abuse patient.[facility] HospitalIn the event this information is protected by the Federal Confidentiality of Alcohol and Drug Abuse Patient Records regulations: The Federal rules restrict any use of the information to criminally investigate or prosecute any alcohol or drug abuse patient.[facility] HospitalIn the event this information is protected by the Federal Confidentiality of Alcohol and Drug Abuse Patient Records regulations: The Federal rules restrict any use of the information to criminally investigate or prosecute any alcohol or drug abuse patient.[facility] HospitalIn the event this information is protected by the Federal Confidentiality of Alcohol and Drug Abuse Patient Records regulations: The Federal rules restrict any use of the information to criminally investigate or prosecute any alcohol or drug abuse patient.[facility] HospitalIn the event this information is protected by the Federal Confidentiality of Alcohol and Drug Abuse Patient Records regulations: The Federal rules restrict any use of the information to criminally investigate or prosecute any alcohol or drug abuse patient.[facility] Reason for Visit (unrecogniz ed section and content) Reason Onset Date Comments Refill Request 02/24/2022 Reason Comments Recheck Reason Comments Patient Update Reason Comments ER F/U 03/31/22 Reason Comments Orders A1C lab Reason Onset Date Comments Population Health Navigation Outreach 05/13/2022 [employer] Reason Onset Date Comments Population Health Navigation Outreach 07/26/2022 HCC gap Reason Onset Date Comments Population Health Navigation Outreach 09/10/2022 HCC Reason Comments Refill Request Reason Comments Follow Up Med refills Reason Onset Date Comments Population Health Navigation Outreach 12/09/2022 [employer] care gaps Reason Onset Date Comments Population Health Navigation Outreach 01/28/2023 [employer] Care Gaps Reason Comments Letter Reason Comments F/U 6 Month Reason Onset Date Comments Population Health Navigation Outreach 08/10/2023 [employer] Care Gaps Reason Comments Patient inpatient at [facility] Reason Onset Date Comments Transition Of Care 09/05/2023 Reason Onset Date Comments Population Health Navigation Outreach 01/06/2024 [employer] Care Gaps Care Teams (unrecognized sec tion and content) Unit Aide Tech Relationship Specialty Start Date End Date Lukas Jernigan MD [address] [place] [address] PCP - General Family Practice 12/02/17 Unit Aide Tech Relationship Specialty Start Date End Date Lukas Jernigan MD [address] [place] [address] PCP - General Family Practice 12/02/17 Unit Aide Tech Relationship Specialty Start Date End Date Lukas Jeringan MD [address] [place] [address] PCP - General Family Practice 12/02/17 Unit Aide Tech Relationship Specialty Start Date End Date Lukas Jernigan MD [address] [place] [address] PCP - General Family Practice 12/02/17 Unit Aide Tech Relationship Specialty Start Date End Date Lukas Jernigan MD [address] [place] [address] PCP - General Family Practice 12/02/17 Unit Aide Tech Relationship Specialty Start Date End Date Lukas Jernigan MD [address] [place] [address] PCP - General Family Practice 12/02/17 Unit Aide Tech Relationship Specialty Start Date End Date Lukas Jernigan MD [address] [place] [address] PCP - General Family Medicine 12/02/17 Unit Aide Tech Relationship Specialty Start Date End Date Lukas Jernigan MD [address] [place] [address] PCP - General Family Medicine 12/02/17 Unit Aide Tech Relationship Specialty Start Date End Date Lukas Jernigan MD [address] [place] [address] PCP - General Family Medicine 12/02/17 Unit Aide Tech Relationship Specialty Start Date End Date Lukas Jernigan MD [address] [place] [address] PCP - General Family Medicine 12/02/17 Unit Aide Tech Relationship Specialty Start Date End Date Lukas Jernigan MD [address] [place] [address] PCP - General Family Medicine 12/02/17 Unit Aide Tech Relationship Specialty Start Date End Date Lukas Jernigan MD [address] [place] [address] PCP - General Family Medicine 12/02/17 Unit Aide Tech Relationship Specialty Start Date End Date Lukas Jernigan MD [address] [place] [address] PCP - General Family Medicine 12/02/17 Unit Aide Tech Relationship Specialty Start Date End Date Lukas Jernigan MD [address] [place] [address] PCP - General Family Medicine 12/02/17 Unit Aide Tech Relationship Specialty Start Date End Date Lukas Jernigan MD [address] [place] [address] PCP - General Family Medicine 12/02/17 Unit Aide Tech Relationship Specialty Start Date End Date Lukas Jernigan MD [address] [place] [address] PCP - General Family Medicine 12/02/17 Unit Aide Tech Relationship Specialty Start Date End Date Lukas Jernigan MD [address] [place] [address] PCP - General Family Medicine 12/02/17 FOR RECORDS PERTAINING TO PATIENTS WHO ARE OR HAVE BEEN ENROLLED IN A CHEMICAL DEPENDENCY/SUBSTANCEABUSE PROGRAM, SOME INFORMATION MAY BE OMITTED. This clinical summary was aggregated from multiple sources. Caution should be exercised in using it in the provision of clinical care. This summary normalizes information from multiple sources, and as a consequence, information in this document may materially change the coding, format and clinical context of patient data. In addition, data may be omitted in some cases. CLINICAL DECISIONS SHOULD BE BASED ON THE PRIMARY CLINICAL RECORDS. [facility]. provides no warranty or guarantee of the accuracy or completeness of information in this document.
[2024-01-28] MEDS: Naproxen 375 MG Tablet PO (18:52)
[2024-01-28 18:59] VITALS: BP 92/72; PULSE 78; RESP 17; TEMP 36.9; O2SAT 98
== END 2024-01-28 19:00 | disposition home or self-care (01) ==
PROVIDERS: Emergency Provider Student in an Organized Health Care Education/Training Program; PCP Family Medicine; Visit Provider Student in an Organized Health Care Education/Training Program
DX: J11.1 Influenza due to unidentified influenza virus with other respiratory manifestations (principal); B97.4 Respiratory syncytial virus as the cause of diseases classified elsewhere; I10 Essential (primary) hypertension; Z79.1 Long term (current) use of non-steroidal anti-inflammatories (NSAID); E78.5 Hyperlipidemia, unspecified; M54.9 Dorsalgia, unspecified; E03.9 Hypothyroidism, unspecified; F17.210 Nicotine dependence, cigarettes, uncomplicated
CPT/HCPCS: 71046; 87631; 94640; 99283